=== PATIENT | male | born 1950 | race Caucasian/White ===

== ENCOUNTER 2023-08-09 14:44 | Inpatient (IN) | payer MEDICARE, SELFPAY ==
[2023-08-09] VITALS (15 sets, daily range): BP systolic 86–133; BP diastolic 65–96; BMI 27.6; BMI 26.3
--- NOTE | 2023-08-09 11:02 | ED.GENMED ---
History of Present Illness
General
Chief Complaint: Cardiac Symptoms
Source: patient
Exam Limitations: none
Time Seen by Provider: 08/09/23 10:39
Nursing documentation reviewed up to this point in time: agreed with
Travel History
Have you had any contact with someone who has COVID-19?: No
Do you have any symptoms of coronavirus? Fever > 100 degrees, chills, cough, shortness of breath, sore throat, loss of taste or smell, muscle aches, or headache?: No
History of Present Illness
History of Present Illness:
The patient is a 73-year-old male with past ministry of seizures paroxysmal A-fib currently on Eliquis and metoprolol, hyperlipidemia, known significant coronary artery disease presenting to the emergency department today with concerns of worsening
shortness of breath has been having this worsen over the past few months but specifically worsening over the past few days. Recently had a cardiac catheterization 1 week ago that showed at least 90% blockage of at least 3 coronary arteries. They
were recommending for surgery for this was getting assessed by the CT surgeon today to send him to the emergency department for further assessment due to significant ongoing symptoms. Here he claims of shortness of breath denies ongoing chest pain
no nausea vomiting fevers
Review of Systems
Review of Systems
Allergies reviewed?: Yes
All Other Systems: ROS reviewed and negative except as documented in HPI and ROS
Phy Exam
Physical Exam
Physical Exam:
GENERAL: Alert , in no apparent distress
EYE: pupils equal and reactive
NECK: Supple, no significant adenopathy.
ENT: o/p clr, mmm.
CARDIAC: Regular rate and rhythm .
LUNGS: Clear breath sounds bilaterally, no acute respiratory distress, no wheezes/rales/rhonchi
ABDOMEN: Soft, without focal tenderness, no r/g, no cvat
NEUROLOGICAL: Alert and oriented, no focal neuro deficits
SKIN: Warm and dry, skin intact.
MUSCULOSKELETAL: No edema, well perfused.
PSYCH: Normal and appropriate interaction.
Course
Orders/Labs/Results
Orders:
Orders
08/09/23 10:39
Electrocardiogram (*1) Routine
Reason for Study: Chest Pain
08/09/23 10:52
Complete Blood Count/With Diff Urgent
Comprehensive Metabolic Panel Urgent
NT-proBNP Urgent
Troponin I Urgent
08/09/23 10:55
Chest [CR Chest - 2 Views ] Urgent
Comment:
Reason For Exam: sob
08/09/23 11:27
Echo 2D MMode Color/Doppler Urgent
Reason for Study: hf, baum
Abnormal Lab Results
08/09/23
10:52
RBC 4.55 L 10^6/uL
(4.70-6.10)
MCH 34.1 H pg
(27.0-31.0)
Absolute Monos (auto) 0.8 H 10^3/uL
(0.1-0.6)
Monocytes % 10.5 H %
(1.7-9.3)
Sodium 132 L mmol/L
(135-145)
Carbon Dioxide 31 H mmol/L
(22-30)
BUN 21 H mg/dl
(9-20)
08/09/23 10:52
08/09/23 10:52
Vital Signs
Initial and Last Documented VS:
Initial Vital Signs
Temp Pulse Resp BP Pulse Ox
97.6 F 74 18 126/84 98
08/09/23 10:31 08/09/23 10:31 08/09/23 10:31 08/09/23 10:08/09/23 10:31
Last Documented Vital Signs
Temp Pulse Resp BP Pulse Ox
97.6 F 74 18 126/84 98
08/09/23 10:31 08/09/23 10:31 08/09/23 10:31 08/09/23 10:31 08/09/23 10:31
MDM/Problems Addressed
MDM/Problems Addressed:
73-year-old male presenting to the emergency department today with concerns of worsening shortness of breath over the past few months. Has known severe coronary artery disease with over 90% stenosis of 3 different vessels this was performed at
[facility]. He was seen by Dr. Brown of CT surgery they recommended coming to the emergency department for stat echo and admission for further assessment. Initial evaluation here with EKG with no ischemic changes. Labs unremarkable
troponin negative. Plan to admit for echo and further assessment.
*Critical Care Note
Total Time (30-74mins, 75-104mins- exclusive of procedures): Not Applicable
ED Attending Note
-
Portions of this chart may have been created with voice recognition software.� Occasional wrong word or��sound alike� substitutions may have occurred due to the inherent limitations of voice recognition software.
Discharge Plan
Departure
Patient Disposition: Admit
Date of Disposition: 08/09/23
Time of Disposition: 12:47
Admit to: Telemetry
Admit to doctor: Doroteo
Presentation/result/management discussed w/ accepting MD/DO: Hospitalist
Patient with high blood pressure during this ER visit?: No
Condition: Good
Covid-19: Not Applicable
Discharge Problem:
BAUM (dyspnea on exertion), Shortness of breath
Prescriptions:
No Action
metoprolol succinate [Toprol XL] 50 MG tablet extended release 24 hr
100 mg PO DAILY
phenytoin sodium extended 100 MG capsule
200 mg PO BID
Eliquis 5 MG tablet
5 mg PO BID
metoprolol succinate 50 mg Tablet Extended Release 24 Hr
75 mg PO QPM
tamsulosin 0.4 mg Capsule
0.4 mg PO NOON
diazepam 5 mg Tablet
5 mg PO HS PRN (Reason: muscle spasms/sleep)
Patient Comments:
08/09/2023, pt. filled this med. on 07/14/2023 for 90 tablets according to PDMP.
rosuvastatin 20 mg Tablet
20 mg PO DAILY
metoprolol tartrate 25 mg Tablet
25 mg PO DAILY PRN (Reason: rapid heart rates)
Calm Supplement
1 dose PO DAILY
Patient Comments:
08/09/2023, powder.
Trace Minerals Supplement
1 cap PO NOON
Referrals:
Josefa Stewart DO [Family Provider] -
[2023-08-09 11:05] LABS: % Basophils 0.8 % (0-2); % Immature Granulocytes 0.1 % (0-0.5); % Lymphocytes 26.4 % (20.5-51.1); % Monocytes 10.5 % (1.7-9.3); % Neutrophils 58.2 % (42.2-75.2); Absolute Basophils 0.1 10^3/uL (0-0.2); Absolute Eosinophils 0.3 10^3/uL (0-0.7); Absolute Monocytes 0.8 10^3/uL (0.1-0.6); Absolute Neutrophils 4.5 10^3/uL (1.4-6.5); Hematocrit 42.2 % (39.0-52.0); Hemoglobin 15.5 g/dL (13.0-18.0); Mean Corp Hgb Conc. 36.7 g/dL (33.0-37.0); Mean Corpuscular Hgb 34.1 pg (27.0-31.0); Mean Corpuscular Volume 92.7 fL (80.0-94.0); Mean Platelet Volume 8.6 fL (7.4-10.4); Nucleated Red Blood Cells % 0 % (-); Platelet Count 211 10^3/uL (130-400); Red Blood Cell Count 4.55 10^6/uL (4.70-6.10); Red Cell Dist. Width 11.9 % (11.5-14.5); White Blood Cell Count 7.7 10^3/uL (4.8-10.8)
[2023-08-09 11:17] LABS: ALT (SGPT) 23 U/L (0-50); AST (SGOT) 27 U/L (17-59); Albumin 4.4 g/dl (3.5-5.0); Alkaline Phosphatase 104 U/L (38-126); Blood Urea Nitrogen 21 mg/dl (9-20); Calcium 9.5 mg/dl (8.4-10.2); Carbon Dioxide 31 mmol/L (22-30); Chloride 99 mmol/L (98-107); Estimated Creatinine Clearance 64 ml/min; Glucose 78 mg/dl (70-99); Potassium 4.8 mmol/L (3.5-5.1); Sodium 132 mmol/L (135-145); Total Bilirubin 0.7 mg/dl (0.2-1.3); Total Protein 7.6 g/dl (6.3-8.2); eGFR > 60.00
[2023-08-09 11:29] LABS: NT-proBNP 224 pg/ml; Troponin I < 0.012 ng/ml
--- NOTE | 2023-08-09 14:18 | HPS.HSE ---
Family Physician
-
Family Physician: Josefa Stewart
Chief Complaint
-
dyspnea
History of Present Illness
73 M presents with dyspnea ongoing over the past approx 2 months. Underwent [facility] 08/03 that showed severe CAD. Pt was seen in Dr. Brown office and referred here as he appeared acutely dyspneic. Since then he does better. Pt has no chest pain. No
fever. No sick contacts. no dysuria. No neurological complaints. No other complaints.
Medical History
Past Medical History
Past Medical History: Reports Other (afib, seizure disorder)
Past Surgical History: Reports Other (r hip replacement )
Social History
Tobacco: Former Smoker
Alcohol: None
Drug: None
Family History
Family History: CAD (mother)
Allergies / Home Medications
Allergies reflects when Allergies were last updated in [facility].
Home Medications with original date entered in [facility]
Allergy/Medication List:
eliquis 5 mg PO BID
metoprolol 100 mg PO daily, 75 mg PO q PM
phenytoin 200 mg PO BID
rosuvastatin 20 mg PO daily
flomax 0.4 mg PO noon
Review of Systems
-
History Source: Patient
A 12 point ROS was completed and negative except as noted: Yes
Cardiac: Reports See HPI
Physical Exam
Vital Signs
Vital Signs
Temp Pulse Resp BP Pulse Ox
97.6 F 74 18 126/84 98
08/09/23 10:31 08/09/23 10:31 08/09/23 10:31 08/09/23 10:31 08/09/23 10:31
Physical Exam
General: Well Developed, Well Nourished and No Apparent Distress
HEENT: NormoCephalic, Moist mucous membranes and Atraumatic
Respiratory: Clear
Cardiac: S1/S2 and Regular Rhythm; No Murmur or Rub
GI: Soft, Non Tender, Non Distended and Normal Bowel Sounds; No Organomegaly
Rectal: Deferred by Provider
Musculoskeletal: No Clubbing, No Cyanosis and No Edema
Skin: No Rash
Neuro: Nonfocal/grossly intact
Laboratory Results
-
08/09/23 10:52
08/09/23 10:52
Laboratory Results
Total Bilirubin 0.7 mg/dl (0.2-1.3) 08/09/23 10:52
AST 27 U/L (17-59) 08/09/23 10:52
ALT 23 U/L (0-50) 08/09/23 10:52
Alkaline Phosphatase 104 U/L (38-126) 08/09/23 10:52
Troponin I < 0.012 ng/ml 08/09/23 10:52
Data Reviewed
-
Diagnostic Radiology: Report Reviewed by me
Impression/Plan
-
IMPRESSION:
Dyspnea related to severe CAD
paroxysmal atrial fibrillation
mild hyponatremia
Seizure disorder
Hx of R hip replacement
PLAN:
Admit to IVU
consult CT surgery and cardiology
Heart rates controlled
Pt currently in Afib in the ER
cont eliquis
Pt tells me he is being considered for MAZE procedure
Cont home phenytoin
Monitor sodium serially
DVT PPX - doac
d.w bedside
--- NOTE | 2023-08-09 14:23 | CON.CAR ---
Addendum entered and electronically signed by Gabino Lopez DO 08/09/23 16:53:
I saw and examined the patient.
The Medical Staff Coordinator's note was reviewed and I agree with the note.
Comment:
Plan:
HPI: Patient is a 73-year-old male with past medical history significant for seizures, paroxysmal atrial fibrillation with previous PVI ablation x 3 on chronic anticoagulation with Eliquis, hypertension, hyperlipidemia and recently diagnosed
multivessel coronary artery disease on cardiac cath at [facility] 08/03/2023.� Patient was referred to CT surgery and was found to have acute shortness of breath and chest discomfort on presentation to their office today.� He was sent to the emergency room
for evaluation.� In the emergency department chest x-ray demonstrates no acute cardiopulmonary disease.� EKG demonstrates normal sinus rhythm with incomplete right bundle branch block.� Troponin undetectable.� proBNP 224.� Hemoglobin stable 15.5.�
While sitting in emergency department patient reports he went into atrial fibrillation and he remains in atrial fibrillation.� Currently he is chest pain-free at rest but feels palpitations and intermittent shortness of breath.� He reports his
dyspnea and chest pain are generally more symptomatic when he is in atrial fibrillation.�
Patient is followed by Dr. Coombs for his usual cardiology care.� He most recently had PVI ablation with Dr. Mijares at [facility] in April 2023.
Plan:
Await further input from CT surgery regarding timing of CABG
IV heparin with Eliquis wash out
Consider Amiodarone for maintainance of sinus rhythm. Currently in sinus.
Echo with preserved EF.
pBNP is 224, appears euvolemic.
Trend trop
Cont Toprol and statin.
Original Note:
Consultation
Consultation Request
Date/Time Consultation Requested: 08/09/2023
Date/Time Consultation Performed: 08/09/2023
Requesting Provider: Dr. Page
Performing Provider: Manasa Ortiz PA-C for Dr. Gabino Lopez
Reason for Consultation: Shortness of breath, coronary artery disease
Medical History
-
History of Present Illness:
Patient is a 73-year-old male with past medical history significant for seizures, paroxysmal atrial fibrillation with previous PVI ablation x 3 on chronic anticoagulation with Eliquis, hypertension, hyperlipidemia and recently diagnosed multivessel
coronary artery disease on cardiac cath at [facility] 08/03/2023. Patient was referred to CT surgery and was found to have acute shortness of breath and chest discomfort on presentation to their office today. He was sent to the emergency room for
evaluation. In the emergency department chest x-ray demonstrates no acute cardiopulmonary disease. EKG demonstrates normal sinus rhythm with incomplete right bundle branch block. Troponin undetectable. proBNP 224. Hemoglobin stable 15.5. While
sitting in emergency department patient reports he went into atrial fibrillation and he remains in atrial fibrillation. Currently he is chest pain-free at rest but feels palpitations and intermittent shortness of breath. He reports his dyspnea and
chest pain are generally more symptomatic when he is in atrial fibrillation.
Patient is followed by Dr. Coombs for his usual cardiology care. He most recently had PVI ablation with Dr. Mijares at [facility] in April 2023.
PMH:
Multivessel coronary artery disease on cardiac catheterization August 03 2023
Paroxysmal atrial fibrillation/atrial tachycardia
Previously treated with propafenone
Status post PVI ablation 04/22/2021
Status post repeat PVI 12/10/2021
Cardioversion 03/2023
s/p repeat Ablation at [facility] w/ Dr. Mijares 05/01/2023
Implantable long-term awake overnight monitor performed at [facility]
Chronic anticoagulation with Eliquis
Hypertension
Hyperlipidemia
BPH
Past Medical History
Past Medical History: Other (See HPI)
Past Surgical History: Appendectomy, Cardiac (PVI ablation 2020 at , repeat ablation at 2021 , ablation at [facility] 04/2023), Orthopedic (Right hip replacement) and Other (LASIK surgery to both eyes)
Social History
Tobacco: Non-Smoker
Alcohol: None
Drug: None
Personal:
Living: With Family
Allergies / Home Medications
Allergy/AdvReac Type Severity Reaction Status Date / Time
No Known Allergies Allergy Verified 12/10/21 09:01
Medication Instructions Recorded Confirmed Type
apixaban 5 mg tablet (Eliquis) 5 mg PO BID 04/03/21 08/09/23 History
metoprolol succinate 50 mg 100 mg PO DAILY 04/03/21 08/09/23 History
tablet,extended release 24 hr
(Toprol XL)
phenytoin sodium extended 100 mg 200 mg PO BID 04/03/21 08/09/23 History
capsule
Calm Supplement 1 dose PO DAILY 08/09/23 08/09/23 History
Trace Minerals Supplement 1 cap PO NOON 08/09/23 08/09/23 History
diazepam 5 mg tablet 5 mg PO HS PRN muscle spasms/sleep 08/09/23 08/09/23 History
metoprolol succinate 50 mg 75 mg PO QPM 08/09/23 08/09/23 History
tablet,extended release 24 hr
metoprolol tartrate 25 mg tablet 25 mg PO DAILY PRN rapid heart 08/09/23 08/09/23 History
rates
rosuvastatin 20 mg tablet 20 mg PO DAILY 08/09/23 08/09/23 History
tamsulosin 0.4 mg capsule 0.4 mg PO NOON 08/09/23 08/09/23 History
Review of Systems
-
History Source: Patient
All other systems: Negative unless noted
Physical Exam
Vital Signs
Temp Pulse Resp BP Pulse Ox
97.6 F 74 18 126/84 98
08/09/23 10:31 08/09/23 10:31 08/09/23 10:31 08/09/23 10:31 08/09/23 10:31
GEN: No distress, awake, Ox3
HEENT: supple, anicteric, mmm
LUNGS: CTA, no wheezes/rales
CV: Irreh irreg, S1/S2, no murmur, rub or gallop
ABD: soft, BS+, NT/ND
EXT: No edema, clubbing or cyanosis
NEURO: Gross non-focal
SKIN: No rash, warm, dry, pink
Lab Results
08/09/23 10:52
08/09/23 10:52
Troponin I < 0.012 ng/ml 08/09/23 10:52
Phz-W-Kpcgdpnjfra Pept 224 pg/ml 08/09/23 10:52
Impression / Plan
-
Family Physician:� Josefa Stewart
Museum Service Scheduler: Dr. Coombs
Impression:
Presents 08/09/2023 with chest pain and dyspnea with minimal exertion
Multivessel coronary artery disease on cardiac catheterization August 03 2023
Paroxysmal atrial fibrillation/atrial tachycardia
Previously treated with propafenone
Status post PVI ablation 04/22/2021
Status post repeat PVI 12/10/2021
Cardioversion 03/2023
s/p repeat Ablation at [facility] w/ Dr. Mijares 05/01/2023
Implantable long-term awake overnight monitor performed at [facility]
Chronic anticoagulation with Eliquis
Hypertension
Hyperlipidemia
BPH
Left heart cath 08/03/2023 ([facility]): LM: LI. LAD: 99% ostial. D1 99% mid. LCX: Moderately calcified. 50% OM1. RCA 90% mid
Echocardiogram 08/09/2023: EF 55 to 60%. Mild concentric LVH. Mild MR, mild TR with PAP 30 to 35 mmHg
Plan:
Patient is a 73-year-old male with past medical history significant for seizures, paroxysmal atrial fibrillation with previous PVI ablation x 3 on chronic anticoagulation with Eliquis, hypertension, hyperlipidemia and recently diagnosed multivessel
coronary artery disease on cardiac cath at [facility] 08/03/2023. Patient was referred to CT surgery and was found to have acute shortness of breath and chest discomfort on presentation to their office today. He was sent to the emergency room for
evaluation. In the emergency department chest x-ray demonstrates no acute cardiopulmonary disease. EKG demonstrates normal sinus rhythm with incomplete right bundle branch block. Troponin undetectable. proBNP 224. Hemoglobin stable 15.5. While
sitting in emergency department patient reports he went into atrial fibrillation and he remains in atrial fibrillation. Currently he is chest pain-free at rest but feels palpitations and intermittent shortness of breath. He reports his dyspnea and
chest pain are generally more symptomatic when he is in atrial fibrillation.
Patient is followed by Dr. Coombs for his usual cardiology care. He most recently had PVI ablation with Dr. Mijares at [facility] in April 2023.
-Presents 08/09/2023 with intermittent chest pain and shortness of breath both at rest and with activity.
-Multivessel coronary artery disease including 99% ostial left main, 99% mid diagonal, 50% OM1 and 90% mid RCA stenosis found on cardiac catheterization 08/03/2023 at [facility]. Patient having escalating anginal symptoms.
-Troponin <0.012.
-proBNP 224. Patient does not have evidence of acute volume overload on examination. Chest x-ray unremarkable.
-Workup ongoing for CT surgery. Would recommend admission with plan for Eliquis washout and eventual CABG, RANDA clipping and MAZE after pre-surgery eval/work-up by CT surgery.
-Would start IV heparin drip while off Eliquis given paroxysmal atrial fibrillation.
-Initially EKG was in sinus rhythm however patient is now in atrial fibrillation with controlled ventricular response. Patient has history of PVI x 3. And admits to frequent episodes of paroxysmal atrial fibrillation on a daily basis.
-Continue Toprol 100 mg daily in a.m. and 75 mg in p.m. for rate control. Would consider addition of amiodarone.
-Echo as noted above with preserved ejection fraction and very mild mitral and tricuspid regurgitation.
-Continue rosuvastatin. Goal LDL less than 70
-History of seizure disorder continue phenytoin
Data Reviewed
-
EKG: Report Reviewed by me, Discussed with Physician, Discussed with Patient and Discussed with Family
Radiology: Report Reviewed by me, Discussed with Physician, Discussed with Patient and Discussed with Family
Medical Tests (Nuc Med, Echo etc): Report Reviewed by me, Discussed with Physician, Discussed with Patient and Discussed with Family
Labs: Labs Reviewed by me, Discussed with Physician, Discussed with Patient and Discussed with Family
Old Records: Reviewed
--- NOTE | 2023-08-09 16:42 | CONSULT.CT ---
Consultation
-
Date/Time Consultation Requested: 08/09
Date/Time Consultation Performed: 08/09 @ 1623
Performing Provider: Bia MARTINEZ for Dr. Omega Brown
Reason for Consultation: CABG evaluation
Patient History
Physicians
Family Physician: Dr. Josefa Stewart
Outpatient Scenery Builder: Dr. Coombs
History of Present Illness
73 year old male acutely dyspneic on arrival to CT office for CABG evaluation and referred to the ER. Patient has PMH significant for PAF x 4 years with associated shortness of breath and chest tightness. Patient on Eliquis x 1 year. Patient
underwent 3 cardioversions, 2 ablations and recent antiarrhythmic trials (Propafenone, Amiodarone, Tikosyn) without success. Recent cardiac cath at [facility] identified triple vessel coronary disease. Echo reported no significant valvular dysfunction and
normal EF. CXR normal and troponin negative. BNP 224. Currently symptom free in controlled atrial fibrillation (HR 90-100). Awaiting bed availability for admission.
TTE 08/09/23:
�EF 55-60%.� Mild concentric LVH. Normal right ventricle.Mild mitral regurgitation. Trace aortic insufficiency. Mild tricuspid regurgitation
Cardiac Cath 08/03/23 ([facility]):
Left Main: Calcified left main. Mild luminal regularities.���������
Left Anterior Descending: There is an almost dual LAD system with a large diagonal vessel. The true LAD reaches the apex. There is a 99% ostial LAD stenosis. The first diagonal is a very large�vessel, almost reaching the apex of the 99% mild
stenosis.���������
Circumflex: Left circumflex artery is a large sized vessel. Moderately calcified. 50% OM1 lesion.
Right Coronary: 90% mid
Past Medical History
Past Medical History: Other
PAF w/hx 3 cardioversions (last 03/30/23), 2 ablations, antiarrhythmic trials
Hypertension
Hyperlipidemia
Benign prostatic hypertrophy
Cervical stenosis
remote seizure disorder
Past Surgical History
Past Surgical History: Other (Right retinal surgery)
Right total hip arthroplasty 2015
right retinal shaving
neck discectomy and fusion surgery 09/2022�����
Appendectomy�����
loop recorderFletcher 04/21/2023
Family History
Mother: at Age (59-CAD)
Father: at Age
Social History
Alcohol: None
Drug: None
Tobacco: Former Smoker (cigarettes from age [age])
Personal:
Living: With Spouse
Employment: Retired (retired [employer])
Allergies
Allergy/AdvReac Type Severity Reaction Status Date / Time
No Known Allergies Allergy Verified 12/10/21 09:01
Home Medications
Medication Instructions Recorded Confirmed Type
apixaban 5 mg tablet (Eliquis) 5 mg PO BID 04/03/21 08/09/23 History
metoprolol succinate 50 mg 100 mg PO DAILY 04/03/21 08/09/23 History
tablet,extended release 24 hr
(Toprol XL)
phenytoin sodium extended 100 mg 200 mg PO BID 04/03/21 08/09/23 History
capsule
Calm Supplement 1 dose PO DAILY 08/09/23 08/09/23 History
Trace Minerals Supplement 1 cap PO NOON 08/09/23 08/09/23 History
diazepam 5 mg tablet 5 mg PO HS PRN muscle spasms/sleep 08/09/23 08/09/23 History
metoprolol succinate 50 mg 75 mg PO QPM 08/09/23 08/09/23 History
tablet,extended release 24 hr
metoprolol tartrate 25 mg tablet 25 mg PO DAILY PRN rapid heart 08/09/23 08/09/23 History
rates
rosuvastatin 20 mg tablet 20 mg PO DAILY 08/09/23 08/09/23 History
tamsulosin 0.4 mg capsule 0.4 mg PO NOON 08/09/23 08/09/23 History
Review of Systems
-
History Source: Patient
General: Reports No Symptoms
HEENT: Reports No Symptoms
Respiratory: Reports No Symptoms
Cardiac: Reports No Symptoms
Abdomen/GI: Reports No Symptoms
: Reports No Symptoms
Musculoskeletal: Reports No Symptoms
Skin: Reports No Symptoms
Neurological: Reports No Symptoms
Vascular: Reports No Symptoms
Physical Exam
Vital Signs
Temp 97.6 F 08/09/23 10:31
Temp route: Oral 08/09/23 10:31
Pulse 86 08/09/23 15:00
Resp Rate 26 08/09/23 15:00
Blood pressure 124/83 08/09/23 15:00
Blood pressure extremity used: Right upper arm 08/09/23 10:31
Position: Sitting 08/09/23 10:31
MAP (cuff-Matilda Monitor) 97 08/09/23 15:00
SaO2 94 08/09/23 15:00
Oxygen Mode of Delivery Room air 08/09/23 11:30
Acceptable pain level during hospitalization? 0 08/09/23 10:31
Actual Weight 77.6 kg 08/09/23 10:25
Body Mass Index (BMI) 27.6 08/09/23 10:25
Labs
08/09/23 10:52
08/09/23 10:52
Troponin I < 0.012 ng/ml 08/09/23 10:52
Kjc-C-Nohqgfkxpqi Pept 224 pg/ml 08/09/23 10:52
Exam
General: Well Developed, Well Nourished, No Apparent Distress and Comfortable
HEENT: Normocephalic, Anicteric, Moist Mucous Membranes and PERRLA
Respiratory: Clear and Other
Cardiac: S1/S2 and Irregular Rhythm
GI: Soft, Non Tender, Non Distended and Normal Bowel Sounds
Rectal: Deferred by Provider
Skin: Warm and Dry
Neuro: AO x 3 and Nonfocal/Grossly Intact
Extremities: Pulses (+2/4 DP pulses B/L)
Lymph: No Lymphadenopathy
Psych: Calm
Assessment / Plan
-
73 year old male with known triple vessel CAD with preserved EF and paroxysmal atrial fibrillation (on Eliquis) admitted for evaluation of chest tightness and shortness of breath.
- plan Eliquis wash out in preparation of CABG, MAZE, and left atrial appendage clip with Dr Brown next week
- check carotid US, T&S
- stop Eliquis and utilize�IV heparin drip while off Eliquis given paroxysmal atrial fibrillation
- phenytoin for history of seizure disorder
Data Reviewed
-
EKG: Report Reviewed by me and Discussed with Physician
Probation And Patrol Agent: Report Reviewed by me and Discussed with Physician
Echo: Report Reviewed by me and Discussed with Physician
Radiology: Report Reviewed by me and Discussed with Physician
Labs: Discussed with Physician and Discussed with Nurse
[2023-08-09] MEDS: TOPROL XL 75 MG PO (19:29)
[2023-08-09] MEDS: DILANTIN 200 MG PO (19:29)
[2023-08-09 20:42] LABS: Hematocrit 41.9 % (39.0-52.0); Hemoglobin 15.6 g/dL (13.0-18.0); Mean Corp Hgb Conc. 37.2 g/dL (33.0-37.0); Mean Corpuscular Hgb 34.4 pg (27.0-31.0); Mean Corpuscular Volume 92.5 fL (80.0-94.0); Mean Platelet Volume 8.6 fL (7.4-10.4); Platelet Count 224 10^3/uL (130-400); Red Blood Cell Count 4.53 10^6/uL (4.70-6.10); Red Cell Dist. Width 11.9 % (11.5-14.5)
[2023-08-09 20:55] LABS: APTT 32.2 Sec (23.4-35.0)
[2023-08-09] MEDS: HEPARIN 25000 UNITS/250 ML IV (21:05)
[2023-08-10] VITALS (11 sets, daily range): BP systolic 72–132; BP diastolic 44–87; BMI 26.3
[2023-08-10] MEDS: VALIUM 5 MG PO ×2 (00:46→23:00)
--- NOTE | 2023-08-10 01:28 | PTCARENOTE ---
Received patient from the ED via stretcher at approximately 0030. He ambulated into the room independently with a steady gait and no lightheadedness or dizziness. AAOx3. VSS. He is NSR on the monitor. HR in the 70s. INTx2 patent. Heparin drip
running at 9.5mL/hr. He denies chest pain or discomfort. Plan of care discussed. He is receptive to teaching and motivated. We discussed his medications and the plan to have tests done in anticipation of surgery. He had a few questions. These were
answered at this time. He understands to use his call dominique as needed and this is within reach. He denies pain and appears comfortable in bed at this time. Will continue to monitor.
[2023-08-10 03:59] LABS: % Basophils 0.6 % (0-2); % Eosinophils 4.3 % (0-6); % Immature Granulocytes 0.2 % (0-0.5); % Lymphocytes 28.4 % (20.5-51.1); % Monocytes 9.1 % (1.7-9.3); % Neutrophils 57.4 % (42.2-75.2); Absolute Basophils 0.1 10^3/uL (0-0.2); Absolute Eosinophils 0.4 10^3/uL (0-0.7); Absolute Lymphocytes 2.5 10^3/uL (1.2-3.4); Absolute Monocytes 0.8 10^3/uL (0.1-0.6); Absolute Neutrophils 5.1 10^3/uL (1.4-6.5); Hematocrit 41.6 % (39.0-52.0); Hemoglobin 15.2 g/dL (13.0-18.0); Mean Corp Hgb Conc. 36.5 g/dL (33.0-37.0); Mean Corpuscular Hgb 34.3 pg (27.0-31.0); Mean Corpuscular Volume 93.9 fL (80.0-94.0); Mean Platelet Volume 8.9 fL (7.4-10.4); Nucleated Red Blood Cells % 0 % (-); Platelet Count 204 10^3/uL (130-400); Red Blood Cell Count 4.43 10^6/uL (4.70-6.10); Red Cell Dist. Width 11.9 % (11.5-14.5); White Blood Cell Count 8.9 10^3/uL (4.8-10.8)
[2023-08-10] MEDS: CRESTOR 20 MG PO (08:54)
[2023-08-10] MEDS: TOPROL XL 100 MG PO (08:58)
[2023-08-10] MEDS: DILANTIN 200 MG PO ×2 (09:24→20:35)
[2023-08-10 09:42] LABS: Glycohemoglobin (HgbA1c) 5.6 % (4.0-5.6)
--- NOTE | 2023-08-10 09:54 | CM ---
Reviewed chart. Met with Mr. Stewart to review discharge plans. He states prior to admission he resides with his spouse in a two story home without any steps to enter. He states he has a first floor master suite and stays on the first floor. He
states prior to admission he was independent with ambulation and adls. He states he has a walker at home and no other DME in the home. He currently is not using the walker. He states he has a prescription plan and uses [facility]. He states his
spouse will be home to assist in his care if needed when he goes home. She is a retired RN. Awaiting the timing of surgery to be determined by the surgeon. Medical work-up in progress. The discharge plan is to return home with his spouse and and
home visit by the Cardiothoracic Transitional Care Nurse when medically stable.
--- NOTE | 2023-08-10 10:36 | W.PN.CARDCBS ---
Today's Communication / Plan
-
Continue IV Heparin for both USA and for hx PAfib with washout of Eliquis.
Chest pain AM 08/10/23, start NTP 1/2 in Q8 and titrate for pain control.
Trop negative and EF preserved by echo.
Consider Amiodarone for recurrent PAFib. will hold off for now with EKG with sinus with 2:[address] surgery work up in progress for eventual CABG and likely MAZE
Echo reviewed with pt with preserved EF and mild MR/TR
He appears euvolemic. pBNP is 224.
Cont Lipitor LDL goal is <70.
Impression / Plan
-
.
Family Physician:� Josefa Stewart
Solidworks Mechanical Designer: Dr. Coombs
Impression:
Presents 08/09/2023 with chest pain and dyspnea with minimal exertion
Unstable angina
Multivessel coronary artery disease on cardiac catheterization August 03 2023
EKG with sinus with 2:1 AVB
Paroxysmal atrial fibrillation/atrial tachycardia
Previously treated with propafenone
Status post PVI ablation 04/22/2021
Status post repeat PVI 12/10/2021
Cardioversion 03/2023
s/p repeat Ablation at [place] w/ Dr. Mijares 05/01/2023
Implantable long-term gambling monitor performed at [facility]
Chronic anticoagulation with Eliquis
Hypertension
Hyperlipidemia
BPH
Left heart cath 08/03/2023 ([facility]): LM: LI. LAD: 99% ostial. D1 99% mid. LCX: Moderately calcified. 50% OM1. RCA 90% mid
Echocardiogram 08/09/2023: EF 55 to 60%. Mild concentric LVH. Mild MR, mild TR with PAP 30 to 35 mmHg
Plan:
Continue IV Heparin for both USA and for hx PAfib with washout of Eliquis.
Chest pain AM 08/10/23, start NTP 1/2 in Q8 and titrate for pain control.
Trop negative and EF preserved by echo.
Consider Amiodarone for recurrent PAFib. will hold off for now with EKG with sinus with 2:[address] surgery work up in progress for eventual CABG and likely MAZE
Echo reviewed with pt with preserved EF and mild MR/TR
He appears euvolemic. pBNP is 224.
Cont Lipitor LDL goal is <70.
Cont Toprol.
Pt takes Dilantin for seizure disorder.
Discussed with primary service and with nursing.
Discussed with CT surgery
HPI: Patient is a 73-year-old male with past medical history significant for seizures, paroxysmal atrial fibrillation with previous PVI ablation x 3 on chronic anticoagulation with Eliquis, hypertension, hyperlipidemia and recently diagnosed
multivessel coronary artery disease on cardiac cath at [facility] 08/03/2023. Patient was referred to CT surgery and was found to have acute shortness of breath and chest discomfort on presentation to their office today. He was sent to the emergency room
for evaluation. In the emergency department chest x-ray demonstrates no acute cardiopulmonary disease. EKG demonstrates normal sinus rhythm with incomplete right bundle branch block. Troponin undetectable. proBNP 224. Hemoglobin stable 15.5.
While sitting in emergency department patient reports he went into atrial fibrillation and he remains in atrial fibrillation. Currently he is chest pain-free at rest but feels palpitations and intermittent shortness of breath. He reports his
dyspnea and chest pain are generally more symptomatic when he is in atrial fibrillation.
Patient is followed by Dr. Coombs for his usual cardiology care. He most recently had PVI ablation with Dr. Mijares at [facility] in April 2023.
Progress Note - Solidworks Mechanical Designer
Subjective
Date of Service: August 10, 2023
Pt seen and examined. Some chest tightness this AM
Objective
Labs:
08/10/23 03:30
08/09/23 10:52
Labs
Hgb 15.2 g/dL (13.0-18.0) 08/10/23 03:30
Hct 41.6 % (39.0-52.0) 08/10/23 03:30
Plt Count 204 10^3/uL (130-400) 08/10/23 03:30
APTT 53.0 Sec (23.4-35.0) H 08/10/23 03:30
Sodium 132 mmol/L (135-145) L 08/09/23 10:52
Potassium 4.8 mmol/L (3.5-5.1) 08/09/23 10:52
BUN 21 mg/dl (9-20) H 08/09/23 10:52
Creatinine 0.9 mg/dL (0.7-1.3) 08/09/23 10:52
Glucose 78 mg/dl (70-99) 08/09/23 10:52
Troponins
08/09/23
10:52
Troponin I < 0.012
Vital Signs and I&O:
Vital Signs
Temp Pulse Resp BP Pulse Ox
98.2 F 86 20 132/87 96
08/10/23 07:11 08/10/23 08:45 08/10/23 07:11 08/10/23 07:13 08/10/23 09:00
Vital Signs
Temp Pulse Resp BP Pulse Ox
98.2 F 86 20 132/87 96
08/10/23 07:11 08/10/23 08:45 08/10/23 07:11 08/10/23 07:13 08/10/23 09:00
Intake & Output
08/08/23 08/09/23 08/10/23 08/11/23
06:59 06:59 06:59 06:59
Intake Total 480 / 480
Balance 480 / 480
Physical Exam
Physical Exam
General: No acute distress, AAOX3
Neck: Negative JVD
Heart: Regular, Negative S3 positive S1/S2, Negative S4, No murmur
Lungs: CTA b/l, negative wheezes/rales/rhonchi
Abd: Positive BS, NT/ND, neg rebound/rigidity/guarding
Ext: Negative cyanosis/clubbing/edema
Neuro: nonfocal
[2023-08-10] MEDS: NITRO-BID 0.5 INCH TOPICAL ×3 (11:13→23:00)
--- NOTE | 2023-08-10 11:33 | W.PN.UPDATE ---
Update Note
Progress Note Update
Pt seen this am. Ongoing eliquis washout. Plan for Cabg next week.
Preop testing ordered.
[2023-08-10 11:53] LABS: APTT 73.4 Sec (23.4-35.0)
[2023-08-10] MEDS: FLOMAX 0.400000000000000022 MG PO (12:20)
--- NOTE | 2023-08-10 13:49 | W.PN.HOSP.TC ---
Today's Communication/Plan
-
Monitor vitals
See plan
Unstable angina, start nitro
Continue with IV heparin
CABG eval ongoing
Assessment / Plan
Assessment / Plan
General: Well Developed, Well Nourished and No Apparent Distress
HEENT: NormoCephalic, Moist mucous membranes and Atraumatic
Respiratory: Clear
Cardiac: S1/S2 and Regular Rhythm; No Murmur or Rub
GI: Soft, Non Tender, Non Distended and Normal Bowel Sounds; No Organomegaly
Rectal: Deferred by Provider
Musculoskeletal: No Clubbing, No Cyanosis and No Edema
Skin: No Rash
Neuro: Nonfocal/grossly intact
Dyspnea related to severe CAD and unstable angina
paroxysmal atrial fibrillation
mild hyponatremia
Seizure disorder
Hx of R hip replacement
PLAN:
Admit to IVU
CT surgery and cardiology following. Plan for CABG next week
Started on IV heparin. Continue with nitro
Heart rates controlled; currently on metoprolol. Cardiology will be considering amiodarone due to recurrent A-fib.
Echo with preserved EF, mild TR/MR
Pt currently in Afib in the ER
Holding Eliquis for CABG
Cont home phenytoin
Monitor sodium serially
DVT PPX - heparin
Anticipated Discharge: > 48 hours
Subjective/Interval History
-
Date of Service: August 10, 2023
Has some chest discomfort
Objective Data
-
Labs:
Laboratory Results
08/10/23 08/10/23 08/10/23
03:30 11:27 18:00
WBC 8.9
Hgb 15.2
Hct 41.6
Plt Count 204
APTT 53.0 H 73.4 H Pending
Vital Signs:
Vital Signs
Temp Pulse Resp BP Pulse Ox
97.9 F 82 18 107/72 96
08/10/23 11:22 08/10/23 11:45 08/10/23 11:22 08/10/23 11:13 08/10/23 09:00
I&O
08/09/23 08/10/23 08/11/23
06:59 06:59 06:59
Intake Total 480 / 480
Balance 480 / 480
--- NOTE | 2023-08-10 15:24 | W.PN.UPDATE ---
Update Note
Progress Note Update
CARDIAC SURGERY ATTENDING:
I had a long conversation w/ Mr. Stewart and his this morning. We reviewed his pathology, the proposed operative interventions, the associated operative risks (including, but not limited to, , stroke, NJ, arrythmia, PPM requirement, PNA,
GIULIA/F, infection, and bleeding), the expected in-hospital postoperative course, and the expected outpatient recovery. All questions were answered to the best of my abilities. The patient is agreeable to proceed.
- CABG 3-4, [facility] on 08/15/2023
- T&C for 2U PRBC
CATH:99% ostial LAD, 99% mid D1, 50% OM1, 90% mid-RCA
ECHO: LVEF 55-60% w/ mild LVH, mild MR, trace AI, mild TR (PASP 30-35)
EKG: NSR @ 69, NC 158, QRS 98, QTc 432
CAROTIDS: < 50% B/L w/ antegrade vert flow B/L
CXR: No active disease. Minor arch Ca, no sig ascending Ca
LABS: 7.7>13.7 (37.6)<183; 18/0.9, BS 106
STS: Mort: 1.46, Morb/Mort: 6.03
--- NOTE | 2023-08-10 15:26 | W.PN.UPDATE ---
Update Note
Progress Note Update
STS RISK SCORE
Procedure Type:�Isolated CABG
Perioperative Outcome Estimate %
Operative Mortality 1.46%
Morbidity & Mortality 6.03%
Stroke 0.8%
Renal Failure 0.8%
Reoperation 2.22%
Prolonged Ventilation 3.13%
Deep Sternal Wound Infection 0.106%
Long Hospital Stay (>14 days) 3.98%
Short Hospital Stay (<6 days)* 43%
Clinical Summary
Planned Surgery: Isolated CABG, Urgent, First cardiovascular surgery
Demographics: 73 year old, White, male, 73.8kg, 168cm, BMI: 26.2 kg/m�
Lab Values: Creatinine: 0.9 mg/dL, Hematocrit: 41.6%, WBC Count: 8.9 10�/�L, Platelet Count: 372470 cells/�L
Substance Abuse: Former smoker
Risk Factors / Comorbidities: Hypertension
Cardiac Status: NYHA Class II, Ejection Fraction = 57%
Coronary Artery Disease: 3 vessels diseased, Unstable Angina
Valve Disease: Trivial/Trace AR, Mild MR, Mild TR
Arrhythmia: Recent A-fib, Paroxysmal
[2023-08-10] MEDS: HEPARIN 25000 UNITS/250 ML IV (17:12)
[2023-08-10] MEDS: TOPROL XL 75 MG PO (17:16)
[2023-08-10 18:21] LABS: APTT 63.1 Sec (23.4-35.0)
--- NOTE | 2023-08-10 19:32 | PTCARENOTE ---
Pt c/o 08/27 chest tightness which he states he usually treats at home with chamomile tea or valium. notified, discomfort was relieved with nitropaste. Telemetry shows sinus rhythm with paroxysmal atrial fib. Heart rate up 150 briefly with
activity, (pt very aware of his racing heart) , resting rate is 70's.
[2023-08-11] VITALS (8 sets, daily range): BP systolic 90–124; BP diastolic 63–84
[2023-08-11 00:59] LABS: APTT 144.9 Sec (23.4-35.0)
--- NOTE | 2023-08-11 06:46 | W.PN.UPDATE ---
Update Note
Progress Note Update
-pt is sleeping, comfortable
-discussed with nurse- no CP overnight
-pt had CP 08/10 and was started on Nitro paste
-iv Heparin renewed
-low BP 90s- monitor on Toprol 100 am and 75 pm, in nsr
-plans for CABG next week, tentatively Wed 08/17
[2023-08-11] MEDS: NITRO-BID 0.5 INCH TOPICAL ×2 (08:43→16:48)
[2023-08-11] MEDS: DILANTIN 200 MG PO ×2 (08:43→20:14)
[2023-08-11] MEDS: CRESTOR 20 MG PO (08:43)
[2023-08-11] MEDS: TOPROL XL 100 MG PO (08:44)
[2023-08-11 09:17] LABS: % Basophils 0.6 % (0-2); % Immature Granulocytes 0.2 % (0-0.5); % Lymphocytes 21.5 % (20.5-51.1); % Monocytes 8.6 % (1.7-9.3); % Neutrophils 65.1 % (42.2-75.2); Absolute Basophils 0.1 10^3/uL (0-0.2); Absolute Eosinophils 0.3 10^3/uL (0-0.7); Absolute Lymphocytes 1.8 10^3/uL (1.2-3.4); Absolute Monocytes 0.7 10^3/uL (0.1-0.6); Absolute Neutrophils 5.5 10^3/uL (1.4-6.5); Hemoglobin 14.8 g/dL (13.0-18.0); Mean Corp Hgb Conc. 36.1 g/dL (33.0-37.0); Mean Corpuscular Hgb 34.3 pg (27.0-31.0); Mean Corpuscular Volume 94.9 fL (80.0-94.0); Mean Platelet Volume 8.7 fL (7.4-10.4); Nucleated Red Blood Cells % 0 % (-); Platelet Count 194 10^3/uL (130-400); Red Blood Cell Count 4.32 10^6/uL (4.70-6.10); Red Cell Dist. Width 11.9 % (11.5-14.5); White Blood Cell Count 8.5 10^3/uL (4.8-10.8)
--- NOTE | 2023-08-11 09:58 | W.PN.CARDCBS ---
Today's Communication / Plan
-
Continue IV heparin.
Start amiodarone 200 mg p.o. twice daily.
Continue metoprolol and Crestor.
Still having bursts of atrial arrhythmias.
Will discuss with CT surgery timing of CABG/maze
Impression / Plan
-
.
Family Physician:� Josefa Stewart
Director Of Hotel: Dr. Coombs
Impression:
Presents 08/09/2023 with chest pain and dyspnea with minimal exertion
Unstable angina
Multivessel coronary artery disease on cardiac catheterization August 03 2023
EKG with sinus with 2:1 AVB
Paroxysmal atrial fibrillation/atrial tachycardia
Previously treated with propafenone
Status post PVI ablation 04/22/2021
Status post repeat PVI 12/10/2021
Cardioversion 03/2023
s/p repeat Ablation at [place] w/ Dr. Mijares 05/01/2023
Implantable long-term awake overnight monitor performed at [place]
Chronic anticoagulation with Eliquis
Hypertension
Hyperlipidemia
BPH
Left heart cath 08/03/2023 ([facility]): LM: LI. LAD: 99% ostial. D1 99% mid. LCX: Moderately calcified. 50% OM1. RCA 90% mid
Echocardiogram 08/09/2023: EF 55 to 60%. Mild concentric LVH. Mild MR, mild TR with PAP 30 to 35 mmHg
Plan:
Continue IV Heparin for both USA and for hx PAfib with washout of Eliquis.
No further chest pains. Continue IV heparin.
Trop negative and EF preserved by echo.
He is having paroxysms of atrial fibrillation and atrial tachycardia with occasional 2-1 block. Will start amiodarone 200 mg p.o. twice daily continue telemetry.
CT surgery work up in progress for eventual CABG and likely MAZE. Likely next week.
Echo reviewed with pt with preserved EF and mild MR/TR
He appears euvolemic. pBNP is 224.
Cont Lipitor LDL goal is <70.
Cont Toprol.
Pt takes Dilantin for seizure disorder.
Discussed with primary service and with nursing.
Discussed with CT surgery
HPI: Patient is a 73-year-old male with past medical history significant for seizures, paroxysmal atrial fibrillation with previous PVI ablation x 3 on chronic anticoagulation with Eliquis, hypertension, hyperlipidemia and recently diagnosed
multivessel coronary artery disease on cardiac cath at [facility] 08/03/2023. Patient was referred to CT surgery and was found to have acute shortness of breath and chest discomfort on presentation to their office today. He was sent to the emergency room
for evaluation. In the emergency department chest x-ray demonstrates no acute cardiopulmonary disease. EKG demonstrates normal sinus rhythm with incomplete right bundle branch block. Troponin undetectable. proBNP 224. Hemoglobin stable 15.5.
While sitting in emergency department patient reports he went into atrial fibrillation and he remains in atrial fibrillation. Currently he is chest pain-free at rest but feels palpitations and intermittent shortness of breath. He reports his
dyspnea and chest pain are generally more symptomatic when he is in atrial fibrillation.
Patient is followed by Dr. Coombs for his usual cardiology care. He most recently had PVI ablation with Dr. Mijares at [facility] in April 2023.
Progress Note - Director Of Hotel
Subjective
Date of Service: August 11, 2023
He is having intermittent palpitations. Denies any chest pains.
Objective
Labs:
08/11/23 09:04
Labs
Hgb 14.8 g/dL (13.0-18.0) 08/11/23 09:04
Hct 41.0 % (39.0-52.0) 08/11/23 09:04
Plt Count 194 10^3/uL (130-400) 08/11/23 09:04
APTT 125.0 Sec (23.4-35.0) H 08/11/23 09:04
Sodium 132 mmol/L (135-145) L 08/09/23 10:52
Potassium 4.8 mmol/L (3.5-5.1) 08/09/23 10:52
BUN 21 mg/dl (9-20) H 08/09/23 10:52
Creatinine 0.9 mg/dL (0.7-1.3) 08/09/23 10:52
Glucose 78 mg/dl (70-99) 08/09/23 10:52
Troponins
08/09/23
10:52
Troponin I < 0.012
Vital Signs and I&O:
Vital Signs
Temp Pulse Resp BP Pulse Ox
98.4 F 106 20 124/73 93
08/11/23 07:28 08/11/23 08:30 08/11/23 07:28 08/11/23 07:30 08/11/23 08:36
Vital Signs
Temp Pulse Resp BP Pulse Ox
98.4 F 106 20 124/73 93
08/11/23 07:28 08/11/23 08:30 08/11/23 07:28 08/11/23 07:30 08/11/23 08:36
Intake & Output
08/09/23 08/10/23 08/11/23 08/12/23
06:59 06:59 06:59 06:59
Intake Total 480 / 480 138 / 138
Output Total 240 / 240
Balance 480 / 480 -102 / -102
Physical Exam
Physical Exam
GEN: No distress, awake, Ox3
HEENT: supple, anicteric, mmm
LUNGS: CTA, no wheezes/rales
CV: Reg, S1/S2, 1/6 syst LSB, no gallop
ABD: soft, BS+, NT/ND
EXT: No edema
NEURO: Gross non-focal
SKIN: No rash
[2023-08-11 10:24] LABS: Blood Urea Nitrogen 19 mg/dl (9-20); Calcium 9.4 mg/dl (8.4-10.2); Carbon Dioxide 30 mmol/L (22-30); Chloride 102 mmol/L (98-107); Estimated Creatinine Clearance 64 ml/min; Glucose 103 mg/dl (70-99); Potassium 4.8 mmol/L (3.5-5.1); Sodium 135 mmol/L (135-145); eGFR > 60.00
[2023-08-11] MEDS: PACERONE 200 MG PO (10:56)
[2023-08-11] MEDS: FLOMAX 0.400000000000000022 MG PO (12:13)
[2023-08-11] MEDS: LOW STRENGTH ASPIRIN 81 MG PO (13:40)
[2023-08-11] MEDS: HEPARIN 25000 UNITS/250 ML IV (16:23)
[2023-08-11 16:58] LABS: APTT 87.2 Sec (23.4-35.0)
[2023-08-11] MEDS: TOPROL XL 75 MG PO (18:21)
--- NOTE | 2023-08-11 19:24 | PTCARENOTE ---
Pt denied any chest discomfort today but stated his frustrations with the long wait for his surgery. Pt given amiodarone today, telemetry showed sinus rhythm with frequent pac's at times and rare PVC's.
--- NOTE | 2023-08-11 20:00 | PTCARENOTE ---
Patient in chair. Heparin infusing per MAR. Denies chest pain. SR, frequent PAC's. Call dominique in reach
[2023-08-12] MEDS: NITRO-BID 0.5 INCH TOPICAL ×3 (00:18→15:56)
[2023-08-12] MEDS: VALIUM 5 MG PO (00:19)
[2023-08-12 01:35] LABS: APTT 94.2 Sec (23.4-35.0)
[2023-08-12 04:37] VITALS: BP 124/84
[2023-08-12 05:10] LABS: % Basophils 0.5 % (0-2); % Eosinophils 5.5 % (0-6); % Immature Granulocytes 0.4 % (0-0.5); % Lymphocytes 31.4 % (20.5-51.1); % Monocytes 10.7 % (1.7-9.3); % Neutrophils 51.5 % (42.2-75.2); Absolute Eosinophils 0.4 10^3/uL (0-0.7); Absolute Lymphocytes 2.5 10^3/uL (1.2-3.4); Absolute Monocytes 0.8 10^3/uL (0.1-0.6); Absolute Neutrophils 4.1 10^3/uL (1.4-6.5); Hematocrit 39.3 % (39.0-52.0); Hemoglobin 13.8 g/dL (13.0-18.0); Mean Corp Hgb Conc. 35.1 g/dL (33.0-37.0); Mean Corpuscular Hgb 34.3 pg (27.0-31.0); Mean Corpuscular Volume 97.8 fL (80.0-94.0); Mean Platelet Volume 9.1 fL (7.4-10.4); Nucleated Red Blood Cells % 0 % (-); Platelet Count 188 10^3/uL (130-400); Red Blood Cell Count 4.02 10^6/uL (4.70-6.10); Red Cell Dist. Width 11.9 % (11.5-14.5); White Blood Cell Count 7.9 10^3/uL (4.8-10.8)
[2023-08-12 05:31] LABS: Dilantin 17.5 ug/ml (10-20)
[2023-08-12 05:47] LABS: Blood Urea Nitrogen 18 mg/dl (9-20); Calcium 9.4 mg/dl (8.4-10.2); Carbon Dioxide 23 mmol/L (22-30); Chloride 103 mmol/L (98-107); Estimated Creatinine Clearance 64 ml/min; Glucose 106 mg/dl (70-99); Potassium 4.9 mmol/L (3.5-5.1); Sodium 137 mmol/L (135-145); eGFR > 60.00
[2023-08-12 08:08] VITALS: BP 128/81
[2023-08-12] MEDS: DILANTIN 200 MG PO ×2 (08:53→19:48)
[2023-08-12] MEDS: CRESTOR 20 MG PO (08:54)
[2023-08-12] MEDS: TOPROL XL 100 MG PO (08:54)
[2023-08-12] MEDS: PACERONE 200 MG PO (08:54)
[2023-08-12] MEDS: LOW STRENGTH ASPIRIN 81 MG PO (08:54)
--- NOTE | 2023-08-12 09:27 | PTCARENOTE ---
on walking rounds this am, when entering room patient is visibly upset, patient would like to see a surgeon today, went to [facility] and expressed this to [employer], PA's, they said they will relay message to surgeon. informed patient and he is looking forward
to talking with surgeon and getting a game plan.
--- NOTE | 2023-08-12 11:05 | PTCARENOTE ---
U/A obtained and sent to lab as ordered.
[2023-08-12 11:10] VITALS: BP 109/75
[2023-08-12 11:28] LABS: Urine Albumin Negative (Neg - Trace); Urine Bilirubin Negative (Negative); Urine Character Clear (Clear); Urine Color Yellow; Urine Glucose Negative (Negative); Urine Ketone Negative (Negative); Urine Leukocyte Negative (Negative); Urine Nitrite Negative (Negative); Urine Occult Blood Negative (Negative); Urine Specific Gravity 1.015 (<1.030); Urine Urobilinogen Negative (Neg - 1+)
[2023-08-12] MEDS: FLOMAX 0.400000000000000022 MG PO (12:05)
--- NOTE | 2023-08-12 12:13 | PTCARENOTE ---
Addendum entered by Ariela Delgado RN 08/12/23 13:20:
Dr. To saw patient, will hold amiodarone as ordered.
Original Note:
patient sitting up in chair saying 'I feel like I took 3 Valium's' patient is 'winded' and just doesn't feel good after taking Amiodarone. Maria C ADDICTION SOCIAL WORKER aware. monitor remains SA, BP 109/75, o2 sat 97% on RA.
--- NOTE | 2023-08-12 13:08 | W.PN.CARDCBS ---
Today's Communication / Plan
-
DC amiodarone as appears to have difficulty tolerating this med
For CABG and maze 06/15/24
Continue IV heparin
Discussed with at bedside
Impression / Plan
-
.
Family Physician:� Josefa Stewart
Fur Finisher: Dr. Coombs
Impression:
Presents 08/09/2023 with chest pain and dyspnea with minimal exertion
Unstable angina
Multivessel coronary artery disease on cardiac catheterization August 03 2023
EKG with sinus with 2:1 AVB
Paroxysmal atrial fibrillation/atrial tachycardia
Previously treated with propafenone
Status post PVI ablation 04/22/2021
Status post repeat PVI 12/10/2021
Cardioversion 03/2023
s/p repeat Ablation at [place] w/ Dr. Mijares 05/01/2023
Implantable long-term monitor tech performed at [place]
Chronic anticoagulation with Eliquis
Hypertension
Hyperlipidemia
BPH
Left heart cath 08/03/2023 ([facility]): LM: LI. LAD: 99% ostial. D1 99% mid. LCX: Moderately calcified. 50% OM1. RCA 90% mid
Echocardiogram 08/09/2023: EF 55 to 60%. Mild concentric LVH. Mild MR, mild TR with PAP 30 to 35 mmHg
Plan:
Continue IV Heparin for both USA and for hx PAfib with washout of Eliquis.
Plan is for CABG tentatively on 08/15/2023
Was having episodes of PAT and atrial fibrillation but seems to be having difficulty tolerating amiodarone
Will hold amiodarone for now
For likely MAZE at time of CABG
Discussed with at bedside
HPI: Patient is a 73-year-old male with past medical history significant for seizures, paroxysmal atrial fibrillation with previous PVI ablation x 3 on chronic anticoagulation with Eliquis, hypertension, hyperlipidemia and recently diagnosed
multivessel coronary artery disease on cardiac cath at [facility] 08/03/2023. Patient was referred to CT surgery and was found to have acute shortness of breath and chest discomfort on presentation to their office today. He was sent to the emergency room
for evaluation. In the emergency department chest x-ray demonstrates no acute cardiopulmonary disease. EKG demonstrates normal sinus rhythm with incomplete right bundle branch block. Troponin undetectable. proBNP 224. Hemoglobin stable 15.5.
While sitting in emergency department patient reports he went into atrial fibrillation and he remains in atrial fibrillation. Currently he is chest pain-free at rest but feels palpitations and intermittent shortness of breath. He reports his
dyspnea and chest pain are generally more symptomatic when he is in atrial fibrillation.
Patient is followed by Dr. Coombs for his usual cardiology care. He most recently had PVI ablation with Dr. Mijares at [facility] in April 2023.
Progress Note - Fur Finisher
Subjective
Date of Service: August 12, 2023
He feels terrible after taking amiodarone. No chest pain.
Objective
Labs:
08/12/23 04:44
08/12/23 04:44
Labs
Hgb 13.8 g/dL (13.0-18.0) 08/12/23 04:44
Hct 39.3 % (39.0-52.0) 08/12/23 04:44
Plt Count 188 10^3/uL (130-400) 08/12/23 04:44
APTT 94.2 Sec (23.4-35.0) H 08/12/23 00:18
Sodium 137 mmol/L (135-145) 08/12/23 04:44
Potassium 4.9 mmol/L (3.5-5.1) 08/12/23 04:44
BUN 18 mg/dl (9-20) 08/12/23 04:44
Creatinine 0.9 mg/dL (0.7-1.3) 08/12/23 04:44
Glucose 106 mg/dl (70-99) H 08/12/23 04:44
Vital Signs and I&O:
Vital Signs
Temp Pulse Resp BP Pulse Ox
97.3 F 68 16 128/81 96
08/12/23 11:38 08/12/23 11:38 08/12/23 11:38 08/12/23 08:54 08/12/23 09:30
Vital Signs
Temp Pulse Resp BP Pulse Ox
97.3 F 68 16 128/81 96
08/12/23 11:38 08/12/23 11:38 08/12/23 11:38 08/12/23 08:54 08/12/23 09:30
Intake & Output
08/10/23 08/11/23 08/12/23 08/13/23
06:59 06:59 06:59 06:59
Intake Total 480 / 480 138 / 138 110 / 110
Output Total 240 / 240
Balance 480 / 480 -102 / -102 110 / 110
Physical Exam
Physical Exam
General: Well developed, well nourished in NAD.
Neck: Supple, no JVD, HJR, carotids +2 B/L, no bruits bilaterally.
Heart: Non displaced PMI, RRR, no murmurs, No S3, S4, no rubs.
Lungs: Clear to auscultation bilaterally, no wheeze, rhonchi, rubs bilaterally,
normal expiratory phase.
Extremities: No clubbing, cyanosis or edema bilaterally.
Neuro: Grossly nonfocal, awake, alert and oriented x3.
[2023-08-12 13:35] VITALS: BP 137/72
--- NOTE | 2023-08-12 13:43 | PTCARENOTE ---
patient c/o chest pressure and feeling SOB, Dr. Brown aware, troponin and EKG obtained as ordered. o2 2LNC, put on for comfort, o2 sat 98%.
[2023-08-12] MEDS: HEPARIN 25000 UNITS/250 ML IV (14:09)
[2023-08-12 14:32] LABS: Troponin I < 0.012 ng/ml
--- NOTE | 2023-08-12 15:02 | CM ---
Addendum entered by Jayleen Fry 08/12/23 15:10:
He has the Cardiothoracic Surgery Educational Booklet.
Original Note:
Reviewed chart. Met with Mr. Stewart to review discharge plans. Prior to admission he resides with his spouse in a two story home without any steps to enter. He has his main suite on the first floor. He stays on the first floor. Prior to admission
he was independent with ambulation and adls. He has a walker at home and not other DME. He currently is not using the walker. He has a prescription plan and uses [facility]. His spouse will be home to assist in his care if needed when he goes
home. His spouse is a retired RN. Medical work-up in progress. The discharge plan is to return home with his spouse and a home visit by the Cardiothoracic Transitional Care Nurse when medically stable.
We reviewed pre-op and post-op routines. We briefly reviewed the shower instructions. We also reviewed restrictions including sternal precautions and driving restrictions. We discussed a home visit by the Cardiothoracic Transitional Care Nurse.
He is agreeable to a home visit. The plan is for a CABG on 08/15/23.
[2023-08-12 15:51] VITALS: BP 113/71
[2023-08-12] MEDS: TOPROL XL 75 MG PO (18:02)
[2023-08-12 19:46] VITALS: BP 107/64
--- NOTE | 2023-08-12 19:55 | W.PN.HOSP.TC ---
Today's Communication/Plan
-
planned CABG on Tuesday
continue IV Heparin
Assessment / Plan
Assessment / Plan
Dyspnea related to severe CAD and unstable angina
paroxysmal atrial fibrillation
mild hyponatremia
Seizure disorder
Hx of R hip replacement
PLAN:
continue in IVU
CT surgery and cardiology following. Plan for CABG on 08/15
Started on IV heparin. Continue with nitro
Heart rates controlled; currently on metoprolol. Cardiology will be holding amiodarone due apparent intolerance.
Echo with preserved EF, mild TR/MR
Pt on my review of tele monitor appears to be in primary A.Fib with freq sinus beats
Holding Eliquis for CABG on Heparin
Cont home phenytoin
Monitor sodium serially
DVT PPX - heparin
Anticipated Discharge: > 48 hours
Subjective/Interval History
-
Date of Service: August 12, 2023
Awake, alert, no chest pain currently, though still feels lousy as he relates to Amiodarone
Objective Data
-
Vital Signs:
Vital Signs
Temp Pulse Resp BP Pulse Ox
97.5 F 79 14 113/71 95
08/12/23 15:50 08/12/23 18:15 08/12/23 15:50 08/12/23 18:02 08/12/23 15:50
I&O
08/11/23 08/12/23 08/13/23
06:59 06:59 06:59
Intake Total 138 / 138 110 / 110
Output Total 240 / 240
Balance -102 / -102 110 / 110
Review of Systems
-
History Source: Patient
Constitutional: Denies Fever
EENT: Reports No Symptoms Reported
Respiratory: Denies Trouble Breathing
Cardiac: Denies Chest Pain
Abdomen/GI: Reports No Symptoms
Genitourinary: Reports No Symptoms
Physical Exam
-
General: Well Developed, Well Nourished and No Apparent Distress
HEENT: Normocephalic, Atraumatic and Moist Mucous Membranes
Respiratory: Clear to Auscultation; Negative Wheezes, Rales or Rhonchi
Cardiac: Regular Rhythm and S1/S2
GI: Soft, Nontender and Nondistended
--- NOTE | 2023-08-12 22:35 | PTCARENOTE ---
Pt without complaints so far this shift- Heparin gtt running as documented.- plan of care for the evening discussed. Using is IS up to 3000. SA w/ PACs on the monitor. HR in the 60s. Pt states he feels much better this evening compared to this
morning after the amio.
[2023-08-13] VITALS (9 sets, daily range): BP systolic 103–123; BP diastolic 70–91
[2023-08-13] MEDS: NITRO-BID 0.5 INCH TOPICAL ×3 (00:10→23:33)
[2023-08-13] MEDS: VALIUM 5 MG PO ×2 (00:12→22:37)
[2023-08-13 05:10] LABS: Hematocrit 37.6 % (39.0-52.0); Hemoglobin 13.7 g/dL (13.0-18.0); Mean Corp Hgb Conc. 36.4 g/dL (33.0-37.0); Mean Corpuscular Hgb 34.7 pg (27.0-31.0); Mean Corpuscular Volume 95.2 fL (80.0-94.0); Platelet Count 183 10^3/uL (130-400); Red Blood Cell Count 3.95 10^6/uL (4.70-6.10); Red Cell Dist. Width 11.9 % (11.5-14.5); White Blood Cell Count 7.7 10^3/uL (4.8-10.8)
[2023-08-13 05:22] LABS: APTT 87.8 Sec (23.4-35.0)
--- NOTE | 2023-08-13 08:01 | W.PN.UPDATE ---
Update Note
Progress Note Update
Patient seen and examined this AM. He reports feeling less CP after discontinuation of amiodarone. He continues on a heparin gtt. Preoperative testing almost complete. Type and screen ordered for the AM. Anesthesia consulted placed. Patient is
tentatively schedule for CABG with Dr. Brown on Tuesday 08/15.
--- NOTE | 2023-08-13 09:13 | W.PN.CARDCBS ---
Today's Communication / Plan
-
Continue IV heparin
CABG and maze on 08/15/2023
Impression / Plan
-
Family Physician:� Josefa Setwart
Substation Inspector: Dr. Coombs
Impression:
Presents 08/09/2023 with chest pain and dyspnea with minimal exertion
Unstable angina
Multivessel coronary artery disease on cardiac catheterization August 03 2023
EKG with sinus with 2:1 AVB
Paroxysmal atrial fibrillation/atrial tachycardia
Previously treated with propafenone
Status post PVI ablation 04/22/2021
Status post repeat PVI 12/10/2021
Cardioversion 03/2023
s/p repeat Ablation at [place] w/ Dr. Mijares 05/01/2023Implantable long-term playground monitor performed at [place]
Chronic anticoagulation with Eliquis
Hypertension
Hyperlipidemia
BPH
Left heart cath 08/03/2023 ([facility]):�LM: LI.� LAD: 99% ostial.� D1 99% mid. LCX: Moderately calcified.� 50% OM1.� RCA 90% mid
Echocardiogram 08/09/2023:�EF 55 to 60%.� Mild concentric LVH.� Mild MR, mild TR with PAP 30 to 35 mmHg
Plan:
Continue IV Heparin for both USA and for hx PAfib with washout of Eliquis.
For CABG on 08/15/2023
Was having episodes of PAT and atrial fibrillation but felt poorly on amiodarone which was discontinued
For likely MAZE at time of CABG
Discussed with CT surgery PA
Progress Note - Substation Inspector
Subjective
Date of Service: August 13, 2023
No chest pain or shortness of breath
Objective
Labs:
08/13/23 04:56
08/12/23 04:44
Labs
Hgb 13.7 g/dL (13.0-18.0) 08/13/23 04:56
Hct 37.6 % (39.0-52.0) L 08/13/23 04:56
Plt Count 183 10^3/uL (130-400) 08/13/23 04:56
APTT 87.8 Sec (23.4-35.0) H 08/13/23 04:56
Sodium 137 mmol/L (135-145) 08/12/23 04:44
Potassium 4.9 mmol/L (3.5-5.1) 08/12/23 04:44
BUN 18 mg/dl (9-20) 08/12/23 04:44
Creatinine 0.9 mg/dL (0.7-1.3) 08/12/23 04:44
Glucose 106 mg/dl (70-99) H 08/12/23 04:44
Troponins
08/12/23
13:43
Troponin I < 0.012
Vital Signs and I&O:
Vital Signs
Temp Pulse Resp BP Pulse Ox
98.2 F 69 16 121/91 96
08/13/23 07:16 08/13/23 04:50 08/13/23 07:16 08/13/23 04:50 08/13/23 07:16
Vital Signs
Temp Pulse Resp BP Pulse Ox
98.2 F 69 16 121/91 96
08/13/23 07:16 08/13/23 04:50 08/13/23 07:16 08/13/23 04:50 08/13/23 07:16
Intake & Output
08/11/23 08/12/23 08/13/23 08/14/23
06:59 06:59 06:59 06:59
Intake Total 138 / 138 110 / 110
Output Total 240 / 240
Balance -102 / -102 110 / 110
Physical Exam
Physical Exam
General: Well developed, well nourished in NAD.
Neck: Supple, no JVD, HJR, carotids +2 B/L, no bruits bilaterally.
Heart: Non displaced PMI, RRR, no murmurs, No S3, S4, no rubs.
Lungs: Clear to auscultation bilaterally, no wheeze, rhonchi, rubs bilaterally,
normal expiratory phase.
Extremities: No clubbing, cyanosis or edema bilaterally.
Neuro: Grossly nonfocal, awake, alert and oriented x3.
[2023-08-13] MEDS: DILANTIN 200 MG PO ×2 (09:31→20:16)
[2023-08-13] MEDS: LOW STRENGTH ASPIRIN 81 MG PO (09:32)
[2023-08-13] MEDS: TOPROL XL 100 MG PO (09:32)
[2023-08-13] MEDS: CRESTOR 20 MG PO (09:32)
[2023-08-13] MEDS: FLOMAX 0.400000000000000022 MG PO (11:54)
[2023-08-13] MEDS: HEPARIN 25000 UNITS/250 ML IV (11:54)
[2023-08-13] MEDS: NITRO-BID TOPICAL (17:00)
--- NOTE | 2023-08-13 17:02 | W.PN.HOSP.TC ---
Today's Communication/Plan
-
continue current Rx
await decision on Amiodarone, pt very hesitant
BMP, Mag in AM
Assessment / Plan
Assessment / Plan
Dyspnea related to severe CAD and unstable angina
paroxysmal atrial fibrillation
mild hyponatremia
Seizure disorder
Hx of R hip replacement
PLAN:
continue in IVU
CT surgery and cardiology following. Plan for CABG on Tuesday, 08/15
Started on IV heparin. Continue with nitro
Heart rates controlled; currently on metoprolol. Cardiology will be holding amiodarone due apparent intolerance.
Echo with preserved EF, mild TR/MR
Pt on my review of tele monitor appears to have increased percentage of sinus beats, but still with common fib beats
Holding Eliquis for CABG on Heparin
Cont home phenytoin
on 08/12 level was 17.5
Monitor sodium serially 137
DVT PPX - heparin
Anticipated Discharge: > 48 hours
Subjective/Interval History
-
Date of Service: August 13, 2023
Currently no chest pain
Objective Data
-
Labs:
Laboratory Results
08/13/23
04:56
WBC 7.7
Hgb 13.7
Hct 37.6 L
Plt Count 183
APTT 87.8 H
Vital Signs:
Vital Signs
Temp Pulse Resp BP Pulse Ox
97.7 F 70 18 103/70 97
08/13/23 15:41 08/13/23 16:49 08/13/23 15:41 08/13/23 17:00 08/13/23 16:59
I&O
08/12/23 08/13/23 08/14/23
06:59 06:59 06:59
Intake Total 110 / 110 320 / 320
Balance 110 / 110 320 / 320
Review of Systems
-
History Source: Patient
Constitutional: Denies Fever
EENT: Reports No Symptoms Reported
Respiratory: Denies Trouble Breathing
Cardiac: Denies Chest Pain
Abdomen/GI: Reports No Symptoms
Genitourinary: Reports No Symptoms
Physical Exam
-
General: Well Developed, Well Nourished and No Apparent Distress
HEENT: Normocephalic, Atraumatic and Moist Mucous Membranes
Respiratory: Clear to Auscultation; Negative Wheezes, Rales or Rhonchi
Cardiac: Regular Rhythm and S1/S2
GI: Soft, Nontender and Nondistended
Neuro: Awake, Alert and Oriented
[2023-08-13] MEDS: TOPROL XL 75 MG PO (18:07)
--- NOTE | 2023-08-13 18:34 | PTCARENOTE ---
At 17:00 pt reported feeling lightheaded with shallow breathing. He denied any chest discomfort. Pt had been using his IS but not aggressively. BP 103/79, resps 22 with room air pulse ox of 97%. Pt denied anxiety. He states 'this has been his
problem for some time and no one has figured it out'. Telemetry today has shown sinus rhythm with occasional PVC's, no runs of atrial fib although pt states he has 'seen them on his watch'. Nitropaste wiped off for now. Pt sipping on cherelle grey and
talking with his family, will monitor.
[2023-08-14] VITALS (8 sets, daily range): BP systolic 103–132; BP diastolic 69–91
[2023-08-14 05:57] LABS: APTT 74.9 Sec (23.4-35.0)
[2023-08-14 06:05] LABS: Blood Urea Nitrogen 12 mg/dl (9-20); Calcium 9.5 mg/dl (8.4-10.2); Carbon Dioxide 27 mmol/L (22-30); Chloride 102 mmol/L (98-107); Estimated Creatinine Clearance 72 ml/min; Glucose 98 mg/dl (70-99); Sodium 137 mmol/L (135-145); eGFR > 60.00
[2023-08-14] MEDS: CRESTOR 20 MG PO (08:08)
[2023-08-14] MEDS: NITRO-BID 0.5 INCH TOPICAL ×3 (08:08→22:30)
[2023-08-14] MEDS: TOPROL XL 100 MG PO (08:08)
[2023-08-14] MEDS: LOW STRENGTH ASPIRIN 81 MG PO (08:08)
[2023-08-14] MEDS: DILANTIN 200 MG PO ×2 (08:08→19:35)
--- NOTE | 2023-08-14 08:32 | W.PN.HOSP.TC ---
Addendum entered and electronically signed by Jos Rhoades MD 08/14/23 11:42:
call from nurse, pt feels that he needs an extra Valium now and is requesting. Order placed
Original Note:
Today's Communication/Plan
-
CABG tomorrow
Assessment / Plan
Assessment / Plan
Dyspnea related to severe CAD and unstable angina
paroxysmal atrial fibrillation
on tele monitor pt with normal sinus beats alternating with nonsinus supraventricular. Defer to cardio arrhythmia management
mild hyponatremia
resolved Na 137
Seizure disorder
had Sz in 20's, started on Dilantin and has not had any further episodes since, as long as he remains on Dilantin. Has not seen neurologist in 40 years
Dilantin 200 mg bid with level 17.5. Have recommended pt set up routine appt with neurology with hx of Sz on chronic AED
post op CABG recommend continued medication (IV or po) as last time he stopped taking, he did have a seizure
Hx of R hip replacement
Hyperlipidemia
was on Crestor 10 mg, recently increased to 20 mg
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
PLAN:
continue in IVU
CT surgery and cardiology following. Plan for CABG on Tuesday, 08/15
Started on IV heparin. Continue with nitro
Heart rates controlled; currently on metoprolol. Cardiology will be holding amiodarone due apparent intolerance.
Echo with preserved EF, mild TR/MR
Holding Eliquis for CABG on Heparin
Monitor sodium serially: Na 137 08/14
DVT PPX - heparin
Anticipated Discharge: > 48 hours
Subjective/Interval History
-
Date of Service: August 14, 2023
Awaiting planned CABG. Pt very concerned about possibly needing to go back on Amiodarone
Objective Data
-
Labs:
Laboratory Results
08/14/23
05:25
APTT 74.9 H
Sodium 137
Potassium 5.0
Chloride 102
Carbon Dioxide 27
BUN 12
Creatinine 0.8
Glucose 98
Calcium 9.5
Vital Signs:
Vital Signs
Temp Pulse Resp BP Pulse Ox
98.1 F 91 18 132/91 96
08/14/23 07:39 08/14/23 07:39 08/14/23 07:39 08/14/23 07:39 08/14/23 08:13
I&O
08/13/23 08/14/23 08/15/23
06:59 06:59 06:59
Intake Total 320 / 320
Balance 320 / 320
Review of Systems
-
History Source: Patient
Constitutional: Denies Fever
EENT: Reports No Symptoms Reported
Respiratory: Denies Trouble Breathing
Cardiac: Denies Chest Pain
Abdomen/GI: Reports No Symptoms
Genitourinary: Reports No Symptoms
Physical Exam
-
General: Well Developed, Well Nourished and No Apparent Distress
HEENT: Normocephalic, Atraumatic and Moist Mucous Membranes
Respiratory: Clear to Auscultation; Negative Wheezes, Rales or Rhonchi
Cardiac: S1/S2 and Irregular Rhythm
GI: Soft, Nontender and Nondistended
Musculoskeletal: No Clubbing, No Cyanosis and No Edema
Neuro: Awake, Alert and Oriented
Psych: Calm and Intact Judgement/Insight
[2023-08-14] MEDS: HEPARIN 25000 UNITS/250 ML IV (10:17)
--- NOTE | 2023-08-14 10:17 | W.PN.CARDCBS ---
Today's Communication / Plan
-
For CABG? Maze on 08/15
Continue IV heparin
Impression / Plan
-
Family Physician:� Josefa Stewart
Champagne Maker: Dr. Coombs
Impression:
Presents 08/09/2023 with chest pain and dyspnea with minimal exertion
Unstable angina
Multivessel coronary artery disease on cardiac catheterization August 03 2023
EKG with sinus with 2:1 AVB
Paroxysmal atrial fibrillation/atrial tachycardia
Previously treated with propafenone
Status post PVI ablation 04/22/2021
Status post repeat PVI 12/10/2021
Cardioversion 03/2023
s/p repeat Ablation at [place] w/ Dr. Mijares 05/01/2023Implantable long-term superintendent automotive performed at [place]
Chronic anticoagulation with Eliquis
Hypertension
Hyperlipidemia
BPH
Left heart cath 08/03/2023 ([facility]):�LM: LI.� LAD: 99% ostial.� D1 99% mid. LCX: Moderately calcified.� 50% OM1.� RCA 90% mid
Echocardiogram 08/09/2023:�EF 55 to 60%.� Mild concentric LVH.� Mild MR, mild TR with PAP 30 to 35 mmHg
Plan:
He is for CABG on 08/15/2019
Continue IV heparin for unstable angina and also he is off of Eliquis
No further episodes of PAT despite stopping amiodarone which he felt he poorly tolerated but unclear if he was intolerant of medication
For likely MAZE at time of CABG
Progress Note - Champagne Maker
Subjective
Date of Service: August 14, 2023
No complaints
Objective
Labs:
08/13/23 04:56
08/14/23 05:25
Labs
Hgb 13.7 g/dL (13.0-18.0) 08/13/23 04:56
Hct 37.6 % (39.0-52.0) L 08/13/23 04:56
Plt Count 183 10^3/uL (130-400) 08/13/23 04:56
APTT 74.9 Sec (23.4-35.0) H 08/14/23 05:25
Sodium 137 mmol/L (135-145) 08/14/23 05:25
Potassium 5.0 mmol/L (3.5-5.1) 08/14/23 05:25
BUN 12 mg/dl (9-20) 08/14/23 05:25
Creatinine 0.8 mg/dL (0.7-1.3) 08/14/23 05:25
Glucose 98 mg/dl (70-99) 08/14/23 05:25
Troponins
08/12/23
13:43
Troponin I < 0.012
Vital Signs and I&O:
Vital Signs
Temp Pulse Resp BP Pulse Ox
98.1 F 91 18 132/91 96
08/14/23 07:39 08/14/23 07:39 08/14/23 07:39 08/14/23 07:39 08/14/23 08:13
Vital Signs
Temp Pulse Resp BP Pulse Ox
98.1 F 91 18 132/91 96
08/14/23 07:39 08/14/23 07:39 08/14/23 07:39 08/14/23 07:39 08/14/23 08:13
Intake & Output
08/12/23 08/13/23 08/14/23 08/15/23
06:59 06:59 06:59 06:59
Intake Total 110 / 110 320 / 320
Balance 110 / 110 320 / 320
Physical Exam
Physical Exam
General: Well developed, well nourished in NAD.
Neck: Supple, no JVD, HJR, carotids +2 B/L, no bruits bilaterally.
Heart: Non displaced PMI, RRR, no murmurs, No S3, S4, no rubs.
Lungs: Clear to auscultation bilaterally, no wheeze, rhonchi, rubs bilaterally,
normal expiratory phase.
Extremities: No clubbing, cyanosis or edema bilaterally.
Neuro: Grossly nonfocal, awake, alert and oriented x3.
[2023-08-14] MEDS: TYLENOL 650 MG PO (11:16)
[2023-08-14] MEDS: FLOMAX 0.400000000000000022 MG PO (11:16)
[2023-08-14] MEDS: VALIUM 5 MG PO ×2 (11:46→22:31)
[2023-08-14] MEDS: TOPROL XL 75 MG PO (17:21)
--- NOTE | 2023-08-14 17:28 | PTCARENOTE ---
Pt had one his 'episodes' at 11:15 with dizziness and shallow breathing and also complained of tension in his neck and head. aware, valium and tylenol given to pt who slept and woke up feeling well. Telemetry shows sinus rhythm with
frequent PAC's and rare short episode of atrial fib at a rate of 140 when he was up in the bathroom. Plan for CVOR prep tonight, NPO after midnight.
[2023-08-15] VITALS (19 sets, daily range): BP systolic 82–144; BP diastolic 28–93; BMI 26.4
[2023-08-15 05:12] LABS: Hematocrit 40.2 % (39.0-52.0); Hemoglobin 14.1 g/dL (13.0-18.0); Mean Corp Hgb Conc. 35.1 g/dL (33.0-37.0); Mean Corpuscular Hgb 33.1 pg (27.0-31.0); Mean Corpuscular Volume 94.4 fL (80.0-94.0); Platelet Count 182 10^3/uL (130-400); Red Blood Cell Count 4.26 10^6/uL (4.70-6.10); White Blood Cell Count 7.3 10^3/uL (4.8-10.8)
[2023-08-15 05:28] LABS: APTT 79.2 Sec (23.4-35.0)
[2023-08-15 05:44] LABS: Blood Urea Nitrogen 13 mg/dl (9-20); Calcium 9.7 mg/dl (8.4-10.2); Carbon Dioxide 30 mmol/L (22-30); Chloride 100 mmol/L (98-107); Estimated Creatinine Clearance 72 ml/min; Glucose 105 mg/dl (70-99); Potassium 4.7 mmol/L (3.5-5.1); Sodium 137 mmol/L (135-145); eGFR > 60.00
[2023-08-15] MEDS: LOPRESSOR 25 MG PO (05:58)
[2023-08-15] MEDS: BACTROBAN 2% OINTMENT 1 APPLIC NASAL ×2 (05:58→20:31)
[2023-08-15] MEDS: PROTONIX 40 MG PO (05:59)
[2023-08-15] MEDS: MAGNESIUM OXIDE 500 MG PO (05:59)
--- NOTE | 2023-08-15 06:05 | PTCARENOTE ---
No complaints of CP/dizziness or SOB this shift. NSR-ST with PAC's on the monitor; pt. slept well. Pt. clipped and showered x 2 with chlorhexidine soap both last night and this morning; beds changed out and belongings moved to room 2263, pre-op
medications given. Awaiting CVOR.
--- NOTE | 2023-08-15 06:43 | PTCARENOTE ---
Heparin stopped; pt. taken to CVOR at 0635.
[2023-08-15 07:05] LABS: ACT+ - POC 90 Seconds (82-134)
[2023-08-15 07:11] LABS: B.E. - POC -0.2 mmol/L; Glucose - POC 97 mg/dl (65-99); HCO3 - POC 24 mmol/L (21-29); Hematocrit - POC 40 % PCV (42-52); Hemodilution- POC Yes; Hemoglobin Calculated - POC 13.6; Ionized Calcium - POC 1.23 mmol/L (1.12-1.27); PCO2 - POC 39 mmHg (35-45); PO2 - POC 497 mmHg (80-100); Potassium - POC 3.8 mmol/L (3.6-5.0); Sodium - POC 140 mmol/L (135-145); pH - POC 7.41 (7.35-7.45)
[2023-08-15 07:25] LABS: Urine Albumin Negative (Neg - Trace); Urine Bilirubin Negative (Negative); Urine Character Clear (Clear); Urine Color Yellow; Urine Glucose Negative (Negative); Urine Ketone Negative (Negative); Urine Leukocyte Negative (Negative); Urine Nitrite Negative (Negative); Urine Occult Blood Negative (Negative); Urine Specific Gravity 1.015 (<1.030); Urine Urobilinogen Negative (Neg - 1+); Urine pH 6.5 (5.0-9.0)
[2023-08-15 09:26] LABS: ACT+ - POC 557 Seconds (82-134)
[2023-08-15 10:05] LABS: ACT+ - POC 528 Seconds (82-134)
[2023-08-15 10:34] LABS: B.E. - POC 1.7 mmol/L; Glucose - POC 169 mg/dl (65-99); HCO3 - POC 26 mmol/L (21-29); Hematocrit - POC 28 % PCV (42-52); Hemodilution- POC Yes; Hemoglobin Calculated - POC 9.5; Ionized Calcium - POC 1.03 mmol/L (1.12-1.27); O2 Saturation %Calculated-POC 99.9 5 (92-96); PCO2 - POC 40 mmHg (35-45); PO2 - POC 299 mmHg (80-100); Potassium - POC 5.7 mmol/L (3.6-5.0); Sodium - POC 136 mmol/L (135-145); pH - POC 7.43 (7.35-7.45)
[2023-08-15 10:38] LABS: ACT+ - POC 570 Seconds (82-134)
[2023-08-15 11:05] LABS: B.E. - POC 0.6 mmol/L; Glucose - POC 168 mg/dl (65-99); HCO3 - POC 25 mmol/L (21-29); Hematocrit - POC 30 % PCV (42-52); Hemodilution- POC Yes; Hemoglobin Calculated - POC 10.1; Ionized Calcium - POC 1.11 mmol/L (1.12-1.27); O2 Saturation %Calculated-POC 99.6 5 (92-96); PCO2 - POC 40 mmHg (35-45); PO2 - POC 178 mmHg (80-100); Potassium - POC 4.9 mmol/L (3.6-5.0); Sodium - POC 138 mmol/L (135-145); pH - POC 7.41 (7.35-7.45)
[2023-08-15 11:10] LABS: ACT+ - POC 529 Seconds (82-134)
[2023-08-15 11:37] LABS: B.E. - POC -0.9 mmol/L; Glucose - POC 137 mg/dl (65-99); HCO3 - POC 24 mmol/L (21-29); Hematocrit - POC 30 % PCV (42-52); Hemodilution- POC Yes; Hemoglobin Calculated - POC 10.3; Ionized Calcium - POC 1.16 mmol/L (1.12-1.27); O2 Saturation %Calculated-POC 99.9 5 (92-96); PCO2 - POC 42 mmHg (35-45); PO2 - POC 300 mmHg (80-100); Potassium - POC 4.7 mmol/L (3.6-5.0); Sodium - POC 140 mmol/L (135-145); pH - POC 7.37 (7.35-7.45)
[2023-08-15 11:39] LABS: ACT+ - POC 511 Seconds (82-134)
[2023-08-15 12:07] LABS: B.E. - POC -0.2 mmol/L; Glucose - POC 116 mg/dl (65-99); HCO3 - POC 24 mmol/L (21-29); Hematocrit - POC 30 % PCV (42-52); Hemodilution- POC Yes; Hemoglobin Calculated - POC 10.1; Ionized Calcium - POC 1.14 mmol/L (1.12-1.27); PCO2 - POC 38 mmHg (35-45); PO2 - POC 429 mmHg (80-100); Potassium - POC 4.4 mmol/L (3.6-5.0); Sodium - POC 140 mmol/L (135-145); pH - POC 7.41 (7.35-7.45)
[2023-08-15 12:09] LABS: ACT+ - POC 442 Seconds (82-134)
[2023-08-15 12:42] LABS: ACT+ - POC 101 Seconds (82-134)
[2023-08-15 12:44] LABS: B.E. - POC -1.2 mmol/L; Glucose - POC 115 mg/dl (65-99); HCO3 - POC 23 mmol/L (21-29); Hematocrit - POC 28 % PCV (42-52); Hemodilution- POC Yes; Hemoglobin Calculated - POC 9.7; Ionized Calcium - POC 1.67 mmol/L (1.12-1.27); PCO2 - POC 36 mmHg (35-45); PO2 - POC 129 mmHg (80-100); Potassium - POC 3.6 mmol/L (3.6-5.0); Sodium - POC 141 mmol/L (135-145); pH - POC 7.41 (7.35-7.45)
[2023-08-15 12:58] LABS: ACT+ - POC 153 Seconds (82-134)
[2023-08-15 13:05] LABS: ACT+ - POC 222 Seconds (82-134)
[2023-08-15 13:12] LABS: ACT+ - POC 162 Seconds (82-134)
[2023-08-15 13:15] LABS: ACT+ - POC 131 Seconds (82-134)
[2023-08-15 13:25] LABS: ACT+ - POC 479 Seconds (82-134); ACT+ - POC 502 Seconds (82-134)
--- NOTE | 2023-08-15 13:41 | W.PN.UPDATE ---
Update Note
Progress Note Update
Patient for CABG and maze today. Patient will be under CT surgery service. Medicine will sign off. Please call us with any questions
[2023-08-15 13:51] LABS: ACT+ - POC 96 Seconds (82-134)
[2023-08-15 13:53] LABS: B.E. - POC -3.3 mmol/L; Glucose - POC 148 mg/dl (65-99); HCO3 - POC 21 mmol/L (21-29); Hematocrit - POC 27 % PCV (42-52); Hemodilution- POC Yes; Hemoglobin Calculated - POC 9.1; Ionized Calcium - POC 1.29 mmol/L (1.12-1.27); O2 Saturation %Calculated-POC 99.6 5 (92-96); PCO2 - POC 36 mmHg (35-45); PO2 - POC 180 mmHg (80-100); Potassium - POC 3.7 mmol/L (3.6-5.0); Sodium - POC 141 mmol/L (135-145); pH - POC 7.38 (7.35-7.45)
--- NOTE | 2023-08-15 14:08 | W.CVOR.SURPR ---
CVOR Surgeon Immed Pre Op
-
I have examined this patient prior to performance of the scheduled procedure.
The patient's condition is unchanged from the time of the dictated/written History and
Physical and the patient is able to undergo the scheduled procedure.
--- NOTE | 2023-08-15 14:08 | W.IMMPOSTOP ---
Addendum entered and electronically signed by Omega Brown MD 08/15/23 15:28:
Dictated: [id number]
Original Note:
Surgical Immed Post Op Note
-
CARDIAC SURGERY OPERATIVE NOTE:
Preoperative Dx:
MVCAD w/ unstable angina
PAF
Postoperative Dx:
Same
Procedures:
1) Median sternotomy
2) Takedown of ANTONY
3) Endoscopic evaluation of RLE GSV (abandoned secondary to poor quality)
4) Endoscopic harvest/prep of RLE GSV
5) Encompass MAZE procedure
6) ELAA
7) CABG x 4 (ANTONY to LAD, GSV to D1, GSV to OM2, GSV to PDA)
8) Takedown of proximal to OM2 w/ frrn-xq-[id number] off GSV to D1
Surgeon:
Omega Brown M.D.
Assistants:
Yuliya Lofton P.A.-C.; first aid trainer throughout, endoscopic GSV harvest/prep
Janette Washington.-CShivani; closure of B/L LE GSV incisions, closure of sternotomy ([id number])
Anesthesia:
Denia Peña C.R.N.A. and Alex Gaviria M.D.
Perfusion:
Annelise MarcCShivaniPShivani; XC: 69min, CPB: 134min
Findings:
ANTONY was healthy appearing conduit w/ slightly small ELD of 2.0mm, brisk flow
LLE GSV was healthy appearing conduit w/ ELD ranging from 2.5-3.5mm
LAD was visible on epicardial surface, scattered calcifications, ELD 2.5mm
D1 was visible on epicardial surface, scattered calcifications, ELD 2.25mm
OM2 was visible on epicardial surface, scattered calcifications, ELD 1.65mm (anastomosis performed over 1.00mm shunt)
PDA was visible on epicardial surface, scattered calcifications, ELD 1.50mm (anastomosis performed over 1.00mm shunt)
Upon release of pericardial cradle, the ascending aorta displaced to the right, which placed a some tension on graft to OM2 w/ flattening of proximal anastomosis. I was clearly not satisfied with this change, re-administered heparin, took down
proximal anastomosis, and performed a ilmb-gy-tkls anastomosis off the graft to D1.
There was excellent flow in all grafts on intraoperative U/S assessment
Post AGUSTIN: Normal LV function at 55-60%, Normal RV function, mild TR, dsnjbeb-hn-polb MR, rxsswmf-ft-ifsd AI - unchanged from preop
Implants:
CT x 4 (B/L pleural, inferior mediastinal, superior mediastinal)
Epicardial V-wires x 2
AtriClip 45mm LOT [id number]
Sternal wires x 10
Complications:
No significant
Transfusions:
None
Condition:
80 V-paced (junctional in 40s under), 99/63. 34/23. CVP 19. 99%
GTTS: levophed 8, precedex 0.5, insulin 0.5
--- NOTE | 2023-08-15 14:14 | CON.INTV ---
Consultation
Consultation Request
Date/Time Consultation Requested: 08-15-23
Date/Time Consultation Performed: 08-15-23
Requesting Provider: Dr Brown
Performing Provider: Dr Melchor
Reason for Consultation: s/p CABG MV
Medical History
-
Chief Complaint: MV post CABG
History of Present Illness:
Mr Reyes Stewart is a 73/M adm 08-09 for worsening dyspnea on CTSx outpatient visit where he was referred for evaluation for CABG (C at [facility] 08-03 with severe CAD).
At ER developed recurrent AFib. Seen by Cards and CTSx, needed to start IV heparin for USA and PAFib (was on apixaban as outpatient).
Stabilized for surgery, scheduled for CABG and MAZE procedure
Seen at CVICU post surgery, sedated, on SIMV, in no distress
Reportedly no h/o smoking, not on BDs
Past Medical History
Past Medical History: Other (see A&P for PMH/PSH)
Social History
Tobacco: Non-smoker
Alcohol: None
Drug: None
Personal:
Living: With Family
Allergies / Home Medications
Allergies
Allergy/AdvReac Type Severity Reaction Status Date / Time
No Known Allergies Allergy Verified 12/10/21 09:01
Home Medications
Medication Instructions Recorded Confirmed Last Taken Type
apixaban 5 mg tablet (Eliquis) 5 mg PO BID Blood Clot 04/03/21 08/09/23 08/09/23 History
Prevention/Tx
metoprolol succinate 50 mg 100 mg PO DAILY Heart Disease/AFib 04/03/21 08/09/23 08/09/23 History
tablet,extended release 24 hr
(Toprol XL)
phenytoin sodium extended 100 mg 200 mg PO BID Seizures 04/03/21 08/09/23 08/09/23 History
capsule
Calm Supplement 1 dose PO DAILY Supplement 08/09/23 08/09/23 08/09/23 History
Trace Minerals Supplement 1 cap PO NOON Supplement 08/09/23 08/09/23 08/08/23 History
diazepam 5 mg tablet 5 mg PO HS PRN muscle spasms/sleep 08/09/23 08/09/23 08/08/23 History
metoprolol succinate 50 mg 75 mg PO QPM Heart Disease/AFib 08/09/23 08/09/23 08/08/23 History
tablet,extended release 24 hr
metoprolol tartrate 25 mg tablet 25 mg PO DAILY PRN rapid heart 08/09/23 08/09/23 Unknown History
rates
rosuvastatin 20 mg tablet 20 mg PO DAILY High Cholesterol 08/09/23 08/09/23 08/09/23 History
tamsulosin 0.4 mg capsule 0.4 mg PO NOON Urinary Issue 08/09/23 08/09/23 08/08/23 History
Review of Systems
-
Unable to Obtain full review of systems at this time due to: Patient Intubation
Vitals / Labs / Diagnostic Testing
Vital Signs
Temp Pulse Resp BP Pulse Ox
97.8 F 93 16 144/90 97
08/15/23 04:50 08/15/23 05:58 08/15/23 04:50 08/15/23 05:58 08/15/23 04:50
Laboratory Results
08/15/23
04:58
APTT 79.2 H
Diagnostic Testing:
Physical Exam
-
HEENT: Normocephalic and Moist Mucous Membranes
Cardiovascular: Regular Rhythm and Peripheral Edema (n)
Respiratory: Clear and Accessory Resp Muscle Use
GI: Soft and Non Distended
Neurology: Other (sedated)
Skin: Dry
General: Respiratory Distress (n)
Assessment
-
Assessment:
Mr Reyes Stewart is a 73/M adm 08-09 for worsening dyspnea on CTSx outpatient visit where he was referred for evaluation for CABG ([facility] at [facility] 08-03 with severe CAD). At ER developed recurrent AFib. Seen by Cards and CTSx, needed to start IV heparin
for USA and PAFib (was on apixaban as outpatient). Stabilized for surgery, scheduled for CABG and MAZE procedure
Impression:
USA, multivessel CAD
S/p CABGx4, MAZE procedure 08-15-23
Conditions BUSINESS CONTROLLER:
Multivessel CAD
PAFib/AT
Implantable long-term golf course laborer
HTN
HLD
BPH
Sz disorder, on phenytoin
Nonsmoker
Plan:
Ventilator settings reviewed
SIMV: [id number]
FiO2 will be weaned
Minute ventilation will be adjusted
Arterial blood gases will be monitored
Spontaneous breathing trial will be attempted with hopeful extubation after anesthesia/sedation wear off
Pulmonary artery catheter parameters will be followed
Pressors/antihypertensive/inotropes/diuretics will be provided as needed
Monitor chest tube output
Monitor hemoglobin
Monitor platelet count and coags
Transfuse blood product if needed
CT surgery following chest tubes
Monitor blood sugar
Insulin drip per protocol
Aspiration precautions
VAP prevention protocol
DVT prophylaxis
Early nutrition
Early mobilization
Critical care time: 35 min
Diagnostic tests:
CXR 08-15-22: postop film, ETT, RIJ SGC, bilateral chest tubes, small R PF
CXR 08-09-23: no previous films for comparison. No infiltrates. Implanted golf course laborer overlying the cardiac silhouette
TTE 08-09-23: LVEF 55-605, mild LVH, mild MR. Normal RV
--- NOTE | 2023-08-15 14:41 | W.PN.UPDATE ---
Update Note
Progress Note Update
Crystalloid:� 1300
U.O.:� 750
UF:� 1000
Blood:� No blood
Wires:� V wires
Inotropes:� None
Pressors:� Levophed
Sedatives:� Precedex
�
NEURO: sedated on Precedex, pupils +2mm B/L
RESP: #8OT @24cm>14/500/100/5 Lungs clear B/L. 2 mediastinal (20cc on arrival) and R/L pleural (10cc on arrival) chest tubes to -20cm suction. Sanguineous drainage
CV: RRR +S1, S2, no S3, no�rub, no murmur. Dermabond to median sternotomy. RIJ w/[place] locked @ 44cm. PA 35/17; CVP 9;
ABD: round, soft, no BS
EXT: no edema, +2/4 DP pulses B/L, no femoral bruit, XXLE JAMES wrap intact; XX radial A-line intact
: Keller with clear yellow urine
�
A/P: POD #0 s/p CABG x4 López-LAD, SVG to D1 Y graft to OM2, SVG-PDA, MAZEm and RANDA clip
AGUSTIN: EF�55-60%
- Wean levophed with goal MAPs >65
- trend CVP with goal CVP 8-10; will give albumin as needed
- Obtain post-op EKG
- Intra-op CI was 1.4; will obtain MVO2 and trend as needed
>>monitor UOP
- Will start ASA 6hrs post procedure if no bleeding
- Will start plavix on POD#1 if no bleeding
- Cardiology consulted
�
# acute surgical blood loss anemia-expected
- trend CBC
�
#paroxysmal atrial fibrillation
-hx of amio intolerance cause GI upset previously
- will be on prophylatic dosing post-op
- will continue to monitor for symptoms
#Ventilator dependent respiratory failure- Expected
- wean vent support and sedation with goal to extubate
- goal O2 sats >90%
-Manual Control Auger Press Operator consulted
# Hyperglycemia (expected)
- insulin infusion x 24h
�
# Hyperlipidemia
- resume�crestor
[2023-08-15] MEDS: VERSED 0.5 MG IV ×2 (14:48→15:24)
[2023-08-15 14:50] LABS: Glucose - Point of Care 143 mg/dl (70-99)
[2023-08-15 14:57] LABS: B.E. -4.4 mmol/L; HCO3 22.1 mmol/L (21-28); Ionized Calcium 1.31 mMOL/L (1.15-1.33); O2 Saturation % 99.3 % (94-98); PCO2 46 mmHg (35-48); PO2 219 mmHg (83-108); Potassium 4.2 mMOL/L (3.5-5.1); Sodium 138 mMOL/L (136-145); pH 7.29 (7.35-7.45)
[2023-08-15 14:59] LABS: Mixed Venous O2 Saturation 52.8 %
[2023-08-15 15:00] LABS: Hematocrit 25.7 % (39.0-52.0); Hemoglobin 9.4 g/dL (13.0-18.0); Platelet Count 130 10^3/uL (130-400)
[2023-08-15] MEDS: ALBUMIN 5% 250 IV (15:00)
[2023-08-15 15:07] LABS: APTT 37.3 Sec (23.4-35.0); PT 21.2 Sec (11.4-14.6)
[2023-08-15 15:17] LABS: Blood Urea Nitrogen 13 mg/dl (9-20); Estimated Creatinine Clearance 58 ml/min; Glucose 132 mg/dl (70-99); Magnesium 2.6 mg/dl (1.6-2.3)
[2023-08-15] MEDS: PEPCID IV (15:25)
[2023-08-15] MEDS: NSS 500 IV (15:25)
[2023-08-15] MEDS: TYLENOL PO ×2 (15:25→17:05)
[2023-08-15] MEDS: CRESTOR PO (15:26)
[2023-08-15] MEDS: NSS (PRESERVATIVE FREE) IV (15:26)
[2023-08-15] MEDS: STERILE WATER FOR INJECTION 16 ML IV ×2 (15:26→15:27)
[2023-08-15] MEDS: ZINACEF 1500 MG IV ×2 (15:26)
[2023-08-15] MEDS: DILANTIN PO (15:26)
[2023-08-15] MEDS: PACERONE PO ×2 (15:27→23:05)
[2023-08-15] MEDS: NITRO-BID TOPICAL (15:28)
[2023-08-15] MEDS: LOW STRENGTH ASPIRIN PO (15:28)
[2023-08-15] MEDS: FLOMAX PO (15:30)
[2023-08-15] MEDS: TOPROL XL PO (15:30)
--- NOTE | 2023-08-15 15:42 | PTCARENOTE ---
Received pt from OR into 2262, originally V paced with epicardial pacing wire- upon arrival to ICU pacer settings decreased- patient w sinus rhythm HR 80's, left radial shivani leveled and zeroed- BP originally fluctuating from SBP 60-80,
Kevin at bedside- total 500ml albumin administered, 500mg Calcium and epi infusion initiated as instructed. Levophed titrated to support SBP above 90. Right IJ cordis w swan floated to 43. CVP 11, PAP 33/18, CO 5.43 CI 2.96. #8 ETT/ 24cm at the
right lip. CT x4 w red drainage, wells catheter draining yellow. Patient does wake spontaneously, follows simple commands and GALE, right pupil regularity irregular, left pupil +2 equally reactive to light.
DRIPS: Epinephrine 2mcg/min
Levophed 6mcg/min
Insulin titrated per glycemic protocol
--- NOTE | 2023-08-15 15:44 | W.PN.CARDCBS ---
Addendum entered and electronically signed by Gabino Lopez DO 08/15/23 17:02:
I saw and examined the patient.
The Slurry Tank Tender's note was reviewed and I agree with the note.
Comment:
Plan:
Cont post op care
Wean vent as able
Wean pressors as bp will allow
EKG without acute changes.
Remains in sinus
Compensated cv status.
Reviewed with nursing
Original Note:
Today's Communication / Plan
-
Continue post op care
Follow hemoglobin
Impression / Plan
-
Family Physician:� Josefa Stewart
Developmental Services Worker: Dr. Coombs
Impression:
Presented w/ chest pain and dyspnea with minimal exertion
Unstable angina
Multivessel coronary artery disease on cardiac catheterization 08/03/2023
EKG with sinus with 2:1 AVB
Paroxysmal atrial fibrillation/atrial tachycardia
Previously treated with propafenone
Status post PVI ablation 04/22/2021
Status post repeat PVI 12/10/2021
Cardioversion 03/2023
s/p repeat Ablation at [place] w/ Dr. Mijares 05/01/2023
Implantable long-term earth burner performed at [place]
Chronic anticoagulation with Eliquis
Hypertension
Hyperlipidemia
BPH
Left heart cath 08/03/2023 ([facility]):�LM: LI.� LAD: 99% ostial.� D1 99% mid. LCX: Moderately calcified.� 50% OM1.� RCA 90% mid
Echocardiogram 08/09/2023:�EF 55 to 60%.� Mild concentric LVH.� Mild MR, mild TR with PAP 30 to 35 mmHg
Plan:
-Presented with chest pain 08/09/2023. He had MV CAD by cath at [facility] 08/03/2023.
-Now he is s/p CABG x 4 (MACDONALD-LAD, SVG-D1 Y graft to OM2, SVG-PDA) MAZE, and RANDA clip 08/15/2023.
-Seen post op. Remains intubated and sedated, although is waking up and following commands per RN.
-On levo @6, epi @ 2.
-Post OP EKG stable. In SR with 1st degree AV block.
-Hgb 9.4, continue to follow closely. No blood products given intra-op.
-Continue post op care
Progress Note - Developmental Services Worker
Subjective
Date of Service: August 15, 2023
Intubated, sedated.
Objective
Labs:
08/15/23 14:45
Labs
Hgb 9.4 g/dL (13.0-18.0) L D 08/15/23 14:45
Hct 25.7 % (39.0-52.0) L 08/15/23 14:45
Plt Count 130 10^3/uL (130-400) D 08/15/23 14:45
PT 21.2 Sec (11.4-14.6) H 08/15/23 14:45
INR 1.80 08/15/23 14:45
APTT 37.3 Sec (23.4-35.0) H 08/15/23 14:45
Sodium 137 mmol/L (135-145) 08/15/23 04:58
Potassium 4.7 mmol/L (3.5-5.1) 08/15/23 04:58
BUN 13 mg/dl (9-20) 08/15/23 14:45
Creatinine 1.0 mg/dL (0.7-1.3) 08/15/23 14:45
Glucose 132 mg/dl (70-99) H 08/15/23 14:45
Vital Signs and I&O:
Vital Signs
Temp Pulse Resp BP Pulse Ox
98.4 F 82 21 144/90 100
08/15/23 15:00 08/15/23 15:30 08/15/23 15:30 08/15/23 05:58 08/15/23 15:37
Vital Signs
Temp Pulse Resp BP Pulse Ox
98.4 F 82 21 144/90 100
08/15/23 15:00 08/15/23 15:30 08/15/23 15:30 08/15/23 05:58 08/15/23 15:37
Intake & Output
08/13/23 08/14/23 08/15/23 08/16/23
06:59 06:59 06:59 06:59
Intake Total 320 / 320 400 / 400 63.5 / 63.5
Output Total 220 / 220
Balance 320 / 320 400 / 400 -156.5 / -156.5
Physical Exam
Physical Exam
GEN: Intubated and sedated
HEENT: supple, anicteric, mmm
LUNGS: CTA b/l, no wheezes/rales
CV: Reg, S1/S2, no murmur
ABD: soft, BS+, NT/ND
EXT: No clubbing, cyanosis, or edema
NEURO: Gross non-focal
SKIN: Warm, dry, no rash
--- NOTE | 2023-08-15 16:00 | PTCARENOTE ---
pt awake and following commands appropriately. Placed on CPAP wean by RT.
[2023-08-15 16:02] LABS: Glucose - Point of Care 124 mg/dl (70-99)
[2023-08-15] MEDS: SODIUM BICARBONATE 100 MEQ IV (16:15)
[2023-08-15 16:50] LABS: B.E. 0.1 mmol/L; HCO3 24.7 mmol/L (21-28); Ionized Calcium 1.27 mMOL/L (1.15-1.33); O2 Saturation % 99.4 % (94-98); PCO2 39 mmHg (35-48); PO2 123 mmHg (83-108); Potassium 4.1 mMOL/L (3.5-5.1); Sodium 140 mMOL/L (136-145); pH 7.41 (7.35-7.45)
--- NOTE | 2023-08-15 16:50 | PTCARENOTE ---
Epi decreased to 1mcg per Dr. Brown.
--- NOTE | 2023-08-15 17:05 | PTCARENOTE ---
pt extubated to 6L NC. Pox 97-99%.
[2023-08-15 17:11] LABS: Glucose - Point of Care 115 mg/dl (70-99)
[2023-08-15] MEDS: OFIRMEV 100 IV (17:20)
--- NOTE | 2023-08-15 17:27 | PTCARENOTE ---
Core temp 101.3. CVNP made aware. Ofirmev administered as ordered.
[2023-08-15] MEDS: LEVOPHED 250 IV (18:26)
[2023-08-15 18:31] LABS: Glucose - Point of Care 100 mg/dl (70-99)
[2023-08-15] MEDS: LOW STRENGTH ASPIRIN 81 MG PO (18:36)
[2023-08-15 18:42] LABS: Hematocrit 22.3 % (39.0-52.0); Hemoglobin 8.1 g/dL (13.0-18.0); Platelet Count 109 10^3/uL (130-400)
--- NOTE | 2023-08-15 19:30 | PTCARENOTE ---
Received pt from RN. Pt easily arousable, extubated on 4L NC. VSS on levophed and epi gtt (refer to med titration worklist). Pt on insulin gtt per glycemic protocol. Lung sounds are diminished. Heart sounds are regular with a rub. NSR. Temporary
pacer box in place with rate set to 40BPM. CTs x4 with red drainage. RIJ cordis intact. Ball[place] locked @ 43cm. Hemodynamics stable (refer to vital signs work list.) Bowel sound hypoactive, patient tolerating ice chips. Keller intact with clear yellow
urine. Aquacel dressing c/d/i to sternum. BLE bhavna wraps c/d/i.
[2023-08-15 20:04] LABS: Glucose - Point of Care 79 mg/dl (70-99)
[2023-08-15] MEDS: SENOKOT-S 1 TABLET PO (20:31)
[2023-08-15] MEDS: DILANTIN 200 MG PO (20:31)
[2023-08-15] MEDS: PEPCID 20 MG IV (20:32)
[2023-08-15] MEDS: TYLENOL 650 MG PO (20:32)
[2023-08-15] MEDS: ZINACEF 750 MG IV (20:32)
[2023-08-15] MEDS: STERILE WATER FOR INJECTION 8.30000000000000071 ML IV (20:33)
[2023-08-15] MEDS: NSS (PRESERVATIVE FREE) 8 ML IV (20:33)
[2023-08-15 21:03] LABS: Glucose - Point of Care 102 mg/dl (70-99)
[2023-08-15 22:02] LABS: Glucose - Point of Care 178 mg/dl (70-99)
[2023-08-15] MEDS: CALCIUM CHLORIDE 10% SYRINGE 60 MG IV (22:34)
[2023-08-15 23:09] LABS: Glucose - Point of Care 206 mg/dl (70-99)
[2023-08-16] VITALS (84 sets, daily range): BP systolic 56–142; BP diastolic 28–95; PULSE 83; O2SAT 94–97; BMI 28.1
--- NOTE | 2023-08-16 | PTCARENOTE ---
NSR. VSS/Hemodynamics stable on 2L NC. 1 unit PRBCs given. CaCl administered. Levo gtt weaned per order, epi gtt unchanged. Insulin gtt per glycemic protocol. Assessment unchanged. CHG bath. Turned and repositioned. CTs output stable.
[2023-08-16 00:15] LABS: Glucose - Point of Care 172 mg/dl (70-99)
[2023-08-16] MEDS: TYLENOL PO ×3 (00:36→17:07)
[2023-08-16] MEDS: OFIRMEV 100 IV (00:36)
[2023-08-16] MEDS: ROXICODONE 5 MG PO ×2 (01:51→08:09)
[2023-08-16] MEDS: SKELAXIN 800 MG PO ×2 (01:52→10:10)
[2023-08-16 02:01] LABS: Glucose - Point of Care 142 mg/dl (70-99)
--- NOTE | 2023-08-16 03:00 | PTCARENOTE ---
NSR. Epi gtt titrated off. Pt still on levo gtt and insulin gtt per glycemic protocol. Pt with c/o of pain - oxycodone and skelaxin administered. Pt now resting. Assessment unchanged. CTs with minimal output. Keller adequate output - clear yellow.
--- NOTE | 2023-08-16 03:40 | W.PN.CT ---
Addendum entered and electronically signed by Omega Brown MD 08/16/23 07:37:
I saw and examined the patient.
The PA's note was reviewed and I agree with the note.
Comment:
POD#1 s/p [facility] MAZE, ELAA, CABG x 4
No major overnight events. Transfused 1U PRBC overnight. Tm 101.7. 71 sinus. 105/58. 99% 2L. GTTS: weaned OFF levophed and epi overnight, only remains on insulin. CT: 2M: 120/280, 2P: 220/500. UO: 515/760. Tolerating PO. Neuro: intact.
17.3>8.1<101; 19/1.1. CXR: clear
- D/C A-line
- D/C SGC
- D/C wells
- Transfuse 1 additional U PRBC (done)
- Maintain CTs to pleuravac today
- ASA/plavix (will transition back to ASA/Eliquis on D/C), hold BB today, amio, statin
- Diuresis
- OOB/IS
Original Note:
Today's Communication / Plan
-
Plan:
-No major issues overnight. Hemodynamically and neurologically intact
-Successfully extubated last night 08/15/23 @ 1700
-Weaned off Epinephrine overnight, remains on Levophed @ 2. On insulin gtt per protocol
-Last CI 2.46, U/O since OR 760
-EKG this AM c/w acute pericarditis, patient not complaining of excruciating chest pain
-Monitor chest tube output: 2meds 120/200, R/L pleurals 215/540
-CXR this AM looks good with mild bibasilar atelectasis/pleural effusion on my review, f/u official report
-Cont. current meds (ASA, Crestor, Flomax; held Amiodarone and Lopressor last night while on Epi and Levo. Will add Plavix and likely d/c once back on Eliquis)
-Hold Lasix/BB this AM d/t low BP overnight
-D/C swan and a-line once off pressor
-Transfer to tele phase today once off insulin gtt
-D/C wells later today given BPH hx on Flomax @ home
-Maintain cordis
-Maintain temporary pacer wires (will cut before d/c home)
-Encourage use of IS
-Wean off of O2 as tolerated
Assessment / Plan
-
Assessment:
-S/P CABG x 4 (ANTONY to LAD, GSV to D1, GSV to OM2, GSV to PDA)/ Endoscopic harvest/prep of RLE GSV/Endoscopic evaluation of RLE GSV (abandoned secondary to poor
quality)/[facility] MAZE procedure/ ELAA, by Dr. Brown, 08/15/23, pod#1
-Severe Multivessel CAD
-USA
-LVEF 55-60% per intraop AGUSTIN
-PAF/Atrial tachycardia (on Eliquis @ home)
-HTN
-HLD
-Hx Seizure disorder (on phenytoin)
-Former tobacco use
-BPH (on Flomax)
-Cervical spine stenosis S/P discectomy
-S/P PVI x 3 (05/01/23 @ [facility], 12/10/21, 04/22/21)
-S/P DCCV 11/2022
-Acute postop blood loss/Anemia (transfused 1u PRBC)
-Acute postop thrombocytopenia (stable without active bleed)
-Acute postop atelectasis/pleural effusion
-Acute postop EKG changes c/w acute pericarditis (+rub)
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
Discussed patient care with: Cardiology, Nursing, Respiratory Therapy, Pharmacy and Care Team
Subjective
Procedure
S/P CABG x 4 (ANTONY to LAD, GSV to D1, GSV to OM2, GSV to PDA)/ Endoscopic harvest/prep of RLE GSV/Endoscopic evaluation of RLE GSV (abandoned secondary to poor
quality)/[facility] MAZE procedure/ ELAA, by Dr. Brown, 08/15/23
-
Date of Service: August 16, 2023
Pt c/o incisional pain, otherwise feels well
Objective Data
-
PT 21.2 Sec (11.4-14.6) H 08/15/23 14:45
INR 1.80 08/15/23 14:45
APTT 37.3 Sec (23.4-35.0) H 08/15/23 14:45
Vital Signs
Vital Signs
Temp Pulse Resp BP Pulse Ox
100.2 F 71 23 92/60 99
08/16/23 03:00 08/16/23 03:00 08/16/23 03:00 08/16/23 03:00 08/16/23 03:00
CT Intake/Output/Weight
08/15/23 08/15/23 08/16/23
06:59 18:59 06:59
Intake Total 798.6 / 1571.1 772.5 / 1571.1
Output Total 685 / 1345 660 / 1345
Balance 113.6 / 226.1 112.5 / 226.1
SaO2: 99 (2L)
Physical Exam
-
General: Awake, Oriented and AOx3
Cardiovascular: Regular rate & rhythm, No Murmurs, No Rub and No Gallop
Respiratory: Decreased Breath Sounds (at bases, otherwise navya)
Sternum: Stable
Incision: Clean, Dry, Intact and Dressing Intact
Extremities: No Edema
Data Reviewed
-
Lab Results: Results Reviewed
Medications: Active Meds Reviewed
Chest X-Ray: Report Reviewed and Image Reviewed
ECG: Report Reviewed and Image Reviewed
[2023-08-16 03:51] LABS: Glucose - Point of Care 145 mg/dl (70-99)
[2023-08-16] MEDS: ZINACEF 750 MG IV ×2 (04:03→13:10)
[2023-08-16] MEDS: STERILE WATER FOR INJECTION 8.30000000000000071 ML IV ×2 (04:03→13:10)
[2023-08-16 04:13] LABS: Hematocrit 22.3 % (39.0-52.0); Hemoglobin 8.1 g/dL (13.0-18.0); Mean Corp Hgb Conc. 36.3 g/dL (33.0-37.0); Mean Corpuscular Hgb 34.2 pg (27.0-31.0); Mean Corpuscular Volume 94.1 fL (80.0-94.0); Mean Platelet Volume 9.8 fL (7.4-10.4); Platelet Count 101 10^3/uL (130-400); Red Blood Cell Count 2.37 10^6/uL (4.70-6.10); Red Cell Dist. Width 13.3 % (11.5-14.5); White Blood Cell Count 17.3 10^3/uL (4.8-10.8)
[2023-08-16 04:24] LABS: Ionized Calcium 1.27 mMOL/L (1.15-1.33)
[2023-08-16 04:31] LABS: INR 1.34; PT 16.8 Sec (11.4-14.6)
[2023-08-16 04:47] LABS: Blood Urea Nitrogen 19 mg/dl (9-20); Carbon Dioxide 24 mmol/L (22-30); Chloride 104 mmol/L (98-107); Estimated Creatinine Clearance 52 ml/min; Glucose 133 mg/dl (70-99); Magnesium 2.1 mg/dl (1.6-2.3); Potassium 4.2 mmol/L (3.5-5.1); Sodium 136 mmol/L (135-145); eGFR > 60.00
[2023-08-16] MEDS: DILAUDID 0.25 MG IV ×2 (04:55→20:52)
--- NOTE | 2023-08-16 05:19 | PTCARENOTE ---
Pt c/o of significant chronic neck pain, asking to get OOB. One time dose IVP dilaudid ordered and administered.
AM labs - hgb 8.1. Additional PRBCs x1 started. Steve/shivani to remain in place at this time.
[2023-08-16] MEDS: CALCIUM CHLORIDE 10% SYRINGE 60 MG IV (05:46)
[2023-08-16 06:00] LABS: Glucose - Point of Care 120 mg/dl (70-99)
--- NOTE | 2023-08-16 06:50 | PTCARENOTE ---
Levo gtt weaned off. Valeriano d/grace per order. Pt tolerated well. VSS. Remains on insulin gtt.
[2023-08-16 06:58] LABS: Glucose - Point of Care 107 mg/dl (70-99)
--- NOTE | 2023-08-16 07:17 | W.PN.INTV ---
Today's Communication / Plan
Recommendations
O2
IS
Asp precs
Assessment
-
Assessment:
Mr Reyes Stewart is a 73/M adm 08-09 for worsening dyspnea on CTSx outpatient visit where he was referred for evaluation for CABG ([facility] at [facility] 08-03 with severe CAD). At ER developed recurrent AFib. Seen by Cards and CTSx, needed to start IV heparin
for USA and PAFib (was on apixaban as outpatient). Stabilized for surgery, scheduled for CABG and MAZE procedure
Impression:
USA, multivessel CAD
S/p CABGx4, MAZE procedure 08-15-23
Conditions MANAGER RELOCATION:
Multivessel CAD
PAFib/AT
Implantable long-term redevelopment specialist
HTN
HLD
BPH
Sz disorder, on phenytoin
Nonsmoker
Plan:
Extubated post surgery
IS
Pulmonary artery catheter parameters will be followed
Pressors/antihypertensive/inotropes/diuretics will be provided as needed
Monitor chest tube output
Monitor hemoglobin
Monitor platelet count and coags
Transfuse blood product if needed
CT surgery following chest tubes
BUTTON INSPECTOR at bedside evaluating and treating interim hypotension
Monitor blood sugar
Insulin drip per protocol
Aspiration precautions
DVT prophylaxis
Early nutrition
Early mobilization
Reconsult prn
Diagnostic tests:
CXR 08-16-23: extubated. [facility] SGC, med/chest tubes. Cervical plate
CXR 08-15-22: postop film, ETT, [facility] SGC, bilateral chest tubes, small R PF
CXR 08-09-23: no previous films for comparison. No infiltrates. Implanted redevelopment specialist overlying the cardiac silhouette
TTE 08-09-23: LVEF 55-605, mild LVH, mild MR. Normal RV
Subjective Dataa
Subjective Data
Date of Service:
Date of Service: August 16, 2023
Chief Complaint: Plush Weaver Follow Up
Subjective:
Extubated yesterday with no issue, resp cade stable afterwards
This afternoon, interim hypotension but not in resp distress, returned to bed from chair
CTSx BUTTON INSPECTOR evaluating and treating hypotension
Review of Systems
General: Other (denies major complaints)
Objective Data
Data Reviewed
Vital Signs / I&O / Oxygen:
Vital Signs
Temp Pulse Resp BP Pulse Ox
97.9 F 74 18 99/60 96
08/16/23 07:14 08/16/23 07:00 08/16/23 07:00 08/16/23 07:00 08/16/23 07:00
Intake and Output
08/15/23 08/16/23 08/17/23
06:59 06:59 06:59
Intake Total 400 / 400 1670.7 / 1692.7
Output Total 1540 / 1585 100 / 100
Balance 400 / 400 130.7 / 107.7 -78 / -78
SaO2 [CPAP] 100
SaO2 [SIMV] 100
SaO2 96
Nasal Cannula flow liters per 2
minute
Physical Exam
General: Respiratory Distress
HEENT: Normocephalic and Moist Mucous Membranes
Cardiovascular: Regular Rhythm and Peripheral Edema
Respiratory: Clear and Chest Tube
GI: Soft, Non Distended and Non Tender
Neurology: Awake, Oriented and No Motor Deficits
Skin: Dry
Labs/Micro/Reports
Lab Data
08/16/23 03:48
08/16/23 03:48
Laboratory Results
08/15/23 08/15/23 08/16/23
14:45 16:44 03:48
PT 21.2 H 16.8 H
INR 1.80 1.34
APTT 37.3 H
pH 7.29 L 7.41
pCO2 46 39
pO2 219 H 123 H
HCO3 22.1 24.7
O2 Delivery Level
[2023-08-16] MEDS: LASIX PO (07:48)
--- NOTE | 2023-08-16 08:00 | PTCARENOTE ---
Received pt from nightshift RN; pt AAOx3 and resting comfortably in bed; NSR on monitor and VSS; + rub; RIJ Cordis KVO and PIV x1 all patent; Insulin infusing per Glycemic protocol see flow sheet for details; Lungs diminished throughout; IS to 1250;
CT x4 to -20 wall suction no air leak and no crepitus noted; hypoactive bowel sounds; Keller Catheter draining clear yellow urine; palpable pulses throughout; surgical dressing C/D/I; no edema noted; see nursing documentation for further details.
[2023-08-16 08:08] LABS: Glucose - Point of Care 104 mg/dl (70-99)
[2023-08-16] MEDS: SENOKOT-S 1 TABLET PO ×2 (08:09→20:07)
[2023-08-16] MEDS: DILANTIN 200 MG PO ×2 (08:09→20:07)
[2023-08-16] MEDS: TYLENOL 650 MG PO ×3 (08:09→20:07)
[2023-08-16] MEDS: MAGNESIUM OXIDE 500 MG PO ×2 (08:09→20:07)
[2023-08-16] MEDS: CRESTOR 20 MG PO (08:09)
[2023-08-16] MEDS: LOW STRENGTH ASPIRIN 81 MG PO (08:10)
[2023-08-16] MEDS: LASIX 40 MG IV (08:10)
[2023-08-16] MEDS: PEPCID 20 MG IV (08:10)
[2023-08-16] MEDS: PACERONE 200 MG PO (08:10)
[2023-08-16] MEDS: KCL 20 MEQ PO (08:10)
[2023-08-16] MEDS: NSS (PRESERVATIVE FREE) 8 ML IV (08:10)
--- NOTE | 2023-08-16 08:23 | PTCARENOTE ---
Keller Catheter removed per order; pt OOB to chair with assistance.
[2023-08-16 09:37] LABS: Glucose - Point of Care 148 mg/dl (70-99)
[2023-08-16] MEDS: FLOMAX 0.400000000000000022 MG PO (09:39)
[2023-08-16] MEDS: BACTROBAN 2% OINTMENT 1 APPLIC NASAL ×2 (10:10→20:07)
[2023-08-16 10:35] LABS: Glucose - Point of Care 137 mg/dl (70-99)
[2023-08-16 12:00] LABS: Glucose - Point of Care 111 mg/dl (70-99)
--- NOTE | 2023-08-16 12:51 | W.PN.CARDCBS ---
Addendum entered and electronically signed by Rodrigo Cervantes MD 08/16/23 19:18:
Patient with neck pain, earlier today had to go back on norepinephrine, currently at 3, in bed otherwise no complaints. Hemoglobin had dropped received 2 units of packed cells.
Metoprolol on hold. No second-degree AV block.
PMH/PSH/SH/FH: Reviewed
No allergies
Meds reviewed.
Review of systems negative except for postoperative discomfort
Current blood pressure 105/60, pulse around 100, respiratory 20
Head neck exam unremarkable,
Lungs relatively clear
Regular rate and rhythm
Incision intact
Abdomen benign
Extremities without edema
Hemoglobin 8.5, INR 1.34, BUN/creatinine 19 and 1.1,
Chest x-ray atrial clip in place, length, left effusion and atelectasis, mild vascular congestion
ECG probable pericarditis for scree block
Impression:
CABG 08/15/2023, MACDONALD-LAD, SVG-D1 with Y graft to OM 2, SVG to PDA
History of PAF and PVI at [place] in 04/2023
Hypertension
Hyperlipidemia
Plan
overall looks well postop day 1 despite anemia and relatively low blood pressure, no further heart block,
metoprolol on hold, Furosemide on hold, amiodarone on hold, tamsulosin on hold
Appreciate efforts of CT surgery
Continue supportive care
Original Note:
Today's Communication / Plan
-
Wean off oxygen as able
repeat Hgb after getting 2 units of pRBCs
Lopressor on hold, restart as BP tolerates
Continue usual post op care
Impression / Plan
-
Family Physician:� Josefa Stewart
Recreation Therapy Aides Teacher: Dr. Coombs
Impression:
Presented 08/09/2023 w/ chest pain and dyspnea with minimal exertion
Unstable angina
Multivessel coronary artery disease on cardiac catheterization 08/03/2023
/p CABG x 4 (MACDONALD-LAD, SVG-D1 Y graft to OM2, SVG-PDA) MAZE, and RANDA clip 08/15/2023.
EKG with sinus with 2:1 AVB
Paroxysmal atrial fibrillation/atrial tachycardia
Previously treated with propafenone
Status post PVI ablation 04/22/2021
Status post repeat PVI 12/10/2021
Cardioversion 03/2023
s/p repeat Ablation at [place] w/ Dr. Mijares 05/01/2023
Implantable long-term playground monitor performed at [place]
Chronic anticoagulation with Eliquis
Hypertension
Hyperlipidemia
BPH
Left heart cath 08/03/2023 ([facility]):�LM: LI.� LAD: 99% ostial.� D1 99% mid. LCX: Moderately calcified.� 50% OM1.� RCA 90% mid
Echocardiogram 08/09/2023:�EF 55 to 60%.� Mild concentric LVH.� Mild MR, mild TR with PAP 30 to 35 mmHg
Plan:
-Presented with chest pain 08/09/2023. He had MV CAD by cath at [facility] 08/03/2023.
-Now he is s/p CABG x 4 (MACDONALD-LAD, SVG-D1 Y graft to OM2, SVG-PDA) MAZE, and RANDA clip 08/15/2023.
-Weaned off Levo and Epi overnight. BP reasonably controlled. Resume Lopressor when BP allows
-Post OP EKG stable. In SR with 1st degree AV block with some mild ST elevation which could present early pericarditis. Continue to monitor
-Hgb 8.1, continue to follow closely. s/p 2 units pRBC post op; repeat Hgb pending
-Currently on ASA and Plavix. Will need to be transitioned back to ASA/Eliquis prior to D/c
-Wean oxygen as tolerated, currently on 2 LPM
-Weight up 10 lbs overnight. Agree with IV diuresis
-Continue post op care
Progress Note - Recreation Therapy Aides Teacher
Subjective
Date of Service: August 16, 2023
Patient seen and examined. Sitting up in chair. Notes some incisional sternotomy pain
Objective
Labs:
08/16/23 03:48
08/16/23 03:48
Labs
Hgb 8.1 g/dL (13.0-18.0) L 08/16/23 03:48
Hct 22.3 % (39.0-52.0) L 08/16/23 03:48
Plt Count 101 10^3/uL (130-400) L 08/16/23 03:48
PT 16.8 Sec (11.4-14.6) H 08/16/23 03:48
INR 1.34 08/16/23 03:48
APTT 37.3 Sec (23.4-35.0) H 08/15/23 14:45
Sodium 136 mmol/L (135-145) 08/16/23 03:48
Potassium 4.2 mmol/L (3.5-5.1) 08/16/23 03:48
BUN 19 mg/dl (9-20) 08/16/23 03:48
Creatinine 1.1 mg/dL (0.7-1.3) 08/16/23 03:48
Glucose 133 mg/dl (70-99) H 08/16/23 03:48
Vital Signs and I&O:
Vital Signs
Temp Pulse Resp BP Pulse Ox
98.1 F 76 18 105/59 96
08/16/23 11:01 08/16/23 11:45 08/16/23 11:01 08/16/23 11:30 08/16/23 11:01
Vital Signs
Temp Pulse Resp BP Pulse Ox
98.1 F 76 18 105/59 96
08/16/23 11:01 08/16/23 11:45 08/16/23 11:01 08/16/23 11:30 08/16/23 11:01
Intake & Output
01/28/08/15/23 08/16/23 08/17/23
06:59 06:59 06:59 06:59
Intake Total 320 / 320 400 / 400 1670.7 / 1692.7 84.8 / 84.8
Output Total 1540 / 1585 925 / 925
Balance 320 / 320 400 / 400 130.7 / 107.7 -840.2 / -840.2
Physical Exam
Physical Exam
GEN: awake, Ox3, sitting in chair
HEENT: supple, anicteric, mmm
LUNGS:mildly decreased at bases otherwise CTA, no wheezes/rales; wearing oxygen
CV: Reg, S1/S2, no murmur, rubs or gallops
Chest: sternotomy incision dressing C/D/I
ABD: soft, BS+, NT/ND
EXT: Legs wrapped with JAMES dressing, no edema
NEURO: Gross non-focal
SKIN: No rash, warm, dry
--- NOTE | 2023-08-16 13:06 | PTCARENOTE ---
Assessment unchanged; NSR on monitor and VSS; pt OOB to chair for lunch.
[2023-08-16] MEDS: NSS IV (13:46)
[2023-08-16 14:04] LABS: Hematocrit 23.5 % (39.0-52.0); Hemoglobin 8.5 g/dL (13.0-18.0); Mean Corp Hgb Conc. 36.2 g/dL (33.0-37.0); Mean Corpuscular Hgb 33.5 pg (27.0-31.0); Mean Corpuscular Volume 92.5 fL (80.0-94.0); Red Blood Cell Count 2.54 10^6/uL (4.70-6.10); Red Cell Dist. Width 14.7 % (11.5-14.5); White Blood Cell Count 12.9 10^3/uL (4.8-10.8)
[2023-08-16 14:08] LABS: Glucose - Point of Care 111 mg/dl (70-99)
--- NOTE | 2023-08-16 14:10 | PTCARENOTE ---
Patient sitting in chair, RN in with Pt; pt stated 'I feel lightheaded and dizzy'; SBPs 50-60s, pt symptomatic and HR in 80s; pt placed back in bed with assistance by 2 RNs and CVNP; repeat BP 74/35; CVNP ordering Albumin x1; repeat H&H 8.5/23.5; CV
LUMBER CHECKER placing new orders to restart Levo and to check a CRX.
[2023-08-16] MEDS: LEVOPHED 250 IV (14:30)
[2023-08-16] MEDS: ALBUMIN 5% 250 IV (14:30)
--- NOTE | 2023-08-16 14:32 | PTCARENOTE ---
Albumin given and Levo started per order; awaiting CRX.
[2023-08-16] MEDS: CALCIUM CHLORIDE 10% SYRINGE 500 MG IV (14:42)
[2023-08-16 14:49] LABS: Mean Platelet Volume 9.9 fL (7.4-10.4)
[2023-08-16 14:50] LABS: Platelet Count 86 10^3/uL (130-400)
[2023-08-16 15:07] LABS: Glucose - Point of Care 118 mg/dl (70-99)
[2023-08-16] MEDS: PLAVIX 75 MG PO (15:10)
[2023-08-16] MEDS: PROTONIX 40 MG PO (15:11)
[2023-08-16] MEDS: ULTRAM 50 MG PO ×2 (15:12→22:02)
[2023-08-16] MEDS: VALIUM 2 MG PO (16:14)
--- NOTE | 2023-08-16 16:22 | PTCARENOTE ---
NSR on monitor and VSS; Levo infusing see flow sheet for details; assessment unchanged.
--- NOTE | 2023-08-16 19:45 | PTCARENOTE ---
Assumed care of patient at 1900, patient AAO, resting in bed. Patient POD #1 s/p CVOR, sternal, right and left knee incisional sites WNL. Levo infusing as documented. SR on monitor, Epicardial V Wire to backup 40/10, VSS, lungs diminished, SPO2 97%
on 2L O2, CT x4 to -20 wall suction. Abd soft, non tender, voiding in urinal without issue. GALE equally, palpable distal pulses. Cordis and PIV assessed and maintained. Full assessment completed as documented, plan of care discussed with patient
verbalizing understanding.
--- NOTE | 2023-08-16 20:15 | PTCARENOTE ---
K-Pad applied for comfort.
--- NOTE | 2023-08-16 23:57 | PTCARENOTE ---
Patient currently resting comfortably, medication given for pain as documented in MAR, patient repositioned for comfort. Remains SR on monitor, VSS. No acute changes in assessment.
[2023-08-17] VITALS (40 sets, daily range): BP systolic 70–132; BP diastolic 51–108; BMI 27.4
[2023-08-17] MEDS: VALIUM 2 MG PO ×3 (00:34→22:02)
[2023-08-17] MEDS: TYLENOL 650 MG PO ×5 (00:34→19:02)
--- NOTE | 2023-08-17 01:15 | PTCARENOTE ---
Patient continues with severe pain issues. Patient repositioned and medication given as documented in MAR. CVPA aware.
[2023-08-17] MEDS: DILAUDID 0.25 MG IV (03:40)
[2023-08-17 04:10] LABS: Hemoglobin 7.5 g/dL (13.0-18.0); Mean Corp Hgb Conc. 36.2 g/dL (33.0-37.0); Mean Corpuscular Hgb 32.6 pg (27.0-31.0); Mean Platelet Volume 10.5 fL (7.4-10.4); Platelet Count 85 10^3/uL (130-400); Red Cell Dist. Width 14.3 % (11.5-14.5); White Blood Cell Count 13.7 10^3/uL (4.8-10.8)
[2023-08-17 04:14] LABS: Hematocrit 20.7 % (39.0-52.0)
--- NOTE | 2023-08-17 04:30 | PTCARENOTE ---
Patient remains SR on monitor, SBP in the 80's, levo infusing as documented.
[2023-08-17 04:42] LABS: Blood Urea Nitrogen 23 mg/dl (9-20); Calcium 8.6 mg/dl (8.4-10.2); Carbon Dioxide 30 mmol/L (22-30); Chloride 98 mmol/L (98-107); Estimated Creatinine Clearance 72 ml/min; Glucose 135 mg/dl (70-99); Potassium 4.1 mmol/L (3.5-5.1); Sodium 132 mmol/L (135-145); eGFR > 60.00
[2023-08-17] MEDS: TYLENOL PO (04:59)
--- NOTE | 2023-08-17 05:50 | W.PN.CT ---
Addendum entered and electronically signed by Omega Brown MD 08/17/23 08:04:
I saw and examined the patient.
The PA's note was reviewed and I agree with the note.
Comment:
POD#2 s/p CABG x 4
Vasoplegia yesterday when OOB required levophed to be restarted, weaned OFF overnight. OOB to chair this AM. Tm 101.1. 92 sinus. 108/62. 98% 2L. GTTS: levophed OFF since MN. CT: 2M: 60/200, 2P: 135/395. UO: 500/2105. Tolerating PO. Neuro:
intact. 13.7>7.5<85; 23/0.8. CXR: clear
- D/C CTs today
- Transfuse 1U PRBC
- ASA, hold plavix today given thrombocytopenia, hold BB today, hold flomax, crestor, stop amio
- Will plan to transition to ASA/Eliquis on D/C
- OOB/IS
Original Note:
Today's Communication / Plan
-
-pod #2
-episode of hypotension with sbp 60s on 08/16 - restarted on Levo . Drips: Levo @ 2 - currently off
-c/o constant upper back pain, likely d/t pleural CTs - on Tylenol/Angela/Ultram/Skelaxin, gave prn Dilaudid overnight
-CT output: 2 meds 60/200, 2 pleur 135/395 in 12/24 hrs
-diuresed with 40 iv Lasix 08/16 (UO 800/2100 in 12/24 hrs)
-follow platelets -85K today (86K on 08/16 and 182K preop). Currently, on ASA and Plavix
-follow h&h- 7.5/20.7 today (h/h 8.5/23.5 on 08/16 after getting 2 pRBCs)- ? diurese and re-check today
-current meds (ASA, Plavix, Crestor, Protonix, Feosol). Amio, BB, Flomax held for hypotension 08/16
-encourage IS, OOB
Assessment / Plan
-
Assessment:
-S/P CABG x 4 (ANTONY to LAD, GSV to D1, GSV to OM2, GSV to PDA)/ Endoscopic harvest/prep of RLE GSV/Endoscopic evaluation of RLE GSV (abandoned secondary to poor
quality)/[facility] MAZE procedure/ ELAA, by Dr. Brown, 08/15/23, pod#2
-Severe Multivessel CAD
-USA
-LVEF 55-60% per intraop AGUSTIN
-PAF/Atrial tachycardia (on Eliquis @ home)
-HTN
-HLD
-Hx Seizure disorder (on phenytoin)
-Former tobacco use
-BPH (on Flomax)
-Cervical spine stenosis S/P discectomy
-S/P PVI x 3 (05/01/23 @ [facility], 12/10/21, 04/22/21)
-S/P DCCV 11/2022
-Acute postop blood loss/Anemia (transfused 2u PRBC for Hg 8.1)
-Acute postop thrombocytopenia (stable without active bleed)
-Acute postop atelectasis/pleural effusion
-Acute postop EKG changes c/w acute pericarditis (+rub)
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
-Acute postop hypotension (60/43) on 08/16- got 1 albumin, Levo restarted. Amio/BB/Flomax held
-Acute postop hyponatremia
Discussed patient care with: Nursing and Care Team
Subjective
Procedure
S/P CABG x 4 (ANTONY to LAD, GSV to D1, GSV to OM2, GSV to PDA)/ Endoscopic harvest/prep of RLE GSV/Endoscopic evaluation of RLE GSV (abandoned secondary to poor
quality)/[facility] MAZE procedure/ ELAA, by Dr. Brown, 08/15/23
-
Date of Service: August 17, 2023
Objective Data
-
PT 16.8 Sec (11.4-14.6) H 08/16/23 03:48
INR 1.34 08/16/23 03:48
APTT 37.3 Sec (23.4-35.0) H 08/15/23 14:45
Vital Signs
Vital Signs
Temp Pulse Resp BP Pulse Ox
98.4 F 87 18 105/63 97
08/16/23 23:02 08/17/23 01:00 08/16/23 23:02 08/17/23 01:00 08/17/23 01:00
CT Intake/Output/Weight
08/16/23 08/16/23 08/17/23
06:59 18:59 06:59
Intake Total 872.1 / 1692.7 208.0 / 316.9 108.9 / 316.9
Output Total 855 / 1585 1705 / 2310 605 / 2310
Balance 17.1 / 107.7 -1497.0 / -1992.1 -496.1 / -1992.1
SaO2: 97
Physical Exam
-
General: Awake and AOx3
Cardiovascular: Regular rate & rhythm, No Murmurs and Rub
Respiratory: Decreased Breath Sounds
Sternum: Stable
Incision: Clean, Dry and Dressing Intact
Extremities: Other (trace hand edema b/l, no leg edema b/l, 2+ DP b/l)
Abdomen: soft, nontender, nondistended, + bowel sounds
Data Reviewed
-
Lab Results: Results Reviewed
Medications: Active Meds Reviewed
Chest X-Ray: Report Reviewed and Image Reviewed
ECG: Report Reviewed and Image Reviewed
[2023-08-17] MEDS: SKELAXIN 800 MG PO ×2 (05:53→15:09)
--- NOTE | 2023-08-17 07:33 | PTCARENOTE ---
Patient received from nightshift nurse. Patient is alert and oriented x4, flat. Denies pain/discomfort. NSR with ST elevation (has pericarditis post surgery, Dr. Brown aware). +rub. HR 80s-90s. Audible heart tones. V wire maintained to pacer box
with settings: VVI, HR 40, mA 10, sensitivity 2. BP 108/62. Palpable pulses. +1 LE edema. +1 hand edema. RIJ cordis maintained with KVO. PIV maintained. 2L NC maintained. Oxygen saturation 98%. Upon auscultation, lung sounds diminished throughout
with fine crackles at the bases. CTx4 maintained to -20cm wall suction. MS CTx2 have scant red drainage. Bilateral pleural CTs have small red drainage. Abdomen round. +BS. Per patient, not passing gas yet. Voids in urinal. Assist x2 (with CTs, pacer
box, etc) OOB into chair. Sternal aquacell is clean, dry, intact. R knee incision is approximated with surgical adhesive. L knee incision is approximated with surgical adhesive. Will continue to monitor.
[2023-08-17] MEDS: CRESTOR PO ×2 (07:57→08:14)
[2023-08-17] MEDS: LOW STRENGTH ASPIRIN 81 MG PO (07:57)
[2023-08-17] MEDS: SENOKOT-S 1 TABLET PO ×2 (07:57→19:02)
[2023-08-17] MEDS: MAGNESIUM OXIDE 500 MG PO ×2 (07:57→19:02)
[2023-08-17] MEDS: DILANTIN 200 MG PO ×2 (07:57→19:02)
[2023-08-17] MEDS: KCL 20 MEQ PO (07:57)
[2023-08-17] MEDS: FEOSOL 325 MG PO (07:57)
[2023-08-17] MEDS: BACTROBAN 2% OINTMENT 1 APPLIC NASAL ×2 (07:57→19:02)
[2023-08-17] MEDS: PROTONIX 40 MG PO (07:57)
[2023-08-17] MEDS: PLAVIX PO (08:10)
[2023-08-17] MEDS: LASIX PO (08:11)
--- NOTE | 2023-08-17 10:29 | PTCARENOTE ---
Patient received 1 unit of PRBCs. Patient tolerated. Will administer 20mg IV Lasix as ordered post blood transfusion. Will continue to monitor.
--- NOTE | 2023-08-17 11:01 | PTCARENOTE ---
CTx4 discontinued per order and per protocol with 2 RNs. Patient tolerated. V wires insulated per order and per protocol. New dressing applied. Xray called to obtain a portable CXR. Will continue to monitor.
--- NOTE | 2023-08-17 11:18 | PTCARENOTE ---
Vital signs stable. NSR. HR 80s. BP 112/61. 2L NC maintained. Oxygen saturation 93%. RIJ cordis maintained with KVO. Voiding in urinal. Patient laying in bed s/p CT removal. Will continue to monitor.
[2023-08-17] MEDS: LASIX 20 MG IV (11:41)
[2023-08-17] MEDS: LIDOCAINE 4% PATCH 1 PATCH TOPICAL (11:41)
--- NOTE | 2023-08-17 12:43 | CM ---
CM following for DC planning needs.
Met w/ patient at bedside. Spouse also present. Pt. is POD#2 from CABG. He reports that he is feeling okay.
Reviewed initial assessment. Pt. resides w/ spouse in a private, 2 story home. Functionally, patient is indep. at baseline w/ ADLs, mobility without the use of any assisted device.
Anticipated DC plan is for home w/ CT Transitional Care RN.
Will follow.
--- NOTE | 2023-08-17 13:50 | W.PN.CARDCBS ---
Addendum entered and electronically signed by Wilbert To MD 08/17/23 14:18:
I saw and examined the patient.
The Welding Supervisor's note was reviewed and I agree with the note.
Comment:
GEN: No distress, awake, Ox3
HEENT: supple, anicteric, mmm
LUNGS: CTA, no wheezes/rales
CV: Reg, S1/S2, no rub
ABD: soft, BS+, NT/ND
EXT: No edema
NEURO: Gross non-focal
SKIN: sternotomy
Plan:
Remains in sinus rhythm. Bradycardia is improving. Continue to hold amiodarone and metoprolol.
Wean pressors. Hemoglobin at 7.5. Continue to follow.
Continue aspirin. Will discuss with CT surgery when can restart Eliquis.
Original Note:
Today's Communication / Plan
-
Off Levo
Lopressor and Amiodarone remain on hold
Follow Hgb
Wean 02 as tolerated
PT/OT if able
Impression / Plan
-
Family Physician:� Josefa Stewart
Lacing Presser: Dr. Coombs
Impression:
Presented 08/09/2023 w/ chest pain and dyspnea with minimal exertion
Unstable angina
Multivessel coronary artery disease on cardiac catheterization 08/03/2023
/p CABG x 4 (MACDONALD-LAD, SVG-D1 Y graft to OM2, SVG-PDA) MAZE, and RANDA clip 08/15/2023.
EKG with sinus with 2:1 AVB
Paroxysmal atrial fibrillation/atrial tachycardia
Previously treated with propafenone
Status post PVI ablation 04/22/2021
Status post repeat PVI 12/10/2021
Cardioversion 03/2023
s/p repeat Ablation at [place] w/ Dr. Mijares 05/01/2023
Implantable long-term branch service specialist performed at [place]
Chronic anticoagulation with Eliquis
Hypertension
Hyperlipidemia
BPH
Left heart cath 08/03/2023 ([facility]):�LM: LI.� LAD: 99% ostial.� D1 99% mid. LCX: Moderately calcified.� 50% OM1.� RCA 90% mid
Echocardiogram 08/09/2023:�EF 55 to 60%.� Mild concentric LVH.� Mild MR, mild TR with PAP 30 to 35 mmHg
Plan:
-Presented with chest pain 08/09/2023. He had MV CAD by cath at [facility] 08/03/2023.
-Now he is s/p CABG x 4 (MACDONALD-LAD, SVG-D1 Y graft to OM2, SVG-PDA) MAZE, and RANDA clip 08/15/2023.
-Initially required Levo and Epi. which was weaned. Required restart of Levo POD#1 after he had hypotension. Got additional volume including 1 unit blood (08/16). Currently off Levophed and BP improved.
-Lopressor remains on hold, resume when BP allows
-Post OP EKG stable. In SR with 1st degree AV block with some mild ST elevation which could present early pericarditis. Continue to monitor
-Hgb 7.5, continue to follow closely. s/p 3 units pRBC post op
-Currently on ASA and Plavix. Will need to be transitioned back to ASA/Eliquis prior to D/c
-Wean oxygen as tolerated, currently on 2 LPM
-Weight down 4 lbs overnight after IV Lasix x 1. Continue gentle diuresis with oral Lasix
-Chest tubes removed 08/17/23
-Continue post op care
Progress Note - Lacing Presser
Subjective
Date of Service: August 17, 2023
Patient seen and examined. at bedside. Still feels very tired with some upper back and neck pain. Hurts to take deep breath but denies chest pain, dizziness, SOB at rest.
Objective
Labs:
08/17/23 03:49
08/17/23 03:49
Labs
Hgb 7.5 g/dL (13.0-18.0) L 08/17/23 03:49
Hct 20.7 % (39.0-52.0) L* 08/17/23 03:49
Plt Count 85 10^3/uL (130-400) L 08/17/23 03:49
PT 16.8 Sec (11.4-14.6) H 08/16/23 03:48
INR 1.34 08/16/23 03:48
APTT 37.3 Sec (23.4-35.0) H 08/15/23 14:45
Sodium 132 mmol/L (135-145) L 08/17/23 03:49
Potassium 4.1 mmol/L (3.5-5.1) 08/17/23 03:49
BUN 23 mg/dl (9-20) H 08/17/23 03:49
Creatinine 0.8 mg/dL (0.7-1.3) 08/17/23 03:49
Glucose 135 mg/dl (70-99) H 08/17/23 03:49
Vital Signs and I&O:
Vital Signs
Temp Pulse Resp BP Pulse Ox
98 F 87 17 112/61 93
08/17/23 11:00 08/17/23 13:00 08/17/23 11:00 08/17/23 11:00 08/17/23 11:00
Vital Signs
Temp Pulse Resp BP Pulse Ox
98 F 87 17 112/61 93
08/17/23 11:00 08/17/23 13:00 08/17/23 11:00 08/17/23 11:00 08/17/23 11:00
Intake & Output
08/15/23 08/16/23 08/17/23 08/18/23
06:59 06:59 06:59 06:59
Intake Total 400 / 400 1670.7 / 1692.7 384.4 / 394.4 1520 / 1520
Output Total 1540 / 1585 2715 / 2735 615 / 615
Balance 400 / 400 130.7 / 107.7 -2330.6 / -2340.6 905 / 905
Physical Exam
Physical Exam
GEN: awake, Ox3, lying in bed, appears tired
HEENT: supple, anicteric, mmm
LUNGS:mildly decreased at bases otherwise CTA, no wheezes/rales; wearing oxygen
CV: Reg, S1/S2, no murmur, rubs or gallops
Chest: sternotomy incision dressing C/D/I
ABD: soft, BS+, NT/ND
EXT: trace edema in upper and lower extremities, LLE>RLE
NEURO: Gross non-focal
SKIN: No rash, warm, dry
--- NOTE | 2023-08-17 15:20 | PTCARENOTE ---
Vital signs stable. NSR with ST elevation (Dr. Brown aware). HR 80s. BP 129/82. 2L NC maintained. Oxygen saturation 94%. Attempting to wean O2 requirement. Voids in urinal - good UOP. Ambulated in the villasenor x2. Afterwards, patient placed back into
bed for a nap. Patient c/o acute/chronic neck pain, despite lidocaine patch. Skelaxin administered along with scheduled Tylenol for pain management. Will continue to monitor.
[2023-08-17] MEDS: NSS 500 IV (18:37)
[2023-08-17] MEDS: ULTRAM 50 MG PO (19:01)
--- NOTE | 2023-08-17 19:45 | PTCARENOTE ---
Assumed care of patient at 1900, patient AAO, POD#2 s/p CABx4, surgical sites WNL. patient assisted from chair to bed. VSS, SR on monitor, Lungs diminished, BAUM SPO2 87-89% on RA, 92-94% on 2L O2. coughing/deep breathing/IS encouraged. Abd soft,
non tender, +BS, voiding in urinal without issue. GALE equally, palpable distal pulses. Full assessment completed as documented, plan of care discussed with patient verbalizing understanding.
--- NOTE | 2023-08-17 22:55 | PTCARENOTE ---
Patient resting in bed comfortably, VSS, remains SR on monitor. No acute changes in assessment.
--- NOTE | 2023-08-17 23:00 | PTCARENOTE ---
report received from previous RN, walking rounds done. pt in bed sleeping. VSS. NSR on monitor, HR 80's. pt on 2LNC. RIJ cordis intact w KVO infusing. all surgical sites stable. epicardial wires intact and insulated. see worklist for full
assessment, VS, and interventions.
[2023-08-18] VITALS (10 sets, daily range): BP systolic 103–136; BP diastolic 57–70; PULSE 95; O2SAT 94–96; BMI 27.2
[2023-08-18] MEDS: TYLENOL PO (02:15)
[2023-08-18] MEDS: ULTRAM 50 MG PO ×2 (03:42→21:44)
[2023-08-18] MEDS: TYLENOL 650 MG PO (03:43)
--- NOTE | 2023-08-18 03:45 | PTCARENOTE ---
pt VSS, no changes in assessment. pt AOOx4. tylenol and ultram given for pain. NSR 80's. POX 95% on 2LNC. IS encouraged. AM labs drawn and sent.
[2023-08-18 04:13] LABS: Hematocrit 23.2 % (39.0-52.0); Hemoglobin 8.5 g/dL (13.0-18.0); Mean Corp Hgb Conc. 36.6 g/dL (33.0-37.0); Mean Corpuscular Hgb 32.7 pg (27.0-31.0); Mean Corpuscular Volume 89.2 fL (80.0-94.0); Mean Platelet Volume 10.2 fL (7.4-10.4); Platelet Count 89 10^3/uL (130-400); Red Cell Dist. Width 15.5 % (11.5-14.5); White Blood Cell Count 13.7 10^3/uL (4.8-10.8)
[2023-08-18 04:25] LABS: Blood Urea Nitrogen 19 mg/dl (9-20); Calcium 8.3 mg/dl (8.4-10.2); Carbon Dioxide 29 mmol/L (22-30); Chloride 96 mmol/L (98-107); Estimated Creatinine Clearance 72 ml/min; Glucose 132 mg/dl (70-99); Sodium 130 mmol/L (135-145); eGFR > 60.00
--- NOTE | 2023-08-18 05:07 | W.PN.CT ---
Addendum entered and electronically signed by Omega Brown MD 08/18/23 07:33:
I saw and examined the patient.
The PA's note was reviewed and I agree with the note.
Comment:
POD#3 s/p CABG x 4
No major overnight events. Feels better. Tm 99.8. 84 sinus. 129/64. 92% 2L. No gtts. No drains. UO: spontaneous, adequate. Tolerating PO. Neuro: intact. 13.7>8.5<89; 19/0.8. CXR: pending.
- ASA/plavix, BB, hold amio, statin
- Will resume Eliquis D/C plavix on D/C
- OOB/IS/ambulate
- D/C cordis
- Wean to RA
- D/C planning for 1-2 days (ambulated 3 times in hallway yesterday)
Original Note:
Today's Communication / Plan
-
-pod #3
-no drips. No issues overnight. Fells better overall
-s/p 1 pRBC for Hg 7.5 on 08/17 - h/h today 8.5/23.2
-good response to 20 iv Lasix after transfusion (UO 1725 in 12 hrs)
-follow CXR
-all CTs dcd 08/17
-holding Plavix for low platelets- follow
-holding Amio, BB, Flomax for hypotension
-plan to transition to ASA/Eliquis on D/C
-current meds (ASA, Crestor, Protonix, Feosol)
-encourage IS, OOB
Assessment / Plan
-
Assessment:
-S/P CABG x 4 (ANTONY to LAD, GSV to D1, GSV to OM2, GSV to PDA)/ Endoscopic harvest/prep of RLE GSV/Endoscopic evaluation of RLE GSV (abandoned secondary to poor
quality)/[facility] MAZE procedure/ ELAA, by Dr. Brown, 08/15/23, pod#3
-Severe Multivessel CAD
-USA
-LVEF 55-60% per intraop AGUSTIN
-PAF/Atrial tachycardia (on Eliquis @ home)
-HTN
-HLD
-Hx Seizure disorder (on phenytoin)
-Former tobacco use
-BPH (on Flomax)
-Cervical spine stenosis S/P discectomy
-S/P PVI x 3 (05/01/23 @ [facility], 12/10/21, 04/22/21)
-S/P DCCV 11/2022
-Acute postop blood loss/Anemia (transfused 3u PRBC total)
-Acute postop thrombocytopenia (stable without active bleed)
-Acute postop atelectasis/pleural effusion
-Acute postop EKG changes c/w acute pericarditis (+rub)
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
-Acute postop hypotension (60/43) on 08/16- got 1 albumin, Levo restarted. Amio/BB/Flomax held
-Acute postop hyponatremia
Discussed patient care with: Nursing and Care Team
Subjective
Procedure
S/P CABG x 4 (ANTONY to LAD, GSV to D1, GSV to OM2, GSV to PDA)/ Endoscopic harvest/prep of RLE GSV/Endoscopic evaluation of RLE GSV (abandoned secondary to poor
quality)/[facility] MA[facility] procedure/ ELAA, by Dr. Brown, 08/15/23
-
Date of Service: August 18, 2023
Objective Data
-
PT 16.8 Sec (11.4-14.6) H 08/16/23 03:48
INR 1.34 08/16/23 03:48
APTT 37.3 Sec (23.4-35.0) H 08/15/23 14:45
Vital Signs
Vital Signs
Temp Pulse Resp BP Pulse Ox
98.3 F 79 18 94/59 92
08/17/23 22:55 08/17/23 23:00 08/17/23 22:55 08/17/23 22:40 08/17/23 23:00
CT Intake/Output/Weight
08/17/23 08/17/23 08/18/23
06:59 18:59 06:59
Intake Total 176.4 / 394.4 1560 / 1560
Output Total 1010 / 2735 1865 / 1865
Balance -833.6 / -2340.6 -305 / -305
SaO2: 92
Physical Exam
-
General: Awake and AOx3
Cardiovascular: Regular rate & rhythm, No Murmurs and Rub
Respiratory: Decreased Breath Sounds
Sternum: Stable
Incision: Clean, Dry and Dressing Intact
Abdomen: soft, nontender, nondistended, + bowel sounds
Extremities: Other (trace hand edema b/l, no leg edema b/l, 2+ DP b/l)
Data Reviewed
-
Lab Results: Results Reviewed
Medications: Active Meds Reviewed
Chest X-Ray: Report Reviewed and Image Reviewed
ECG: Report Reviewed and Image Reviewed
--- NOTE | 2023-08-18 07:56 | PTCARENOTE ---
Patient received from nightshift nurse. Patient is alert and oriented x4, flat. Denies pain/discomfort. NSR with ST elevation (has pericarditis post surgery, Dr. Brown aware). No rub auscultated. HR 80s-90s. Audible heart tones. V wires insulated.
BP 106/60. Palpable pulses. Trace LE edema. RIJ cordis maintained with KVO. PIV maintained. 1L NC maintained. Oxygen saturation 93%. IS 1000 - RN and Dr. Brown encouraged 10 times/hr for the IS. Upon auscultation, lung sounds diminished throughout.
Abdomen round. +BS. Passing gas, denies constipation, no BM. Voids in urinal. Assist x1 OOB into chair. RN educated patient on trying to be more independent and doing more for himself. Sternal aquacell is clean, dry, intact. R knee incision is
approximated with surgical adhesive. L knee incision is approximated with surgical adhesive. Will continue to monitor.
[2023-08-18] MEDS: FEOSOL 325 MG PO (08:46)
[2023-08-18] MEDS: KCL 20 MEQ PO (08:47)
[2023-08-18] MEDS: TOPROL XL 12.5 MG PO ×2 (08:47→11:58)
[2023-08-18] MEDS: CRESTOR 20 MG PO (08:47)
[2023-08-18] MEDS: LOW STRENGTH ASPIRIN 81 MG PO (08:47)
[2023-08-18] MEDS: PROTONIX 40 MG PO (08:47)
[2023-08-18] MEDS: BACTROBAN 2% OINTMENT 1 APPLIC NASAL ×2 (08:47→19:58)
[2023-08-18] MEDS: DILANTIN 200 MG PO ×2 (08:47→19:59)
[2023-08-18] MEDS: SENOKOT-S 1 TABLET PO ×2 (08:47→19:59)
[2023-08-18] MEDS: PLAVIX 75 MG PO (08:47)
[2023-08-18] MEDS: LASIX 40 MG PO (08:47)
[2023-08-18] MEDS: MAGNESIUM OXIDE 500 MG PO ×2 (08:47→19:59)
--- NOTE | 2023-08-18 11:41 | PTCARENOTE ---
Vital signs stable. NSR with ST elevation (Dr. Brown aware). HR 90s. Metoprolol dose increased. BP 119/63. 1L NC maintained. Oxygen saturation 93%. Attempting to wean O2 requirement. Voids in urinal. Had a BM. Ambulated in the villasenor w/ CR.
Afterwards, patient placed back into bed for a nap. Patient c/o acute/chronic neck pain. Skelaxin administered. Will continue to monitor.
[2023-08-18] MEDS: SKELAXIN 800 MG PO ×2 (11:58→19:59)
[2023-08-18] MEDS: NSS IV (12:39)
--- NOTE | 2023-08-18 13:37 | W.PN.CARDCBS ---
Addendum entered and electronically signed by Alberto Acuña MD 08/18/23 17:42:
I saw and examined the patient.
The Double Needle Operator's note was reviewed and I agree with the note.
Comment: Briefly, 73-year-old man past medical history of multivessel CAD and AFib s/p PVI initially presenting with chest discomfort diagnosed as unstable angina and he subsequently underwent CABG x 4
He appears stable from a cardiovascular perspective
Not requiring pressor or inotrope support
Maintaining sinus rhythm on tele
ECG with diffuse ST elevation which could be consistent with pericarditis; however, he is not reporting pleuritic type chest pain at this time
Agree with current cardiac meds. Eventual transition to Plavix/Eliquis when safe from a surgical standpoint given h/o AFib.
Volume status is reasonable, agree with gentle diuresis to keep I/O even
We will continue to follow
Original Note:
Today's Communication / Plan
-
Resume Toprol
Continue post op care
Impression / Plan
-
Family Physician:� Josefa Stewart
Valve Assembler: Dr. Coombs
Impression:
Presented 08/09/2023 w/ chest pain and dyspnea with minimal exertion
Unstable angina
Multivessel coronary artery disease on cardiac catheterization 08/03/2023
/p CABG x 4 (MACDONALD-LAD, SVG-D1 Y graft to OM2, SVG-PDA) MAZE, and RANDA clip 08/15/2023.
EKG with sinus with 2:1 AVB
Paroxysmal atrial fibrillation/atrial tachycardia
Previously treated with propafenone
Status post PVI ablation 04/22/2021
Status post repeat PVI 12/10/2021
Cardioversion 03/2023
s/p repeat Ablation at [place] w/ Dr. Mijares 05/01/2023
Implantable long-term bus monitor performed at [place]
Chronic anticoagulation with Eliquis
Hypertension
Hyperlipidemia
BPH
Left heart cath 08/03/2023 ([facility]):�LM: LI.� LAD: 99% ostial.� D1 99% mid. LCX: Moderately calcified.� 50% OM1.� RCA 90% mid
Echocardiogram 08/09/2023:�EF 55 to 60%.� Mild concentric LVH.� Mild MR, mild TR with PAP 30 to 35 mmHg
Plan:
-Presented with chest pain 08/09/2023. He had MV CAD by cath at [facility] 08/03/2023.
-Now he is s/p CABG x 4 (MACDONALD-LAD, SVG-D1 Y graft to OM2, SVG-PDA) MAZE, and RANDA clip 08/15/2023.
-BP stable off pressors. Toprol to restart tonight at lower dose 50mg BID.
-Hgb stable/improved at 8.5. s/p 3 units PRBCs post op (most recently 08/17).
-Post OP EKG stable in SR with 1st degree AV block with some mild ST elevation which could present early pericarditis. Continue to monitor, will recheck EKG in AM.
-Currently on ASA and Plavix. Will need to be transitioned back to ASA/Eliquis prior to D/c
-Weight trending downwards with diuresis.
-Chest tubes removed 08/17/23
-Continue post op care. Ambulation and IS encouraged.
Progress Note - Valve Assembler
Subjective
Date of Service: August 18, 2023
Tired. Denies any chest pain. Did have some SOB this morning, but this has improved.
Objective
Labs:
08/18/23 03:37
08/18/23 03:37
Labs
Hgb 8.5 g/dL (13.0-18.0) L 08/18/23 03:37
Hct 23.2 % (39.0-52.0) L 08/18/23 03:37
Plt Count 89 10^3/uL (130-400) L 08/18/23 03:37
PT 16.8 Sec (11.4-14.6) H 08/16/23 03:48
INR 1.34 08/16/23 03:48
APTT 37.3 Sec (23.4-35.0) H 08/15/23 14:45
Sodium 130 mmol/L (135-145) L 08/18/23 03:37
Potassium 4.0 mmol/L (3.5-5.1) 08/18/23 03:37
BUN 19 mg/dl (9-20) 08/18/23 03:37
Creatinine 0.8 mg/dL (0.7-1.3) 08/18/23 03:37
Glucose 132 mg/dl (70-99) H 08/18/23 03:37
Vital Signs and I&O:
Vital Signs
Temp Pulse Resp BP Pulse Ox
99.3 F 94 20 119/61 93
08/18/23 08:00 08/18/23 11:58 08/18/23 11:45 08/18/23 11:58 08/18/23 11:45
Vital Signs
Temp Pulse Resp BP Pulse Ox
99.3 F 94 20 119/61 93
08/18/23 08:00 08/18/23 11:58 08/18/23 11:45 08/18/23 11:58 08/18/23 11:45
Intake & Output
08/16/23 08/17/23 08/18/23 08/19/23
06:59 06:59 06:59 06:59
Intake Total 1670.7 / 1692.7 384.4 / 394.4 [id number] 540 / 540
Output Total 1540 / 1585 2715 / 2735 2165 / 2165 325 / 325
Balance 130.7 / 107.7 -2330.6 / -2340.6 -255 / -255 215 / 215
Physical Exam
Physical Exam
GEN: awake, alert, oriented x 3. Sitting up in chair.
HEENT: supple, anicteric, mmm
LUNGS: CTA, no wheezes/rales; wearing oxygen 2L NC
CV: Reg, S1/S2, no murmur, rubs or gallops
Chest: sternotomy incision dressing C/D/I
ABD: soft, BS+, NT/ND
EXT: trace edema LLE>RLE
NEURO: Gross non-focal
SKIN: No rash, warm, dry
[2023-08-18] MEDS: VALIUM 2 MG PO (14:30)
--- NOTE | 2023-08-18 14:31 | CM ---
CM following for DC planning needs.
Met w/ patient, spouse at bedside.
Pt. reports that he feels 'okay'.
DC plan reviewed and remains for home w/ CT Transitional Care RN.
CM to cont. to follow.
--- NOTE | 2023-08-18 15:56 | PTCARENOTE ---
Vital signs stable. NSR with ST elevation (Dr. Brown aware). HR 80s-90s. BP 113/61. 2L NC maintained. Oxygen saturation 97%. Attempted to wean O2 requirement. Voids in urinal. Jamila UOP. Patient admits he is depressed. He did not think that this
surgery would take so much out of him. He is anxious and seems to be overwhelmed. PRN Diazepam administered. Will continue to monitor.
[2023-08-18] MEDS: TOPROL XL 50 MG PO (19:58)
[2023-08-19] VITALS (11 sets, daily range): BP systolic 94–144; BP diastolic 53–70; PULSE 63; O2SAT 91–97; BMI 27.3
[2023-08-19] MEDS: VALIUM 2 MG PO ×2 (00:05→20:47)
[2023-08-19 04:54] LABS: Hematocrit 22.7 % (39.0-52.0); Hemoglobin 7.9 g/dL (13.0-18.0); Mean Corp Hgb Conc. 34.8 g/dL (33.0-37.0); Mean Corpuscular Hgb 31.6 pg (27.0-31.0); Mean Corpuscular Volume 90.8 fL (80.0-94.0); Mean Platelet Volume 9.9 fL (7.4-10.4); Platelet Count 108 10^3/uL (130-400); Red Cell Dist. Width 15.2 % (11.5-14.5); White Blood Cell Count 12.5 10^3/uL (4.8-10.8)
--- NOTE | 2023-08-19 05:44 | W.PN.CT ---
Addendum entered and electronically signed by Omega Brown MD 08/19/23 08:23:
I saw and examined the patient.
The PA's note was reviewed and I agree with the note.
Comment:
POD#4 s/p CABG x 4
No major overnight events. Tm 99.3. 81 sinus. 118/67. 95% 2L, 94% RA. No gtts. No drains. UO: spontaneous, adequate. Tolerating PO. Neuro: intact. 12.5>7.9<108; 17/0.7. Na 129. CXR: scant left basilar atelectasis/effusion.
- ASA/plavix, BB, no amio, statin
- Lasix today, free water restriction
- Wean O2 as tolerated
- OOB/IS/ambulate
- D/C for hopefully tomorrow
Original Note:
Today's Communication / Plan
-
-pod #4
-no issues overnight
-follow h/h and plat. On ASA and Plavix currently. Plans to transition to ASA/Eliquis on D/C
-h/h 7.9/22.7 today (8.5/23.2 on 08/18). Platelets improving - 108K today
-Toprol restarted and uptitrated to 50 bid - BP tolerating (at home on Toprol 100 am and 75 pm)
-diuresed with 40 po Lasix 08/18 (UO 475cc)
-follow daily CXR
-meds (ASA, Plavix, Toprol, Crestor, Protonix, Feosol)
-encourage IS, ambulate
-possible d/c soon
Assessment / Plan
-
Assessment:
-S/P CABG x 4 (ANTONY to LAD, GSV to D1, GSV to OM2, GSV to PDA)/ Endoscopic harvest/prep of RLE GSV/Endoscopic evaluation of RLE GSV (abandoned secondary to poor
quality)/[facility] MA[facility] procedure/ ELAA, by Dr. Brown, 08/15/23, pod#4
-Severe Multivessel CAD
-USA
-LVEF 55-60% per intraop AGUSTIN
-PAF/Atrial tachycardia (on Eliquis @ home)
-HTN
-HLD
-Hx Seizure disorder (on phenytoin)
-Former tobacco use
-BPH (on Flomax)
-Cervical spine stenosis S/P discectomy
-S/P PVI x 3 (05/01/23 @ [facility], 12/10/21, 04/22/21)
-S/P DCCV 11/2022
-Acute postop blood loss/Anemia (transfused 3u PRBC total)
-Acute postop thrombocytopenia (stable without active bleed)
-Acute postop atelectasis/pleural effusion
-Acute postop EKG changes c/w acute pericarditis (+rub)
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
-Acute postop hypotension (60/43) on 08/16- got 1 albumin, Levo restarted. Amio/BB/Flomax held
-Acute postop hyponatremia
Discussed patient care with: Nursing and Care Team
Subjective
Procedure
S/P CABG x 4 (ANTONY to LAD, GSV to D1, GSV to OM2, GSV to PDA)/ Endoscopic harvest/prep of RLE GSV/Endoscopic evaluation of RLE GSV (abandoned secondary to poor
quality)/[facility] MA[facility] procedure/ ELAA, by Dr. Brown, 08/15/23
-
Date of Service: August 18, 2023
Objective Data
-
Lab Results
08/18/23 03:37
08/18/23 03:37
PT 16.8 Sec (11.4-14.6) H 08/16/23 03:48
INR 1.34 08/16/23 03:48
APTT 37.3 Sec (23.4-35.0) H 08/15/23 14:45
Vital Signs
Vital Signs
Temp Pulse Resp BP Pulse Ox
98 F 91 20 132/57 96
08/18/23 21:04 08/18/23 21:00 08/18/23 15:52 08/18/23 20:10 08/18/23 20:10
CT Intake/Output/Weight
08/18/23 08/18/23 08/19/23
06:59 18:59 06:59
Intake Total 350 / 1910 1300 / 1300
Output Total 300 / 2165 475 / 775 300 / 775
Balance 50 / -255 825 / 525 -300 / 525
SaO2: 96
Physical Exam
-
General: Awake and AOx3
Cardiovascular: Regular rate & rhythm, No Murmurs and No Rub
Respiratory: Decreased Breath Sounds
Sternum: Stable
Incision: Clean, Dry and Dressing Intact
Extremities: Other (trace edema, 2+ DP b/l)
Data Reviewed
-
Lab Results: Results Reviewed
Medications: Active Meds Reviewed
Chest X-Ray: Report Reviewed and Image Reviewed
ECG: Report Reviewed and Image Reviewed
[2023-08-19 06:02] LABS: Blood Urea Nitrogen 17 mg/dl (9-20); Calcium 8.1 mg/dl (8.4-10.2); Carbon Dioxide 28 mmol/L (22-30); Chloride 96 mmol/L (98-107); Estimated Creatinine Clearance 82 ml/min; Glucose 118 mg/dl (70-99); Potassium 3.8 mmol/L (3.5-5.1); Sodium 129 mmol/L (135-145); eGFR > 60.00
[2023-08-19] MEDS: PLAVIX 75 MG PO (08:32)
[2023-08-19] MEDS: MAGNESIUM OXIDE 500 MG PO ×2 (08:32→20:47)
[2023-08-19] MEDS: TOPROL XL 50 MG PO ×2 (08:32→20:46)
[2023-08-19] MEDS: LOW STRENGTH ASPIRIN 81 MG PO (08:32)
[2023-08-19] MEDS: KCL 20 MEQ PO ×2 (08:32→20:47)
[2023-08-19] MEDS: BACTROBAN 2% OINTMENT 1 APPLIC NASAL (08:32)
[2023-08-19] MEDS: PROTONIX 40 MG PO (08:32)
[2023-08-19] MEDS: MUCINEX 600 MG PO ×2 (08:32→20:47)
[2023-08-19] MEDS: CRESTOR 20 MG PO (08:32)
[2023-08-19] MEDS: LASIX 40 MG IV (08:33)
[2023-08-19] MEDS: FEOSOL 325 MG PO (08:33)
[2023-08-19] MEDS: SENOKOT-S 1 TABLET PO ×2 (08:33→20:47)
[2023-08-19] MEDS: DILANTIN 200 MG PO ×2 (08:33→20:46)
--- NOTE | 2023-08-19 09:08 | PTCARENOTE ---
assumed care of pt from previous shift RN, sinus rhythm on tele, VSS. POX 97% on 2L NC, 92% on RA. + peripheral pulses, trace edema to lower extremities. Lungs diminished, dry cough noted, coughing and deep breathing encouraged. Epicardial pacing
wires insulated, post op dressings intact. Right IJ cordis maintained, PIV flushes easily. Assisted pt w ambulation in hallway, tolerated well. Plan of care reviewed w the pt and question encouraged.
--- NOTE | 2023-08-19 10:15 | PTCARENOTE ---
Routine EKG completed as ordered. Abnormal results reported to Ana Mckenzie and Dr. Augustin
--- NOTE | 2023-08-19 11:20 | ECGCV ---
<Pat Murt> notified of ECG critical value identified by electronic interpretation on ECG completed on <08/19/2023>, at <1005>.
--- NOTE | 2023-08-19 11:51 | PN.CDI ---
Addendum entered and electronically signed by Alcides Mckenzie PA-C 08/19/23 15:11:
postop hypovolemic shock
treated with IVF,prbcs and levophed gtt
Original Note:
CDI
- -
CDI:
Physician Documentation Request
Admit Date: 08/09/23 14:44
Dear Doctor Kevin,
Patient admitted with CAD s/p CABG x 4.
08/[address] note, ' GTTS: weaned OFF Levophed and epi overnight,
08/[address] note, 'episode of hypotension with sbp 60s on 08/16 - restarted on Levo . Drips: Levo @ 2 - currently off....Acute postop hypotension (60/43) on 08/16- got 1 albumin, Levo restarted. Amio/BB/Flomax held
Patient received 3U PRB's ( 08/15, 08/16 and 08/17)
See documented MAP's below:
Selected Entries
08/16/23
13:54 08/16/23
13:57 08/16/23
14:01
MAP (cuff-Matilda Monitor) 49 42 46
08/16/23
14:04 08/16/23
14:15 08/16/23
14:27
MAP (cuff-Matilda Monitor) 47 48 44
08/16/23
14:30 08/16/23
14:34 08/16/23
14:35
MAP (cuff-Matilda Monitor) 46 44 41
Please clarify which of the following is the most likely etiology of the above symptoms and treatment rendered:
Hypovolemic shock
Hemorrhagic shock
Other diagnosis
Use of terms such as suspected, likely, concern for, or probable (associated with a specific diagnosis that is being evaluated, monitored, or treated as if it exists) are acceptable and can be coded in the inpatient setting, when documented at the
time of discharge.
Thank you,
Brianna OLIVO,RN,CCDS
CDI Specialist
Available via [place] text
Please use your independent medical judgment in providing your response.
--- NOTE | 2023-08-19 12:12 | CM ---
CM following for DC planning needs.
Met with patient, spouse at bedside. Pt. sleeping soundly therefore spoke w/ spouse.
Reviewed DC plan for home w/ CT Transitional Care RN. Reviewed post op appointments, Cardiac Rehab.
Plan is for home w/ CT Transitional Care RN.
CM to remain avail.
--- NOTE | 2023-08-19 12:50 | PTCARENOTE ---
pt assisted to bed, SR maintained on tele, VSS. Reviewed plan with pt and questions encouraged.
--- NOTE | 2023-08-19 13:40 | PTCARENOTE ---
cordis removed without incident.
--- NOTE | 2023-08-19 16:08 | W.PN.CARDCBS ---
Today's Communication / Plan
-
Stable cardiology status
Consider change to oral Lasix with close follow-up with low sodium as an outpatient
Restart Eliquis and stop Plavix on discharge. Continue asa
Impression / Plan
-
Family Physician:� Josefa Stewart
Vamp Creaser: Dr. Coombs
Impression:
Presented 08/09/2023 w/ chest pain and dyspnea with minimal exertion
Unstable angina
Multivessel coronary artery disease on cardiac catheterization 08/03/2023
/p CABG x 4 (MACDONALD-LAD, SVG-D1 Y graft to OM2, SVG-PDA) MAZE, and RANDA clip 08/15/2023.
EKG with sinus with 2:1 AVB
Paroxysmal atrial fibrillation/atrial tachycardia
Previously treated with propafenone
Status post PVI ablation 04/22/2021
Status post repeat PVI 12/10/2021
Cardioversion 03/2023
s/p repeat Ablation at [facility] w/ Dr. Mijares 05/01/2023
Implantable long-term gambling monitor performed at [facility]
Chronic anticoagulation with Eliquis
Hypertension
Hyperlipidemia
BPH
Left heart cath 08/03/2023 ([facility]):�LM: LI.� LAD: 99% ostial.� D1 99% mid. LCX: Moderately calcified.� 50% OM1.� RCA 90% mid
Echocardiogram 08/09/2023:�EF 55 to 60%.� Mild concentric LVH.� Mild MR, mild TR with PAP 30 to 35 mmHg
Plan:
He continues to do very well.
ECG with minor lateral ST elevation which may be at mild area of focal pericarditis
Remains asymptomatic
Currently on ASA and Plavix. Will need to be transitioned back to ASA/Eliquis prior to D/c
Weight is relatively stable on IV Lasix. Sodium is low at 129. Consider change to oral Lasix
Stable cardiology status for discharge on 08/20 but will need to decide if Eliquis can be restarted
Discussed with CT surgery
Progress Note - Vamp Creaser
Subjective
Date of Service: August 19, 2023
No complaints.
Objective
Labs:
08/19/23 04:26
08/19/23 04:25
Labs
Hgb Cancelled 08/19/23 04:26
Hct Cancelled 08/19/23 04:26
Plt Count Cancelled 08/19/23 04:26
PT 16.8 Sec (11.4-14.6) H 08/16/23 03:48
INR 1.34 08/16/23 03:48
APTT 37.3 Sec (23.4-35.0) H 08/15/23 14:45
Sodium 129 mmol/L (135-145) L 08/19/23 04:25
Sodium Cancelled 08/19/23 04:25
Potassium 3.8 mmol/L (3.5-5.1) 08/19/23 04:25
Potassium Cancelled 08/19/23 04:25
BUN 17 mg/dl (9-20) 08/19/23 04:25
BUN Cancelled 08/19/23 04:25
Creatinine 0.7 mg/dL (0.7-1.3) 08/19/23 04:25
Creatinine Cancelled 08/19/23 04:25
Glucose 118 mg/dl (70-99) H 08/19/23 04:25
Glucose Cancelled 08/19/23 04:25
Vital Signs and I&O:
Vital Signs
Temp Pulse Resp BP Pulse Ox
99.9 F 81 18 108/59 92
08/19/23 15:28 08/19/23 15:28 08/19/23 15:28 08/19/23 15:28 08/19/23 15:28
Vital Signs
Temp Pulse Resp BP Pulse Ox
99.9 F 81 18 108/59 92
08/19/23 15:28 08/19/23 15:28 08/19/23 15:28 08/19/23 15:28 08/19/23 15:28
Intake & Output
08/17/23 08/18/23 08/19/23 08/20/23
06:59 06:59 06:59 06:59
Intake Total 384.4 / 394.4 1909 / 191 1300 / 1300 110 / 110
Output Total 2715 / 2735 2165 / 2165 1175 / 1175 475 / 475
Balance -2330.6 / -2340.6 -255 / -255 125 / 125 -365 / -365
Physical Exam
Physical Exam
General: Well developed, well nourished in NAD.
Neck: Supple, no JVD, HJR, carotids +2 B/L, no bruits bilaterally.
Heart: Non displaced PMI, RRR, no murmurs, No S3, S4, no rubs.
Lungs: Scattered rhonchi
Sternal dressings noted
Extremities: No clubbing, cyanosis or edema bilaterally.
Neuro: Grossly nonfocal, awake, alert and oriented x3.
--- NOTE | 2023-08-19 16:11 | PTCARENOTE ---
pt remains comfortable sitting in chair, VSS, ambulated with assistance in hallway, tolerated well.
--- NOTE | 2023-08-19 21:00 | PTCARENOTE ---
Received pt from justino RN. Pt sitting OOB in chair, AAOx3. NSR on monitor. +palpable pulses. Epicardial v-wires insulated. +1 pitting edema to left lower extremity, trace edema to right lower extremity. Pulse ox 92% on RA. Lung sounds diminished,
crackles to left base. +productive cough. IS and deep breathing encouraged. Abdomen soft/nontender. Voiding spontaneously. Sternal aquacell C/D/I, CT sutures SEVERO, right and left knee sites approximated and SEVERO. See work list for full assessment and
interventions.
[2023-08-19] MEDS: XOPENEX 1.25 MG INHALANT SOLUTION INH (21:13)
[2023-08-19] MEDS: XANAX 0.25 MG PO (22:29)
[2023-08-20] VITALS (26 sets, daily range): BP systolic 72–126; BP diastolic 39–75; PULSE 80–88; O2SAT 95–98; BMI 27.2
--- NOTE | 2023-08-20 00:45 | PTCARENOTE ---
Assessment unchanged from previous. SR with first degree HB on monitor. Pt sleeping at this time.
[2023-08-20 03:52] LABS: Hemoglobin 9.2 g/dL (13.0-18.0); Mean Corp Hgb Conc. 35.4 g/dL (33.0-37.0); Mean Corpuscular Hgb 32.1 pg (27.0-31.0); Mean Corpuscular Volume 90.6 fL (80.0-94.0); Mean Platelet Volume 9.5 fL (7.4-10.4); Platelet Count 168 10^3/uL (130-400); Red Blood Cell Count 2.87 10^6/uL (4.70-6.10); Red Cell Dist. Width 15.2 % (11.5-14.5)
[2023-08-20 04:18] LABS: Blood Urea Nitrogen 20 mg/dl (9-20); Calcium 8.7 mg/dl (8.4-10.2); Carbon Dioxide 28 mmol/L (22-30); Chloride 94 mmol/L (98-107); Estimated Creatinine Clearance 72 ml/min; Glucose 135 mg/dl (70-99); Potassium 4.5 mmol/L (3.5-5.1); Sodium 130 mmol/L (135-145); eGFR > 60.00
--- NOTE | 2023-08-20 04:51 | W.PN.CT ---
Today's Communication / Plan
-
Plan:
-No major issues overnight. Hemodynamically and neurologically intact
-Cont. current meds ((ASA, Plavix, Toprol XL , Lasix, Crestor, Protonix, Feosol; will d/c plavix and discharge home on ASA/Eliquis)
-Toprol XL resumed and uptitrated to 50 bid - BP tolerating (at home on Toprol 100 am and 75 pm)
-H/h stable @ 9.2/26 today, was h/h 7.9/22.7 yesterday
-Hyponatremia is improving with diuresis, 130 today, was 129 yesterday
-F/U 2-view cxr
-Encourage use of IS
-OOB into chair/Ambulate
-Will cut temporary v-wires before d/c home
-Likely D/C home today
Assessment / Plan
-
Assessment:
-S/P CABG x 4 (ANTONY to LAD, GSV to D1, GSV to OM2, GSV to PDA)/ Endoscopic harvest/prep of RLE GSV/Endoscopic evaluation of RLE GSV (abandoned secondary to poor
quality)/[facility] MAZE procedure/ ELAA, by Dr. Brown, 08/15/23, pod#5
-Severe Multivessel CAD
-USA
-LVEF 55-60% per intraop AGUSTIN
-PAF/Atrial tachycardia (on Eliquis @ home)
-HTN
-HLD
-Hx Seizure disorder (on phenytoin)
-Former tobacco use
-BPH (on Flomax)
-Cervical spine stenosis S/P discectomy
-S/P PVI x 3 (05/01/23 @ [facility], 12/10/21, 04/22/21)
-S/P DCCV 11/2022
-Acute postop blood loss/Anemia (transfused 3u PRBCs total)
-Acute postop thrombocytopenia (stable without active bleed)
-Acute postop atelectasis/pleural effusion
-Acute postop pulmonary insufficiency
-Acute postop EKG changes c/w acute pericarditis (+rub)
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
-Acute postop hypotension (60/43) on 08/16- got 1 albumin, Levo restarted. Amio/BB/Flomax held
-Acute postop hypovolemia with subsequent hypervolemia
-Acute postop hyponatremia
Discussed patient care with: Cardiology, Nursing, Respiratory Therapy, Pharmacy and Care Team
Subjective
Procedure
-S/P CABG x 4 (ANTONY to LAD, GSV to D1, GSV to OM2, GSV to PDA)/ Endoscopic harvest/prep of RLE GSV/Endoscopic evaluation of RLE GSV (abandoned secondary to poor
quality)/[facility] MAZE procedure/ ELAA, by Dr. Brown, 08/15/23
-
Date of Service: August 20, 2023
Pt c/o mild incisional pain, otherwise feels well
Objective Data
-
Lab Results
08/20/23 03:45
08/20/23 03:45
PT 16.8 Sec (11.4-14.6) H 08/16/23 03:48
INR 1.34 08/16/23 03:48
APTT 37.3 Sec (23.4-35.0) H 08/15/23 14:45
Vital Signs
Vital Signs
Temp Pulse Resp BP Pulse Ox
97.7 F 80 18 116/62 94
08/20/23 03:59 08/20/23 03:59 08/20/23 03:59 08/20/23 03:59 08/20/23 03:[address]
CT Intake/Output/Weight
08/19/23 08/19/23 08/20/23
06:59 18:59 06:59
Intake Total 110 / 110
Output Total 700 / 1175 475 / 475
Balance -700 / 125 -365 / -365
SaO2: 94 (RA)
Physical Exam
-
General: Awake, Oriented and AOx3
Cardiovascular: Regular rate & rhythm, No Murmurs, No Rub and No Gallop
Respiratory: Decreased Breath Sounds (at bases with left basilar crackles, otherwise clear)
Sternum: Stable
Incision: Clean, Dry, Intact and Dressing Intact
Extremities: No Edema
Data Reviewed
-
Lab Results: Results Reviewed
Medications: Active Meds Reviewed
Chest X-Ray: Report Reviewed and Image Reviewed
ECG: Report Reviewed and Image Reviewed
[2023-08-20] MEDS: CRESTOR 20 MG PO (07:51)
[2023-08-20] MEDS: PROTONIX 40 MG PO (07:51)
[2023-08-20] MEDS: MUCINEX 600 MG PO ×2 (07:51→20:32)
[2023-08-20] MEDS: DILANTIN 200 MG PO ×2 (07:51→20:27)
[2023-08-20] MEDS: PLAVIX 75 MG PO (07:51)
[2023-08-20] MEDS: LOW STRENGTH ASPIRIN 81 MG PO (07:51)
[2023-08-20] MEDS: TOPROL XL PO (07:51)
[2023-08-20] MEDS: FEOSOL 325 MG PO (07:51)
[2023-08-20] MEDS: LASIX IV (07:51)
[2023-08-20] MEDS: MAGNESIUM OXIDE 500 MG PO ×2 (07:51→20:29)
[2023-08-20] MEDS: KCL PO (07:51)
[2023-08-20] MEDS: SENOKOT-S 1 TABLET PO ×2 (07:51→20:31)
--- NOTE | 2023-08-20 08:00 | PTCARENOTE ---
Received pt from stiff leg derrick operator RN; pt AAOx3 and resting comfortably in chair; NSR on monitor, SBP 80-90s; CVPA at bedside and changing medication orders; Epicardial wires insulated; lungs diminished with fine crackles in right base; IS to 1500;
positive bowel sounds; pt voiding clear yellow urine; palpable pulses throughout; trace edema noted lower extremities; surgical dressing C/D/I; see nursing documentation for further details.
[2023-08-20] MEDS: TOPROL XL 25 MG PO (09:57)
[2023-08-20] MEDS: FLEXBUMIN 50 IV (11:39)
--- NOTE | 2023-08-20 11:45 | PTCARENOTE ---
BP 72/42 and HR 72; pt sitting in chair and symptomatic; CVPA updated; Albumin 25% ordered.
[2023-08-20] MEDS: FLEXBUMIN 100 IV (14:14)
[2023-08-20] MEDS: ULTRAM 50 MG PO (15:27)
[2023-08-20] MEDS: VALIUM 2 MG PO ×2 (16:56→21:06)
[2023-08-20] MEDS: TYLENOL 650 MG PO (20:30)
--- NOTE | 2023-08-20 20:30 | PTCARENOTE ---
Assumed care of patient at 1900. Patient found OOB in chair at time of assessment. Daughter and son in law at bedside. Patient is AOx4, follows commands appropriately, moves all extremities. Patient does report intermittent episodes of anxiety. Lung
sounds are diminished at the bases with some fine crackles noted in the R base. Patient's saO2 is 93% on RA. Heart sounds have a regular rate and rhythm, patient is SR with first deg AV block on the monitor, there is some trace BLE edema noted, but
patient has normal palpable radial and dorsalis pedis pulses. Patient has active BS throughout all four quadrants last BM reported today. Patient is voiding clear yellow urine in the bathroom. Patient has a sternal incision with aquacell dressing
that is CDI, CT wounds that are approx with sutures and SEVERO, a L groin puncture approx with surg adhesive SVEERO, a LLE incision approx with surg adhesive VETERINARY TECHNICIAN ASSISTANT, and a large brusie on the R inner thigh purple ecchymotic and SEVERO. Patient has R FA IV
available for intermittent infusion. VSS. Patient c/o neck pain tylenol administered and warm compress applied. Patient is stable at this time.
[2023-08-20] MEDS: CALCIUM GLUCONATE 130 MG IV (20:54)
[2023-08-21] VITALS (11 sets, daily range): BP systolic 103–137; BP diastolic 45–84; PULSE 95–103; BMI 27.7
--- NOTE | 2023-08-21 00:03 | PTCARENOTE ---
Patient reassessed. VSS. Assisted patient to bathroom. Patient received 1xcalcium gluconate. Valium administered for reported anxiety. No c/o pain at this time. Remains SR with first deg AV block on the monitor.
[2023-08-21] MEDS: ULTRAM 50 MG PO (00:39)
[2023-08-21] MEDS: TYLENOL 650 MG PO (02:50)
--- NOTE | 2023-08-21 04:11 | W.PN.CT ---
Today's Communication / Plan
-
Plan:
-No major issues overnight. Hemodynamically and neurologically intact
-Had an episode of hypotension yesterday after receiving BB and responded to fluid resuscitation, also repleted calcium last night. Toprol XL held overnight
-Cont. current meds ((ASA, Plavix, Toprol XL- currently on hold, Crestor, Protonix, Feosol; will d/c plavix and discharge home on ASA/Eliquis)
-Did not tolerate 25 mg Toprol XL yesterday, was on 100 mg in AM and 75 mg PM @ home)
-H/h stable @ 8.4/24.2 (likely hemodilutional), was 9.2/26 yesterday. No evidence of hematoma from incision sites
-Hyponatremia, 128 today, was 130 yesterday, likely decreased d/t volume received yesterday for hypotension, unfortunately BP likely will not tolerate diuresis today
-Encourage use of IS
-OOB into chair/Ambulate
-Will cut temporary v-wires before d/c home
-Home later today vs tomorrow
Assessment / Plan
-
Assessment:
-S/P CABG x 4 (ANTONY to LAD, GSV to D1, GSV to OM2, GSV to PDA)/ Endoscopic harvest/prep of RLE GSV/Endoscopic evaluation of RLE GSV (abandoned secondary to poor
quality)/[facility] MAZE procedure/ ELAA, by Dr. Brown, 08/15/23, pod#6
-Severe Multivessel CAD
-USA
-LVEF 55-60% per intraop AGUSTIN
-PAF/Atrial tachycardia (on Eliquis @ home)
-HTN
-HLD
-Hx Seizure disorder (on phenytoin)
-Former tobacco use
-BPH (on Flomax)
-Cervical spine stenosis S/P discectomy
-S/P PVI x 3 (05/01/23 @ [facility], 12/10/21, 04/22/21)
-S/P DCCV 11/2022
-Acute postop blood loss/Anemia (transfused 3u PRBCs total)
-Acute postop thrombocytopenia (stable without active bleed)
-Acute postop atelectasis/pleural effusion
-Acute postop pulmonary insufficiency
-Acute postop EKG changes c/w acute pericarditis (+rub)
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
-Acute postop hypotension (60/43) on 08/16- got 1 albumin, Levo restarted. Amio/BB/Flomax held
-Acute postop hypovolemia with subsequent hypervolemia
-Acute postop hyponatremia, 128
Discussed patient care with: Cardiology, Nursing, Respiratory Therapy, Pharmacy and Care Team
Subjective
Procedure
-S/P CABG x 4 (ANTONY to LAD, GSV to D1, GSV to OM2, GSV to PDA)/ Endoscopic harvest/prep of RLE GSV/Endoscopic evaluation of RLE GSV (abandoned secondary to poor
quality)/[facility] MAZE procedure/ ELAA, by Dr. Brown, 08/15/23
-
Date of Service: August 21, 2023
Pt c/o mild incisional pain, otherwise feels well
Objective Data
-
PT 16.8 Sec (11.4-14.6) H 08/16/23 03:48
INR 1.34 08/16/23 03:48
APTT 37.3 Sec (23.4-35.0) H 08/15/23 14:45
Vital Signs
Vital Signs
Temp Pulse Resp BP Pulse Ox
99.3 F 87 22 108/45 95
08/21/23 03:00 08/21/23 03:00 08/21/23 03:00 08/21/23 03:00 08/21/23 03:00
CT Intake/Output/Weight
02/10/0808/20/23 08/21/23
06:59 18:59 06:59
Intake Total 150 / 870 720 / 870
Balance 150 / 870 720 / 870
SaO2: 95 (RA)
Physical Exam
-
General: Awake, Oriented and AOx3
Cardiovascular: Regular rate & rhythm, No Murmurs, No Rub and No Gallop
Respiratory: Decreased Breath Sounds (at bases, with left basilar crackles)
Sternum: Stable
Incision: Clean, Dry, Intact and Dressing Intact
Extremities: No Edema
Data Reviewed
-
Lab Results: Results Reviewed
Medications: Active Meds Reviewed
Chest X-Ray: Report Reviewed and Image Reviewed
ECG: Report Reviewed and Image Reviewed
[2023-08-21 04:15] LABS: Hematocrit 24.2 % (39.0-52.0); Hemoglobin 8.4 g/dL (13.0-18.0); Ionized Calcium 1.17 mMOL/L (1.15-1.33); Mean Corp Hgb Conc. 34.7 g/dL (33.0-37.0); Mean Corpuscular Hgb 31.7 pg (27.0-31.0); Mean Corpuscular Volume 91.3 fL (80.0-94.0); Mean Platelet Volume 9.6 fL (7.4-10.4); Platelet Count 192 10^3/uL (130-400); Red Blood Cell Count 2.65 10^6/uL (4.70-6.10); Red Cell Dist. Width 14.8 % (11.5-14.5)
--- NOTE | 2023-08-21 04:30 | PTCARENOTE ---
Patient reassessed. BP somewhat low this AM MAP 63 CT PA notified. AM labs obtained. Low iCa ordered additional calcium gluconate awaiting medication from pharmacy. Patient attempting to sleep in recliner reports discomfort in the bed. Ultram and
tyenol administered for neck pain somewhat effective. Patient is stable.
[2023-08-21 04:57] LABS: Blood Urea Nitrogen 17 mg/dl (9-20); Carbon Dioxide 25 mmol/L (22-30); Chloride 95 mmol/L (98-107); Estimated Creatinine Clearance 82 ml/min; Glucose 129 mg/dl (70-99); Potassium 4.3 mmol/L (3.5-5.1); Sodium 128 mmol/L (135-145); eGFR > 60.00
[2023-08-21] MEDS: CALCIUM GLUCONATE 130 MG IV (04:59)
[2023-08-21 05:54] LABS: Magnesium 2.2 mg/dl (1.6-2.3)
--- NOTE | 2023-08-21 07:00 | PTCARENOTE ---
Bedside walking rounds report received. Patient seen on rounds oob in chair. Room air. IS to 1500 Awake alert and oriented x 3. Slightly anxious. Denies ligheadedness or dizziness at rest. Denies significant pain. SB to NSR on monitor once awake
and up for day. EPicardial v wire remains insulated and secured. See flowrecord for remaining assessments.
[2023-08-21] MEDS: LOW STRENGTH ASPIRIN 81 MG PO (08:28)
[2023-08-21] MEDS: MUCINEX 600 MG PO (08:28)
[2023-08-21] MEDS: PROTONIX 40 MG PO (08:28)
[2023-08-21] MEDS: DILANTIN 200 MG PO (08:29)
[2023-08-21] MEDS: CRESTOR 20 MG PO (08:29)
[2023-08-21] MEDS: FEOSOL 325 MG PO (08:29)
[2023-08-21] MEDS: MAGNESIUM OXIDE 500 MG PO (08:29)
[2023-08-21] MEDS: PLAVIX 75 MG PO (08:29)
[2023-08-21] MEDS: SENOKOT-S PO (08:29)
[2023-08-21] MEDS: VALIUM 2 MG PO (08:36)
--- NOTE | 2023-08-21 10:15 | PTCARENOTE ---
Orthostatic BP's as documented: CT surgery aware of approx 17 pt systolic bp drop with standing and approx 10bpm increase in HR to 110's. Plan: observe, increase ambulation and recheck orthostatic later this afternoon and possible dc home late this
afternoon
--- NOTE | 2023-08-21 13:15 | PTCARENOTE ---
Orthostatic BP's repeated: no change in BP lying to sitting to standing and no lightheadedness with standing. Sinus tach while standing with rates in the low 100's. JET Amezquita, aware and aware that patient has ambulated 3x since this am in hallway
without difficulty: patient is eager to go home today. OK per cardiology to resume low dose beta rhys tonight and dc home this afternoon.
--- NOTE | 2023-08-21 13:50 | W.DCSUMMARY ---
Discharge Summary
Discharge Data
Date of Admission: 08/09/23
Date of Discharge: 08/21/23
-
Pending Results: No
Hospital Course
Primary care physician: Josefa Stewart
Outpatient cell reliner: Yazmin Coombs
Inpatient consultants: [facility]
Procedures:
1. coronary artery bypass grafting/MAZE/ left atrial appendage excision
Primary Diagnosis:
1. Coronary artery disease
Secondary Diagnoses:
1. Paroxysmal atrial fibrillation
2. Hypertension
3. Hyperlipidemia
4. Benign prostatic hypertrophy
5. Cervical stenosis
6. Remote seizure disorder
HPI: Mr. Stewart is a 73-year-old male that was admitted from the cardiothoracic surgery surgery office to the emergency room on 124 for acute shortness of breath.
Hospital course: Patient ruled out for myocardial infarction and heart failure. Patient was admitted for Eliquis washout and last dose was 08/09/2023. Heparin was initiated and amiodarone was discontinued as patient reported chest pain after
receiving dose. Troponin and EKG remained negative. On 08/15, patient underwent CABG x 4 with MACDONALD to LAD, saphenous vein graft to diagonal 1 and Y graft to OM 2, saphenous vein graft to PDA, maze procedure, left atrial appendage # 45mm Atricure
clip with Dr. Brown. Patient returned to the CVICU on Levophed, Precedex, and insulin. Patient did have a vagal episode upon awakening and biting his endotracheal tube. Patient received albumin and was started on epinephrine. Hemoglobin was 8.1
and patient received a total of 2 units of packed red blood cells. The epinephrine and Levophed were weaned off on postoperative day #1. Keller was removed and patient resumed Flomax. Aspirin and Plavix were started. Patient had a near syncopal
event when out of bed to the chair with hypotension. Patient was assisted back to bed and repeat hemoglobin was 8.5. Patient received no further blood products. Levophed was restarted. Flomax, Skelaxin, and amiodarone were held. On
post-operative day #2, the Levophed was weaned off and chest drains were removed. Patient received 1 packed red blood cell for hemoglobin of 7.5. On postoperative day #3 the patient resumed beta-rhys and was diuresed. Plavix was resumed.
Transient thrombocytopenia resolved. Postoperative day #4 patient was hyponatremic and further diuretics held. On postoperative day #5 the patient had orthostatic blood pressures and morning dose of beta-rhys was held. Blood pressure
stabilized by afternoon and Toprol 12.5 mg was given with resultant systolic blood pressure in the 70s. Blood pressure improved with administration of 25% albumin. On postoperative day #6, blood pressure systolic was 120s with heart rate in the
90s and sinus rhythm. Patient ambulated in halls with without dizziness. Orthostatic vital signs were checked and reported normal. Patient evaluated by Dr. Suarez and deemed stable for discharge. Upon discharge, Plavix was discontinued and
patient will continue home dose of Eliquis and low dose aspirin. Temporary epicardial pacemaker wires were clipped at the skin. Case reviewed with Dr. Pride and patient will be discharged on metoprolol succinate 12.5 mg daily (dose in PM).
Transitional nurses alerted for need for follow-up BMP in 1 week to assess asymptomatic hyponatremia.
Home medication changes:
see below
Discharge Plan
-
Patient Disposition: Home (Routine Discharge)
Discharge Diagnosis/Procedures: CAD/CABG
Condition: Fair
Diet: Low Fat and Low Sodium
Activity: As tolerated
Driving Restrictions: Not until seen by your Dr
Bathing Restrictions: OK to Shower
Blood Work: BMP in 1 week
Other Services: Cardiac Rehab
Specialty Instructions: Weigh Daily- Call MD for wt gain/loss 3 lbs overnight/5 lbs in 1 week
Stop these medications:: tamsulosin
metoprolol tartrate
metoprolol succinate dose changed to new lower dose
Activity Restrictions/Additional Instructions:
ACTIVITY:
-No strenuous activity: no heavy lifting, pushing, pulling anything over 15 pounds for one month
-continue to use stairs as tolerated
DRIVING RESTRICTIONS:
-No driving for one month or until approved by your surgeon
WOUND CARE:
-Shower daily. Use soap & water.
-No lotions, creams or powders on incision area.
DIET:
-continue a low fat/low cholesterol diet.
-IF you are diabetic, continue carb controlled diet.
CARDIAC REHAB:
-Please make appointment to start in 5-6 weeks with your local hospital program. (See Cardiac Rehabilitation Discharge Booklet).
SPECIALTY INSTRUCTIONS:
-Weigh yourself daily. Call your physician for any weight gain/loss of 3 lbs overnight or 5 lbs in one week.
-REPORT any clicking noise or uneven appearance of your sternum to your surgeon immediately.
-If you smoke, you are instructed to quit. The [place] smoking hotline phone number is [phone]
Referrals:
CT Transitional Care Nurse [Outside] (The Cardiothoracic Transitional Care Nurse will call you to set up a visit in 1-2 days.)
Josefa Stewart DO [Family Provider] -
Yazmin Coombs MD [Non-Admitting Privileges] - 09/29/23 2:40 pm (*Your previous appointment with Dr. Coombs on 08/22 was cancelled and changed to this one*)
Omega Brown MD [Active] - 09/20/23 2:00 pm
Prescriptions:
New
aspirin [Children's Aspirin] 81 mg Tablet,Chewable
81 mg PO DAILY Qty: 0 3RF
sennosides-docusate sodium [Stool Softener-Stimulant Laxat] 8.6-50 mg Tablet
1 tab PO Q12 Qty: 20 1RF
pantoprazole 40 mg Tablet,Delayed Release (Dr/Ec)
40 mg PO DAILY Qty: 30 0RF
acetaminophen 325 mg Tablet
650 mg PO Q4HPRN PRN (Reason: mild pain,headache,temp >101F ) Qty: 0 0RF
metoprolol succinate 25 mg tablet extended release 24 hr
12.5 mg PO HS Qty: 30 0RF
tramadol 50 mg tablet
50 mg PO Q6H PRN (Reason: severe pain) Qty: 20 0RF
Continued
phenytoin sodium extended 100 MG capsule
200 mg PO BID
Eliquis 5 MG tablet
5 mg PO BID
diazepam 5 mg Tablet
5 mg PO HS PRN (Reason: muscle spasms/sleep)
Patient Comments:
08/09/2023, pt. filled this med. on 07/14/2023 for 90 tablets according to PDMP.
rosuvastatin 20 mg Tablet
20 mg PO DAILY
Calm Supplement
1 dose PO DAILY
Patient Comments:
08/09/2023, powder.
Trace Minerals Supplement
1 cap PO NOON
Discontinued
metoprolol succinate [Toprol XL] 50 MG tablet extended release 24 hr
100 mg PO DAILY
metoprolol succinate 50 mg Tablet Extended Release 24 Hr
75 mg PO QPM
tamsulosin 0.4 mg Capsule
0.4 mg PO NOON
metoprolol tartrate 25 mg Tablet
25 mg PO DAILY PRN (Reason: rapid heart rates)
Discharge Orders:
Discharge Patient (As Directed); Ordered 08/21/23
Ordered By: Bia Still
Care Plan Goals
Care Plan Goals:
Problem: Readiness for enhanced knowledge related to diagnosis and treatment plan
Goal: Understand your diagnosis and treatment plan needs, including medications if applicable.
Instructions: Know your diagnosis, underlying causes and treatment plan options, including medications if applicable. Consult with your health care team to learn about your diagnosis and treatment plan, including medications if applicable.
--- NOTE | 2023-08-21 14:00 | PTCARENOTE ---
Assisted patent back to bed: epicardial v wire suture swabbed with chg and epicardial v wire cut and retracted under skin with assist of 2 commissioner of internal revenue 's as per protocol. Patient tolerated well. Sternal aquacell removed. Sternal incision cdi and well
approximated with sternal adhesive present. Chest tube sites swabbed with chg and cdi. Showered and cleard for discharge to home.
[2023-08-21] MEDS: PREVNAR 20 0.5 ML IM (14:35)
== END 2023-08-21 15:45 | disposition home or self-care (01) | DRG 233 ==
LOC: CVICU 14:44
PROVIDERS: Anesthesiology; Clinical Nurse Specialist Acute Care; Internal Medicine; Nurse Practitioner; Physician Assistant; Physician Assistant Medical; Physician Assistant Surgical; Thoracic Surgery (Cardiothoracic Vascular Surgery); ADMITTING PHYSICIAN Internal Medicine; ATTENDING PHYSICIAN Thoracic Surgery (Cardiothoracic Vascular Surgery); CONSULT PHYSICIAN Nuclear Medicine Nuclear Cardiology; EMERGENCY PHYSICIAN Emergency Medicine; FAMILY PHYSICIAN Family Medicine; OTHER PHYSICIAN Internal Medicine Pulmonary Disease
PROC: 02100ZC Bypass Coronary Artery, One Artery from Thoracic Artery, Open Approach (ICD-10-PCS; 2023-08-15)
PROC: 02L70CK Occlusion of Left Atrial Appendage with Extraluminal Device, Open Approach (ICD-10-PCS; 2023-08-15)
PROC: 021209W Bypass Coronary Artery, Three Arteries from Aorta with Autologous Venous Tissue, Open Approach (ICD-10-PCS; 2023-08-15)
PROC: 06BQ4ZZ Excision of Left Saphenous Vein, Percutaneous Endoscopic Approach (ICD-10-PCS; 2023-08-15)
PROC: 30233N1 Transfusion of Nonautologous Red Blood Cells into Peripheral Vein, Percutaneous Approach (ICD-10-PCS; 2023-08-15)
PROC: [UNRECOGNIZED PROCEDURE] (2023-08-15)
PROC: 02580ZZ Destruction of Conduction Mechanism, Open Approach (ICD-10-PCS; 2023-08-15)
PROC: B24BZZ4 Ultrasonography of Heart with Aorta, Transesophageal (ICD-10-PCS; 2023-08-15)
PROC: 5A1221Z Performance of Cardiac Output, Continuous (ICD-10-PCS; 2023-08-15)
PROC: 3E0234Z Introduction of Serum, Toxoid and Vaccine into Muscle, Percutaneous Approach (ICD-10-PCS; 2023-08-21)
DX: I25.110 Atherosclerotic heart disease of native coronary artery with unstable angina pectoris (principal); J95.1 Acute pulmonary insufficiency following thoracic surgery; T81.19XA Other postprocedural shock, initial encounter; E87.1 Hypo-osmolality and hyponatremia; D62 Acute posthemorrhagic anemia; J98.11 Atelectasis; J90 Pleural effusion, not elsewhere classified; I30.9 Acute pericarditis, unspecified; I47.19 Other supraventricular tachycardia; R73.9 Hyperglycemia, unspecified; R00.1 Bradycardia, unspecified; I95.81 Postprocedural hypotension; I44.1 Atrioventricular block, second degree; D69.59 Other secondary thrombocytopenia; E87.70 Fluid overload, unspecified; Y83.8 Other surgical procedures as the cause of abnormal reaction of the patient, or of later complication, without mention of misadventure at the time of the procedure; I48.0 Paroxysmal atrial fibrillation; I10 Essential (primary) hypertension; E78.5 Hyperlipidemia, unspecified; N40.0 Benign prostatic hyperplasia without lower urinary tract symptoms; M48.02 Spinal stenosis, cervical region; G40.909 Epilepsy, unspecified, not intractable, without status epilepticus; I45.10 Unspecified right bundle-branch block; Z23 Encounter for immunization; Z87.891 Personal history of nicotine dependence; Z82.49 Family history of ischemic heart disease and other diseases of the circulatory system; Z79.01 Long term (current) use of anticoagulants
CPT/HCPCS: 33259; 71045; 71046; 80048; 80053; 80185; 81003; 82330; 82565; 82805; 82810; 82947; 82962; 83036; 83735; 83880; 84132; 84302; 84484; 84520; 85014; 85018; 85025; 85027; 85049; 85347; 85384; 85576; 85610; 85730; 86850; 86900; 86901; 86920; 90677; 93005; 93306; 93312; 93320; 93325; 93880; 94002; 94640; 96365; 96366; 99285; G0009; P9016; P9045; P9047

== ENCOUNTER 2023-09-06 18:19 | Inpatient (IN) | payer MEDICARE, SELFPAY ==
[2023-09-06] VITALS (9 sets, daily range): BP systolic 106–134; BP diastolic 66–79; BMI 24.9; BMI 23.4
--- NOTE | 2023-09-06 16:11 | ED.GENMED ---
History of Present Illness
General
Chief Complaint: Breathing Problem
Source: patient
Exam Limitations: none
Time Seen by Provider: 09/06/23 15:48
Nursing documentation reviewed up to this point in time: agreed with
Travel History
Have you had any contact with someone who has COVID-19?: No
Do you have any symptoms of coronavirus? Fever > 100 degrees, chills, cough, shortness of breath, sore throat, loss of taste or smell, muscle aches, or headache?: No
History of Present Illness
History of Present Illness:
Patient status post coronary bypass surgery 4 weeks ago presents to ED secondary to worsening shortness of breath with exertion over the past 2 weeks. Patient was evaluated by her primary garment patternmaker and had an outpatient x-ray performed
yesterday, which revealed increased pleural effusion. Patient's garment patternmaker spoke with Dr. Brown, CT surgery at [facility], who recommended patient come to ED for an evaluation. Denies chest pain. Denies fever or chills. Denies
coughing. Denies leg pain or swelling. Denies back pain. Denies vomiting or diarrhea. Denies weight gain. Patient states that his shortness of breath is just as worse as prior to his surgery. Pt is currently taking aspirin/Eliquis
Review of Systems
Review of Systems
Allergies reviewed?: Yes
All Other Systems: ROS reviewed and negative except as documented in HPI and ROS
Constitutional: Reports no symptoms
EENT: Reports no symptoms
Respiratory: Reports trouble breathing; Denies cough
Cardiac: Reports no symptoms; Denies chest pain
ABD/GI: Reports no symptoms
: Reports no symptoms
Musculoskeletal: Reports no symptoms
Skin: Reports no symptoms
Neurological: Reports no symptoms
Phy Exam
Physical Exam
Physical Exam:
Physical Exam
General: mild distress, not acutely ill. afebrile.
Head: nc/at. eomi
Neck: supple. no meningeal signs.
Heart: s1/s2 regular rate and rhythm, systolic ejection murmur. equal radial pulses.
Lungs: mild respiratory distress. expiratory wheezing bilaterally
Abdomen: normal bowel sounds. not tender.
Neuro: alert and oriented. no focal neurological deficits
Skin: no rash
Psychiatric: well kept. interactive and cooperative
Extremities: no edema. no calf tenderness.
Scores
Heart Failure Risk
Heart Failure Risk Score: Not Applicable
Course
Orders/Labs/Results
Orders:
Orders
09/06/23 14:34
Electrocardiogram (*1) Urgent
Reason for Study: Shortness of Breath
09/06/23 14:35
EKG- Treatment ONCE
09/06/23 Dinner
Regular
At Your Request: Full Participation
09/06/23 16:05
CR Chest - 2 Views Urgent
Comment:
Reason For Exam: sob with exertion
09/06/23 16:26
COVID-19 Antigen Urgent
Source: Nasal Swab
Complete Blood Count/With Diff Urgent
Comprehensive Metabolic Panel Urgent
Magnesium Urgent
NT-proBNP Urgent
Troponin I Urgent
09/06/23 17:42
Dexamethasone Sod Phosphate [Decadron] 6 mg IV NOW STA
Ipratropium/Albuterol Sulfate [Duoneb] 3 ml INH R NOW ONE
09/06/23 18:11
Admit/Transfer Patient As Directed
Co-Sign Provider:
Level of Care: Inpatient admission
Assign to:: Telemetry
Physician / Group: mathew
Diagnosis: pleural effusion
Reason for Telemetry: Arrhythmia
Date to Stop Telemetry: 09/09/23
Time to Stop Telemetry: 11:00
Reason for Hospitalization: pleural effusion
Expected length of stay greater than two midnights?: Yes
ELOS- Estimated Length of Stay in days: 2
I certify the patient meets the requirements for IP care: Yes
09/06/23 18:12
Code Status As Directed
Resuscitation Status: Do not resuscitate
Reached after discussion with pt or family/Healthcare POA: Yes
DNR Bracelet Application ONCE
09/06/23 19:42
Acetaminophen [Tylenol] 1,000 mg PO Q6HPRN PRN
Diazepam [Valium] 5 mg PO HSPRN PRN
09/06/23 19:42
Cardiothoracic Surgery Consult Routine
Consulting Provider: Omega Brown
Was physician already notified: Yes
VTE Contraindication Routine
VTE Mechanical Device Contraindication: Medical Contraindication
Pharmocologic Contraindication: Medical Contraindication
Activity As Directed
Activity Level: As Tolerated
Vital Signs As Directed
Frequency: Per unit guidelines
09/06/23 20:00
Apixaban [Eliquis] 5 mg PO BID
Metoprolol Xl [Toprol Xl] 12.5 mg PO DAILY@1999
Phenytoin [Dilantin] 200 mg PO BID
09/07/23 06:00
Complete Blood Count/With Diff IN AM
Comprehensive Metabolic Panel IN AM
09/07/23 08:00
Aspirin Low Dose EC [Aspir Low (Enteric Coated)] 81 mg PO DAILY
Docusate Sodium [Colace] 100 mg PO DAILY
Ferrous Sulfate [Feosol] 325 mg PO DAILY
Pantoprazole [Protonix] 40 mg PO DAILY
Rosuvastatin Calcium [Crestor] 20 mg PO DAILY
Tamsulosin [Flomax] 0.4 mg PO DAILY
09/09/23 11:00
DC Protocol for Telemetry ONCE
Abnormal Lab Results
09/06/23
16:26
WBC 11.4 H 10^3/uL
(4.8-10.8)
RBC 3.24 L 10^6/uL
(4.70-6.10)
Hgb 10.4 L g/dL
(13.0-18.0)
Hct 30.8 L %
(39.0-52.0)
MCV 95.1 H fL
(80.0-94.0)
MCH 32.1 H pg
(27.0-31.0)
RDW 15.1 H %
(11.5-14.5)
Absolute Neuts (auto) 7.0 H 10^3/uL
(1.4-6.5)
Absolute Monos (auto) 1.0 H 10^3/uL
(0.1-0.6)
Absolute Eos (auto) 1.5 H 10^3/uL
(0-0.7)
Lymphocytes % 15.0 L %
(20.5-51.1)
Eosinophils % 13.4 H %
(0-6)
Sodium 130 L mmol/L
(135-145)
Glucose 107 H mg/dl
(70-99)
09/06/23 16:26
09/06/23 16:26
Vital Signs
Initial and Last Documented VS:
Initial Vital Signs
Temp Pulse Resp BP Pulse Ox
97.6 F 98 26 106/66 96
09/06/23 14:38 09/06/23 14:38 09/06/23 14:38 09/06/23 14:38 09/06/23 14:38
Last Documented Vital Signs
Temp Pulse Resp BP Pulse Ox
98.9 F 102 18 134/79 99
09/06/23 20:00 09/06/23 20:14 09/06/23 20:00 09/06/23 20:14 09/06/23 20:00
MDM/Problems Addressed
MDM/Problems Addressed:
During short ambulation ED, patient noted to become extremely dyspneic without hypoxia during short ambulation.
Chest x-ray: Left pleural effusion noted, unchanged from previous x-ray.
Patient with wheezing on exam, which may be contributing to his presenting symptoms. As such, patient given nebulizer treatment along with Decadron IV. Patient will be admitted for further evaluation and treatment.
*EKG
Interpreted by ED Provider?: Yes
EKG Intrepretation Date: 09/06/23
Heart Rate: 99
Rate: normal
Rhythm: sinus
[place]: normal axis
Interval: normal interval
*Critical Care Note
Total Time (30-74mins, 75-104mins- exclusive of procedures): Not Applicable
ED Attending Note
-
Portions of this chart may have been created with voice recognition software.� Occasional wrong word or��sound alike� substitutions may have occurred due to the inherent limitations of voice recognition software.
Discharge Plan
Departure
Patient Disposition: Admit
Date of Disposition: 09/06/23
Time of Disposition: 17:48
Admit to: Telemetry
Presentation/result/management discussed w/ accepting MD/DO: Hospitalist
Condition: Fair
Covid-19: Negative COVID-19
Discharge Problem:
BAUM (dyspnea on exertion), COPD (chronic obstructive pulmonary disease)
Interventions
Interventions:
*Risk Screen - Suicide Last Done: 09/06/23 14:38
*General Assessment Last Done: 09/06/23 14:38
*Neglect/Abuse Screening Last Done: 09/06/23 14:38
ED- Fall Risk Assessment Last Done: 09/06/23 19:40
*ED COVID-19 Vaccine History Last Done: 09/06/23 19:51
*Nursing Disposition Last Done: 09/06/23 19:40
ED- Cardiac Assessment Last Done: 09/06/23 15:49
ED- Pulmonary Assessment Last Done: 09/06/23 15:49
Discharge Date and Time
Discharge Date/Time: 09/06/23 19:41
[2023-09-06 16:37] LABS: % Basophils 0.4 % (0-2); % Eosinophils 13.4 % (0-6); % Immature Granulocytes 0.4 % (0-0.5); % Monocytes 9.1 % (1.7-9.3); % Neutrophils 61.7 % (42.2-75.2); Absolute Basophils 0.1 10^3/uL (0-0.2); Absolute Eosinophils 1.5 10^3/uL (0-0.7); Absolute Lymphocytes 1.7 10^3/uL (1.2-3.4); Hematocrit 30.8 % (39.0-52.0); Hemoglobin 10.4 g/dL (13.0-18.0); Mean Corp Hgb Conc. 33.8 g/dL (33.0-37.0); Mean Corpuscular Hgb 32.1 pg (27.0-31.0); Mean Corpuscular Volume 95.1 fL (80.0-94.0); Mean Platelet Volume 8.4 fL (7.4-10.4); Nucleated Red Blood Cells % 0 % (-); Platelet Count 393 10^3/uL (130-400); Red Blood Cell Count 3.24 10^6/uL (4.70-6.10); Red Cell Dist. Width 15.1 % (11.5-14.5); White Blood Cell Count 11.4 10^3/uL (4.8-10.8)
[2023-09-06 16:47] LABS: COVID-19 Antigen Negative (Negative)
[2023-09-06 16:51] LABS: ALT (SGPT) 38 U/L (0-50); AST (SGOT) 35 U/L (17-59); Albumin 3.8 g/dl (3.5-5.0); Alkaline Phosphatase 122 U/L (38-126); Blood Urea Nitrogen 16 mg/dl (9-20); Carbon Dioxide 25 mmol/L (22-30); Chloride 99 mmol/L (98-107); Estimated Creatinine Clearance 82 ml/min; Glucose 107 mg/dl (70-99); Magnesium 2.2 mg/dl (1.6-2.3); Potassium 4.4 mmol/L (3.5-5.1); Sodium 130 mmol/L (135-145); Total Bilirubin 0.5 mg/dl (0.2-1.3); Total Protein 7.1 g/dl (6.3-8.2); eGFR > 60.00
[2023-09-06 16:58] LABS: NT-proBNP 744 pg/ml; Troponin I 0.016 ng/ml
[2023-09-06] MEDS: DUONEB 3 ML INH (17:52)
[2023-09-06] MEDS: DECADRON 6 MG IV (17:53)
--- NOTE | 2023-09-06 18:18 | HPS.HSE ---
Family Physician
-
Family Physician: Josefa Stewart
Chief Complaint
-
shortness of breath
History of Present Illness
73-year-old male past medical history of CAD status post CABG 4 weeks ago, paroxysmal atrial fibrillation, hypertension, hyperlipidemia, BPH, cervical stenosis, remote seizure disorder presenting with worsening shortness of breath with exertion over
the past month since having CABG surgery a month ago.
Patient was seen by his manufacturing technology analyst and had outpatient x-ray yesterday which revealed increased pleural effusion. Hospital Admitting Clerk spoke with Dr. Brown who recommended patient come to the hospital. Patient denies any chest pain or fevers or chills
or cough. He has occasional dizziness. Denies any leg pain or swelling. Denies any back pain. Denies vomiting or diarrhea. Denies any weight gain.
Patient had been having shortness of breath prior to the surgery and negative testing for pulmonary pathology. He underwent cardiac catheterization showed triple-vessel disease prompting CABG.
Denies smoking or alcohol use.
Medical History
Past Medical History
Past Medical History: Reports Other (CAD status post CABG 4 weeks ago, paroxysmal atrial fibrillation, hypertension, hyperlipidemia, BPH, cervical stenosis, remote seizure disorder)
Past Surgical History: Reports Other (CABG )
Social History
Tobacco: Non-smoker
Alcohol: None
Drug: None
Family History
Family History: Not pertinent
Allergies / Home Medications
Allergies reflects when Allergies were last updated in [employer].
Home Medications with original date entered in [employer] [facility]
Allergy/Medication List:
Allergies
Allergy/AdvReac Type Severity Reaction Status Date / Time
No Known Allergies Allergy Verified 12/10/21 09:01
Home Medications
apixaban 5 mg tablet (Eliquis) 5 mg PO BID Blood Clot Prevention/Tx 04/03/21
phenytoin sodium extended 100 mg capsule 200 mg PO BID Seizures 04/03/21
Calm Supplement 1 tsp PO DAILY Supplement 08/09/23
Trace Minerals Supplement 1 cap PO NOON Supplement 08/09/23
diazepam 5 mg tablet 5 mg PO HS PRN muscle spasms/sleep 08/09/23
rosuvastatin 20 mg tablet 20 mg PO DAILY High Cholesterol 08/09/23
pantoprazole 40 mg tablet,delayed release 40 mg PO DAILY GI prophylaxis #30 tabs 08/19/23
acetaminophen 500 mg tablet (Tylenol Extra Strength) 1,000 mg PO Q6H PRN mild pain 09/06/23
aspirin 81 mg tablet,delayed release 81 mg PO DAILY 09/06/23
docusate sodium 100 mg capsule (Colace) 100 mg PO DAILY 09/06/23
ferrous sulfate 325 mg (65 mg iron) tablet (iron) 325 mg PO DAILY 09/06/23
metoprolol succinate 25 mg tablet,extended release 24 hr 12.5 mg PO DAILY@199909/06/23
tamsulosin 0.4 mg capsule 0.4 mg PO DAILY 09/06/23
Review of Systems
-
History Source: Patient
A 12 point ROS was completed and negative except as noted: Yes
Constitutional: Reports No Symptoms
EENT: Reports No Symptoms
Respiratory: Reports See HPI
Cardiac: Reports See HPI
Abdomen/GI: Reports No Symptoms
: Reports No Symptoms
Musculoskeletal: Reports No Symptoms
Skin: Reports No Symptoms
Neurological: Reports No Symptoms
Endocrine: Reports No Symptoms
Hematologic/Lymphatic: Reports No Symptoms
Psych: Reports No Symptoms
Physical Exam
Vital Signs
Vital Signs
Temp Pulse Resp BP Pulse Ox
97.6 F 98 22 108/70 92
09/06/23 14:38 09/06/23 17:00 09/06/23 17:00 09/06/23 17:00 09/06/23 16:45
Physical Exam
General: Well Developed, Well Nourished and No Apparent Distress
HEENT: NormoCephalic, Moist mucous membranes and Atraumatic
Respiratory: Clear
Cardiac: S1/S2 and Regular Rhythm; No Murmur or Rub
GI: Soft, Non Tender, Non Distended and Normal Bowel Sounds; No Organomegaly
Rectal: Deferred by Provider
Musculoskeletal: No Clubbing, No Cyanosis and No Edema
Skin: No Rash
Neuro: Nonfocal/grossly intact
Laboratory Results
-
09/06/23 16:26
09/06/23 16:
Laboratory Results
Total Bilirubin 0.5 mg/dl (0.2-1.3) 09/06/23 16:
AST 35 U/L (17-59) 09/06/23 16:
ALT 38 U/L (0-50) 09/06/23 16:
Alkaline Phosphatase 122 U/L (38-126) 09/06/23 16:
Troponin I 0.016 ng/ml 09/06/23 16:
Data Reviewed
-
Lab Data: Labs Reviewed by me
Old Records: Reviewed
Impression/Plan
-
IMPRESSION:
PLAN:
# Exertional dyspnea secondary to left pleural effusion after recent CABG
-Chest x-ray shows relatively stable opacity at the left lung base likely representing combination of residual pleural thickening and pleural effusion
-Cardiac BNP of 700
-Cardiothoracic surgery recommended diagnostic thoracentesis by IR
-IR consulted
-Given DuoNebs and dexamethasone by ER due to respiratory wheezing, however no history of asthma/COPD or smoking
CAD status post CABG
-Continue aspirin
Paroxysmal atrial fibrillation
-Continue Eliquis
Paroxysmal atrial fibrillation
-Continue metoprolol
Essential hypertension
Hyperlipidemia
-Continue statin
BPH
-Continue tamsulosin
Cervical stenosis
Remote seizure history
-Continue phenytoin
GERD
-Continue Protonix
DNR/DNI
DVT prophylaxis-Eliquis
Regular diet
[2023-09-06] MEDS: TOPROL XL 12.5 MG PO (20:14)
[2023-09-06] MEDS: ELIQUIS 5 MG PO (20:15)
[2023-09-06] MEDS: DILANTIN 200 MG PO (20:15)
--- NOTE | 2023-09-06 20:41 | PTCARENOTE ---
Patient received in bed from ED @ 2000, AAOx3, pt ambulated from stretcher to bed. Patient oriented to room and call dominique.
[2023-09-06] MEDS: VALIUM 5 MG PO (22:48)
[2023-09-07] VITALS (9 sets, daily range): BP systolic 90–132; BP diastolic 57–80
--- NOTE | 2023-09-07 04:27 | DOWNTIME ---
There was a Opternative Client Botany Technician Downtime on 09/07/2023 from 0111 to 09/07/2023 at 0405. Downtime documentation of patient's care, including medication administrations, has been reconciled in the electronic record per guidelines. Refer to the
patient's paper chart under the miscellaneous tab to see printed paper medication records and downtime forms.
[2023-09-07] MEDS: DILANTIN 200 MG PO ×2 (07:39→19:14)
[2023-09-07] MEDS: PROTONIX 40 MG PO (07:39)
[2023-09-07] MEDS: FLOMAX 0.400000000000000022 MG PO (07:39)
[2023-09-07] MEDS: COLACE 100 MG PO (07:39)
[2023-09-07] MEDS: ASPIR LOW (ENTERIC COATED) 81 MG PO (07:39)
[2023-09-07] MEDS: CRESTOR 20 MG PO (07:39)
[2023-09-07] MEDS: ELIQUIS 5 MG PO ×2 (07:39→19:15)
[2023-09-07] MEDS: FEOSOL 325 MG PO (07:39)
[2023-09-07 08:00] LABS: % Basophils 0.7 % (0-2); % Eosinophils 7.1 % (0-6); % Immature Granulocytes 0.4 % (0-0.5); % Lymphocytes 18.9 % (20.5-51.1); % Monocytes 8.4 % (1.7-9.3); % Neutrophils 64.5 % (42.2-75.2); Absolute Basophils 0.1 10^3/uL (0-0.2); Absolute Eosinophils 0.7 10^3/uL (0-0.7); Absolute Lymphocytes 1.8 10^3/uL (1.2-3.4); Absolute Monocytes 0.8 10^3/uL (0.1-0.6); Absolute Neutrophils 6.3 10^3/uL (1.4-6.5); Hematocrit 30.3 % (39.0-52.0); Hemoglobin 10.2 g/dL (13.0-18.0); Mean Corp Hgb Conc. 33.7 g/dL (33.0-37.0); Mean Corpuscular Hgb 32.1 pg (27.0-31.0); Mean Corpuscular Volume 95.3 fL (80.0-94.0); Mean Platelet Volume 8.4 fL (7.4-10.4); Nucleated Red Blood Cells % 0 % (-); Platelet Count 366 10^3/uL (130-400); Red Blood Cell Count 3.18 10^6/uL (4.70-6.10); Red Cell Dist. Width 14.9 % (11.5-14.5); White Blood Cell Count 9.8 10^3/uL (4.8-10.8)
[2023-09-07 08:36] LABS: ALT (SGPT) 37 U/L (0-50); AST (SGOT) 35 U/L (17-59); Albumin 3.2 g/dl (3.5-5.0); Alkaline Phosphatase 102 U/L (38-126); Blood Urea Nitrogen 14 mg/dl (9-20); Calcium 9.5 mg/dl (8.4-10.2); Carbon Dioxide 28 mmol/L (22-30); Chloride 97 mmol/L (98-107); Estimated Creatinine Clearance 85 ml/min; Glucose 99 mg/dl (70-99); Potassium 4.7 mmol/L (3.5-5.1); Sodium 133 mmol/L (135-145); Total Bilirubin 0.5 mg/dl (0.2-1.3); Total Protein 6.4 g/dl (6.3-8.2); eGFR > 60.00
--- NOTE | 2023-09-07 08:44 | CONSULT.CT ---
Addendum entered and electronically signed by Omega Brown MD 09/07/23 13:54:
CARDIAC SURGERY ATTENDING:
It was my pleasure to evaluate Mr. Reyes Stewart. He is well known to our service s/p CABG x 4 (ANTONY to LAD, GSV OM2 w/ GSV to D1, GSV to PDA) w/ [facility] MAZE and ELAA. He had 'episodes' preoperatively where he would become acutely tachypneic w/
subjective SOB w/o evidence of desaturation, arrhythmia, or hemodynamic changes. He presented to the ED secondary to ongoing episodes of SOB, profound lethargy, and continued 'episodes'. He relates that he has been 'unable to walk more than 10
feet during the day' but also stated that he is able to walk around the house at night without profound difficulty. He is clearly frustrated w/ his current state of health.
His admission CXR demonstrated a small LEFT pleural effusion, IR kindly performed thoracentesis w/ -400mL serosanguineous fluid removed from his L hemithorax. His CXR demonstrated improvement post thoracentesis. His Hgb and PLT counts are
recovering as expected. He does not have a significant leukocytosis. His CTNI was not inappropriately elevated (0.016). His EKG was NSR w/ resolution of the INGRID previously present in his lateral leads. Currently he is in NSR in the 90s, but on
review of his telemetry he appears to have not infrequent episodes of tachycardia, ?AF.
His intraoperative, post-procedure AGUSTIN assessment had demonstrated LVEF 55-60% w/ Stage 1 DD, mild TR, and [id number] MR.
These 'episodes' are a bit of an enigma at present. I greatly appreciate the expertise of my medical colleagues.
Will closely follow.
- F/U echocardiogram
- Diuresis
- Rate-control/Eliquis for PAF
Original Note:
Consultation
-
Date/Time Consultation Requested: 09/07
Date/Time Consultation Performed: 09/07
Performing Provider: Bia Still for Dr Brown
Reason for Consultation: shortness of breath s/p CABG
Patient History
Physicians
Family Physician: Josefa Stewart
Outpatient [facility]: Leoncio Hall
History of Present Illness
�Mr. Stewart is a 73-year-old male known to ur service from recent CABG x 4 MACDONALD-LAD, SVG-D1 and Y graft to OM 2, SVG-PDA, MAZE procedure, left atrial appendage # 45mm Atricure clip with Dr. Brown on 08/15. He received post-op blood
transfusion for symptomatic anemia and was discharged to home on ASA/Eliquis for paroxysmal atrial fibrillation. Post-op AGUSTIN reported EF 55-60%, stage 1 diastolic dysfunction, mild TR and trivial to mild MR. Mr. Stewart was readmitted 09/06 for
complaint of shortness of breath and increased pleural effusion on CXR. Patient states that this symptom is unchanged since prior to surgery with pre-op negative work-up by pulmonary. He states the feeling is worse in the morning and that he feels
'exhausted' after 10 minutes of activity. He denies fever, cough, PND, othopnea. Admission BNP 744 and small-moderate left pleural effusion noted on CXR.
Past Medical History
Past Medical History: Other
paroxysmal atrial fibrillation
hypertension
hyperlipidemia
BPH
cervical stenosis
remote seizure disorder
Past Surgical History
Past Surgical History: Other
Right retinal surgery
Right total hip arthroplasty 2015
Neck discectomy and fusion surgery 09/2022�����
Appendectomy�����
Loop recorder, [place] 04/21/2023
Family History
Mother: N/A
Father: at Age (59-CAD)
Family Medical History: CAD
Social History
Alcohol: None
Drug: None
Tobacco: Non-Smoker
Personal:
Living: With Spouse
Employment: Retired
Allergies
Allergy/AdvReac Type Severity Reaction Status Date / Time
No Known Allergies Allergy Verified 12/10/21 09:01
Home Medications
Medication Instructions Recorded Confirmed Type
apixaban 5 mg tablet (Eliquis) 5 mg PO BID Blood Clot 04/03/21 09/06/23 History
Prevention/Tx
phenytoin sodium extended 100 mg 200 mg PO BID Seizures 04/03/21 09/06/23 History
capsule
Calm Supplement 1 tsp PO DAILY Supplement 08/09/23 09/06/23 History
Trace Minerals Supplement 1 cap PO NOON Supplement 08/09/23 09/06/23 History
diazepam 5 mg tablet 5 mg PO HS PRN muscle spasms/sleep 08/09/23 09/06/23 History
rosuvastatin 20 mg tablet 20 mg PO DAILY High Cholesterol 08/09/23 09/06/23 History
pantoprazole 40 mg tablet,delayed 40 mg PO DAILY GI prophylaxis #30 08/19/23 09/06/23 Rx
release tabs
acetaminophen 500 mg tablet 1,000 mg PO Q6H PRN mild pain 09/06/23 09/06/23 History
(Tylenol Extra Strength)
aspirin 81 mg tablet,delayed 81 mg PO DAILY 09/06/23 09/06/23 History
release
docusate sodium 100 mg capsule 100 mg PO DAILY 09/06/23 09/06/23 History
(Colace)
ferrous sulfate 325 mg (65 mg 325 mg PO DAILY 09/06/23 09/06/23 History
iron) tablet (iron)
metoprolol succinate 25 mg 12.5 mg PO DAILY@199909/06/23 09/06/23 History
tablet,extended release 24 hr
tamsulosin 0.4 mg capsule 0.4 mg PO DAILY 09/06/23 09/06/23 History
Review of Systems
-
History Source: Patient
HEENT: Reports No Symptoms
Respiratory: Reports SOB and BAUM
Cardiac: Reports No Symptoms
Abdomen/GI: Reports No Symptoms
: Reports No Symptoms
Musculoskeletal: Reports No Symptoms
Skin: Reports No Symptoms
Neurological: Reports No Symptoms
Vascular: Reports No Symptoms
Physical Exam
Vital Signs
Temp 98.7 F 09/07/23 07:15
Temp route: Oral 09/07/23 07:15
Pulse 93 09/07/23 07:15
Rhythm: Normal sinus rhythm 09/06/23 23:00
Resp Rate 18 09/07/23 07:15
Blood pressure 112/65 09/07/23 07:15
Blood pressure extremity used: Right upper arm 09/07/23 07:15
Position: Lying 09/07/23 07:15
MAP (cuff-Matilda Monitor) 81 09/06/23 19:00
SaO2 95 09/07/23 07:15
Oxygen Mode of Delivery Room air 09/07/23 07:15
Can the patient verbally communicate their pain? Yes 09/06/23 23:00
Actual Weight 67.84 kg 09/06/23 19:49
Body Mass Index (BMI) 23.4 09/06/23 19:49
Labs
09/07/23 06:48
09/07/23 06:48
Troponin I 0.016 ng/ml 09/06/23 16:26
Zyh-G-Zlmvbhpnvkj Pept 744 pg/ml 09/06/23 16:26
Exam
General: Well Developed, Well Nourished and No Apparent Distress
HEENT: Normocephalic, Anicteric, Moist Mucous Membranes and PERRLA
Respiratory: Other (decrease breath sounds left base)
Cardiac: S1/S2 and Regular Rhythm
GI: Soft, Non Tender, Non Distended and Normal Bowel Sounds
Rectal: Deferred by Provider
Skin: Warm and Dry
Neuro: AO x 3, No Motor Deficits and Nonfocal/Grossly Intact
Extremities: Pulses (+2/4 DP pulses B/L)
Lymph: No Lymphadenopathy
Psych: Calm
Assessment / Plan
-
73 year old male readmitted with shortness of breath, left pleural effusion and elevated BNP
- Interventional radiology to evaluated for thoracentesis
- t/c repeat echo and diuresis
- rest of management per primary team
Data Reviewed
-
EKG: Report Reviewed by me and Discussed with Physician
Radiology: Report Reviewed by me and Discussed with Physician
Labs: Labs Reviewed by me and Discussed with Physician
--- NOTE | 2023-09-07 11:17 | CM ---
Addendum entered by Bia Norman 09/07/23 14:48:
Pharmacy: [facility] in [place]
PCP Viktor Stewart
Plan: Home no needs anticiapted.
Original Note:
Patient seen bedside.
IA completed.
Patient lives with spouse in a 2 storyu home with no steps to enter.
Patient does drive but not recently.
Patient independent prior to admission without assistive devices.
Does have a RW available at home from prior hip surgery.
Patient has had [facility] in the past.
[2023-09-07 11:39] LABS: Body Fluid Protein 5.4 g/dl
[2023-09-07 11:40] LABS: Body Fluid Triglycerides < 30 mg/dl
--- NOTE | 2023-09-07 11:40 | W.PN.HOSP.TC ---
Today's Communication/Plan
-
see bold
Assessment / Plan
Assessment / Plan
Gen: NAD, Awake and alert
Eyes: EOMI, PERRLA, no scleral icterus.
Neck: supple.
CV: RRR, +S1/S2, no m/r/g.
Resp: CTAB anteriorly, no rales, wheezes, or rhonchi.
Abd: +BS, soft, NT, ND
Skin: No rashes.
Neuro: CN 2-12 intact, non-focal.
Psych: Normal mood and affect.
Exertional dyspnea secondary to left pleural effusion after recent CABG:
-Given DuoNebs and dexamethasone by ER due to respiratory wheezing, however no history of asthma/COPD or smoking
-Chest x-ray shows relatively stable opacity at the left lung base likely representing combination of residual pleural thickening and pleural effusion
-Cardiac BNP of 700
-Cardiothoracic surgery recommended diagnostic thoracentesis by IR. Pt had 500cc removed (by his report), pH 7.4, WBC 5297, Prot 5.4, LDH pending
-afebrile, minimal leukocytosis on admission has resolved
-c/s pulm
CAD status post CABG: cont BB/ASA/statin
Paroxysmal atrial fibrillation: Continue metoprolol/Eliquis
Essential hypertension: Cont BB
Hyperlipidemia: Continue statin
BPH: Continue tamsulosin
Cervical stenosis
Remote seizure history: Continue phenytoin
GERD: Continue Protonix
DNR/DNI/Eliquis
Anticipated Discharge: Within 24 hours
Subjective/Interval History
-
Date of Service: September 07, 2023
Denies CP/SOB.
Objective Data
-
Labs:
Laboratory Results
09/07/23
06:48
WBC 9.8
Hgb 10.2 L
Hct 30.3 L
Plt Count 366
Sodium 133 L
Potassium 4.7
Chloride 97 L
Carbon Dioxide 28
BUN 14
Creatinine 0.7
Glucose 99
Calcium 9.5
Total Bilirubin 0.5
AST 35
ALT 37
Alkaline Phosphatase 102
Vital Signs:
Vital Signs
Temp Pulse Resp BP Pulse Ox
98.4 F 92 19 111/68 96
09/07/23 11:23 09/07/23 11:23 09/07/23 11:23 09/07/23 11:23 09/07/23 11:23
I&O
09/06/23 09/07/23 09/08/23
06:59 06:59 06:59
Intake Total 480 / 480
Balance 480 / 480
[2023-09-07 11:55] LABS: Body Fluid Mononuclear 60.1 %; Body Fluid Polymorphonuclear 39.9 %; Body Fluid WBC 5297 /CUMM
[2023-09-07 11:57] LABS: Body Fluid Second Tech SD
[2023-09-07] MEDS: TYLENOL 1000 MG PO (11:58)
--- NOTE | 2023-09-07 14:12 | CON.CAR ---
Consultation
Consultation Request
Date/Time Consultation Requested: 09/07/23
Date/Time Consultation Performed: 09/07/23
Requesting Provider: Dr. Stewart
Performing Provider: Dr. Patel
Reason for Consultation: Pleural effusion, Afib
Medical History
-
History of Present Illness:
Patient came to [facility] yesterday with increasing BAUM and was admtited with a left sided pleural effusion. Patient follows with Dr. Coombs and was seen at for an evaluation for CABG after a cath at [facility] 08/03/23 showed MV CAD. Patient was admtited
through [facility] 08/09/23 and then had CABG, MAZE and RANDA clip 08/15/23. He was discharged to home 08/21/23. Patient has had increasing BAUM at home. Patient was being followed by the transitional care nurse and then the CT surgery office as an outpatient,
he had an outpatient CXR performed yesterday that showed increased pleural effusion and he was referred to ER for evaluation. Patient then had a left-sided thoracentesis performed in IR today where they removed 400 mL of serosanguineous fluid.
The patient's reports that he initially felt much improved upon returning to his room, but then later felt as though his heart was racing and became discouraged. He is tearful at times as he feels he is not improving on an appropriate time
scale. Patient has a history of paroxysmal atrial fibrillation and atrial tachycardia. He had a PVI 04/22/2021, repeat PVI 11/20/2021 and then finally had an ablation with Dr. Mijares at [place] on 05/01/2023. Interspersed he has had cardioversions and
was also at one point treated with propafenone. Patient was in sinus rhythm at time of discharge 08/19/2023. ECG upon admission yesterday, 09/06/2023 as read by me showed sinus rhythm. Telemetry is reviewed by me shows evidence of sinus tachycardia
while sitting up on the edge of the bed earlier today.
PMH:
CAD s/p CABG x 4 (MACDONALD-LAD, SVG-D1 Y graft to OM2, SVG-PDA) MAZE, and RANDA clip 08/15/2023
Paroxysmal atrial fibrillation/atrial tachycardia
Previously treated with propafenone
Status post PVI ablation 04/22/2021
Status post repeat PVI 12/10/2021
Cardioversion 03/2023
s/p repeat Ablation at [place] w/ Dr. Mijares 05/01/23
Implantable long-term library monitor performed at [place]
Chronic anticoagulation with Eliquis
Hypertension
Hyperlipidemia
BPH
Past Medical History
Past Medical History: Other (in HPI)
Past Surgical History: Appendectomy, Cardiac and Orthopedic
Social History
Tobacco: Non-Smoker
Alcohol: None
Drug: None
Personal:
Living: With Family
Family History
Family History: CAD
Allergies / Home Medications
Allergy/AdvReac Type Severity Reaction Status Date / Time
No Known Allergies Allergy Verified 12/10/21 09:01
Medication Instructions Recorded Confirmed Type
apixaban 5 mg tablet (Eliquis) 5 mg PO BID Blood Clot 04/03/21 09/06/23 History
Prevention/Tx
phenytoin sodium extended 100 mg 200 mg PO BID Seizures 04/03/21 09/06/23 History
capsule
Calm Supplement 1 tsp PO DAILY Supplement 08/09/23 09/06/23 History
Trace Minerals Supplement 1 cap PO NOON Supplement 08/09/23 09/06/23 History
diazepam 5 mg tablet 5 mg PO HS PRN muscle spasms/sleep 08/09/23 09/06/23 History
rosuvastatin 20 mg tablet 20 mg PO DAILY High Cholesterol 08/09/23 09/06/23 History
pantoprazole 40 mg tablet,delayed 40 mg PO DAILY GI prophylaxis #30 08/19/23 09/06/23 Rx
release tabs
acetaminophen 500 mg tablet 1,000 mg PO Q6H PRN mild pain 09/06/23 09/06/23 History
(Tylenol Extra Strength)
aspirin 81 mg tablet,delayed 81 mg PO DAILY 09/06/23 09/06/23 History
release
docusate sodium 100 mg capsule 100 mg PO DAILY 09/06/23 09/06/23 History
(Colace)
ferrous sulfate 325 mg (65 mg 325 mg PO DAILY 09/06/23 09/06/23 History
iron) tablet (iron)
metoprolol succinate 25 mg 12.5 mg PO DAILY@199909/06/23 09/06/23 History
tablet,extended release 24 hr
tamsulosin 0.4 mg capsule 0.4 mg PO DAILY 09/06/23 09/06/23 History
Review of Systems
-
History Source: Patient and Family (talked with his in the room)
All other systems: Negative unless noted
Physical Exam
Vital Signs
Temp Pulse Resp BP Pulse Ox
98.4 F 99 20 101/62 98
09/07/23 11:23 09/07/23 12:47 09/07/23 12:47 09/07/23 12:47 09/07/23 12:47
General: Well developed, well nourished in NAD.
HEENT; EOMI, MMM
Heart: Reg, no murmurs
Lungs: Decreased BS left worse than right base
Extremities: No clubbing, cyanosis, lesions or edema B/L
Neuro: Grossly nonfocal
Lab Results
09/07/23 06:48
09/07/23 06:48
Troponin I 0.016 ng/ml 09/06/23 16:26
Svv-V-Ayogrnpwntl Pept 744 pg/ml 09/06/23 16:26
Impression / Plan
-
Family Physician:� Josefa Stewart
Wood Drill Operator: Dr. Coombs
Impression:
BAUM
Left sided pleural effusion
s/p left-sided thoracentesis for 400 ml serosanguineous fluid 09/07/23
CAD s/p CABG x 4 (MACDONALD-LAD, SVG-D1 Y graft to OM2, SVG-PDA) MAZE, and RANDA clip 08/15/2023
Paroxysmal atrial fibrillation/atrial tachycardia
Previously treated with propafenone
Status post PVI ablation 04/22/2021
Status post repeat PVI 12/10/2021
Cardioversion 03/2023
s/p repeat Ablation at [place] w/ Dr. Mijares 05/01/23
Implantable long-term library monitor performed at [place]
Chronic anticoagulation with Eliquis
Hypertension
Hyperlipidemia
BPH
Left heart cath 08/03/2023 ([facility]):�LM: LI.� LAD: 99% ostial.� D1 99% mid. LCX: Moderately calcified.� 50% OM1.� RCA 90% mid
Echocardiogram 08/09/2023:�EF 55 to 60%.� Mild concentric LVH.� Mild MR, mild TR with PAP 30 to 35 mmHg
Plan:
-Patient came to [facility] yesterday with increasing BAUM and was admtited with a left sided pleural effusion. Patient follows with Dr. Coombs and was seen at for an evaluation for CABG after a cath at [facility] 08/03/23 showed MV CAD. Patient was [facility] 08/[facility] and then had CABG, MAZE and RANDA clip 08/15/23. He was discharged to home 08/21/23. Patient has had increasing BAUM at home. Patient was being followed by the transitional care nurse and then the CT surgery office as an outpatient,
he had an outpatient CXR performed yesterday that showed increased pleural effusion and he was referred to ER for evaluation. Patient then had a left-sided thoracentesis performed in IR today where they removed 400 mL of serosanguineous fluid.
The patient's reports that he initially felt much improved upon returning to his room, but then later felt as though his heart was racing and became discouraged. He is tearful at times as he feels he is not improving on an appropriate time
scale. Patient has a history of paroxysmal atrial fibrillation and atrial tachycardia. He had a PVI 04/22/2021, repeat PVI 11/20/2021 and then finally had an ablation with Dr. Mijares at [place] on 05/01/2023. Interspersed he has had cardioversions and
was also at one point treated with propafenone. Patient was in sinus rhythm at time of discharge 08/19/2023. ECG upon admission yesterday, 09/06/2023 as read by me showed sinus rhythm. Telemetry is reviewed by me shows evidence of sinus tachycardia
while sitting up on the edge of the bed earlier today.
-Telemetry and ECGs reviewed. It looks like he had artifact and sinus tachycardia while sitting up on the edge of the bed earlier today, but it also sounds as though he was symptomatic with this and had palpitations. Patient has been continued on
his usual dose of Toprol XL 12.5 mg daily. Will try to increase to Toprol-XL 12.5 mg twice daily for improved heart rate control.
-His usual dose of Eliquis 5 mg twice daily has been continued. Of note he had left atrial appendage clip on 08/15/2023, no comment in intraoperative AGUSTIN report about clip.
-The patient is also taking aspirin 81 mg daily after recent CABG
[2023-09-07 14:28] LABS: Body Fluid LDH 801 U/L
--- NOTE | 2023-09-07 15:21 | CON.PUL ---
Consultation
Consultation Request
Date/Time Consultation Requested: 09-07-23
Date/Time Consultation Performed: 09-07-23
Requesting Provider: Hospitalist
Performing Provider: Dr Melchor
Reason for Consultation: L pleural effusion
Medical History
-
Chief Complaint: dyspnea
History of Present Illness:
Mr Reyes Stewart is a 73/M readm 09-06 with increasing dyspnea, found to have a small but increasing post CABG L pleural effusion.
Known to our service from recent CABG and MAZE procedure on 08-15 at .
Seen by CTSx this adm, IRad did L thoracentesis of 400 mL serosanguineous fluid 09-07
Denies cough, wheezing, CP, fever, n/v/reflux/PND
Past Medical History
Past Medical History: Other (see A&P for PMH/PSH)
Social History
Tobacco: Non-smoker
Alcohol: None
Drug: None
Personal:
Living: With Family
Employment: Retired
Family History
Family History: CAD
Allergies / Home Medications
Allergies
Allergy/AdvReac Type Severity Reaction Status Date / Time
No Known Allergies Allergy Verified 12/10/21 09:01
Home Medications
Medication Instructions Recorded Confirmed Last Taken Type
apixaban 5 mg tablet (Eliquis) 5 mg PO BID Blood Clot 04/03/21 09/06/23 09/06/23 History
Prevention/Tx
phenytoin sodium extended 100 mg 200 mg PO BID Seizures 04/03/21 09/06/23 09/06/23 History
capsule
Calm Supplement 1 tsp PO DAILY Supplement 08/09/23 09/06/23 09/06/23 History
Trace Minerals Supplement 1 cap PO NOON Supplement 08/09/23 09/06/23 09/06/23 History
diazepam 5 mg tablet 5 mg PO HS PRN muscle spasms/sleep 08/09/23 09/06/23 09/05/23 History
rosuvastatin 20 mg tablet 20 mg PO DAILY High Cholesterol 08/09/23 09/06/23 09/06/23 History
pantoprazole 40 mg tablet,delayed 40 mg PO DAILY GI prophylaxis #30 08/19/23 09/06/23 09/06/23 Rx
release tabs
acetaminophen 500 mg tablet 1,000 mg PO Q6H PRN mild pain 09/06/23 09/06/23 Unknown History
(Tylenol Extra Strength)
aspirin 81 mg tablet,delayed 81 mg PO DAILY 09/06/23 09/06/23 09/06/23 History
release
docusate sodium 100 mg capsule 100 mg PO DAILY 09/06/23 09/06/23 09/06/23 History
(Colace)
ferrous sulfate 325 mg (65 mg 325 mg PO DAILY 09/06/23 09/06/23 09/06/23 History
iron) tablet (iron)
metoprolol succinate 25 mg 12.5 mg PO DAILY@199909/06/23 09/06/23 09/05/23 History
tablet,extended release 24 hr
tamsulosin 0.4 mg capsule 0.4 mg PO DAILY 09/06/23 09/06/23 09/06/23 History
Review of Systems
-
History Source: Patient
All other systems: Negative unless noted
Respiratory: Trouble Breathing
Vitals / Labs / Diagnostic Testing
Vital Signs
Temp Pulse Resp BP Pulse Ox
98.4 F 99 20 101/62 98
09/07/23 11:23 09/07/23 12:47 09/07/23 12:47 09/07/23 12:47 09/07/23 12:47
Lab Data
09/07/23 06:48
09/07/23 06:48
Microbiology
09/07/23 10:45 Pleural Fluid Gram Stain - Preliminary
09/07/23 10:45 Pleural Fluid Fungal Culture - Preliminary
Culture in progress.
Positive cultures are reported as soon as detected.
Final report to follow in four to five weeks.
Diagnostic Testing:
Physical Exam
-
HEENT: Normocephalic and Moist Mucous Membranes
Cardiovascular: Regular Rhythm, Murmur (n) and Peripheral Edema
Respiratory: Clear and Non-Labored Respirations
GI: Non Distended and Non Tender
Neurology: Awake, AO x 3 and No Motor Deficits
Skin: Dry
General: Respiratory Distress (n)
Assessment
-
Assessment:
Mr Reyes Stewart is a 73/M readm 09-06 with increasing dyspnea, found to have a small but increasing post CABG L pleural effusion. Known to our service from recent CABG and MAZE procedure on 08-15 at . Seen by [facility]TSx this adm, IRad did L thoracentesis
of 400 mL serosanguineous fluid 09-07
Denies fever, NS, cough, wheezing. Not on home O2 or BDs
Impression:
L pleural effusion
Post CABG
Small but enlarging
S/p 400 mL thoracentesis (serosanguineous) 09-07, exudative, G negative
Conditions PERSONNEL MANAGER:
Multivessel CAD
[place], multivessel CAD
S/p CABGx4, MAZE procedure 08-15-23
PAFib/AT
Implantable long-term campus monitor
HTN
HLD
BPH
Sz disorder, on phenytoin
Nonsmoker
Plan:
Resp cade stable on RA at rest, POx 96-98%
Follow L PF results
Post CABG small but enlarging L PF
Exudate, G stain negative
Follow cx and cytology
Agree with observation off atbs, BDs, CSs
Doubt the relative small volume of PF will explain his intermittent dyspnea
Noted no h/o smoking
IS
Continue AC
TTE pending results
Disposition efforts
Diagnostic tests:
CXR 09-06-23 c/w 02-04: small but enlarging L PF
CXR 08-16-23: extubated. [facility], med/chest tubes. Cervical plate
CXR 08-15-22: postop film, ETT, [facility], bilateral chest tubes, small R PF
CXR 08-09-23: no previous films for comparison. No infiltrates. Implanted campus monitor overlying the cardiac silhouette
TTE 08-09-23: LVEF 55-605, mild LVH, mild MR. Normal RV
[2023-09-07] MEDS: TOPROL XL 12.5 MG PO ×2 (19:15→20:12)
[2023-09-07] MEDS: VALIUM 5 MG PO (23:07)
[2023-09-08 03:00] VITALS: BP 92/54
[2023-09-08 07:56] VITALS: BP 105/66
[2023-09-08] MEDS: CRESTOR 20 MG PO (08:34)
[2023-09-08] MEDS: DILANTIN 200 MG PO (08:34)
[2023-09-08] MEDS: PROTONIX 40 MG PO (08:35)
[2023-09-08] MEDS: ELIQUIS 5 MG PO (08:35)
[2023-09-08] MEDS: FEOSOL 325 MG PO (08:35)
[2023-09-08] MEDS: TOPROL XL 25 MG PO (08:35)
[2023-09-08] MEDS: COLACE 100 MG PO (08:35)
[2023-09-08] MEDS: FLOMAX 0.400000000000000022 MG PO (08:35)
[2023-09-08] MEDS: ASPIR LOW (ENTERIC COATED) 81 MG PO (08:35)
[2023-09-08 08:43] LABS: TSH Reflex To Free T4 3.55 uIU/ml (0.47-4.68)
--- NOTE | 2023-09-08 08:44 | W.PN.HOSP.TC ---
Addendum entered and electronically signed by Rohith Stewart MD 09/08/23 13:57:
Hyponatremia
Addendum entered and electronically signed by Rohith Stewart MD 09/08/23 10:59:
Case discussed with Dr. Melchor and he has cleared the pt for discharge.
Total time spent on d/c = 31 min. This included today's physical exam, progress note, review of laboratory and diagnostic data, preparation of discharge documents and prescriptions, and discussions about the pt's hospital course and discharge plan
with the patient and other medical apparatus model maker involved in the patient's care.
Original Note:
Today's Communication/Plan
-
likely d/c today after discharge discussed with pulmonary
Assessment / Plan
Assessment / Plan
Gen: NAD, Awake and alert
Eyes: EOMI, PERRLA, no scleral icterus.
Neck: supple.
CV: RRR, +S1/S2, no m/r/g.
Resp: Slightly decreased breath sounds in the left base, no rales, wheezes, or rhonchi.
Abd: +BS, soft, NT, ND
Skin: No rashes.
Neuro: CN 2-12 intact, non-focal.
Psych: Normal mood and affect.
09/07/23 10:45 Pleural Fluid Gram Stain - Preliminary
09/07/23 10:45 Pleural Fluid Fungal Culture - Preliminary
Culture in progress.
Positive cultures are reported as soon as detected.
Final report to follow in four to five weeks.
Exertional dyspnea secondary to left pleural effusion after recent CABG:
-Given DuoNebs and dexamethasone by ER due to respiratory wheezing, however no history of asthma/COPD or smoking
-Chest x-ray shows relatively stable opacity at the left lung base likely representing combination of residual pleural thickening and pleural effusion
-Cardiac BNP of 700
-Cardiothoracic surgery recommended diagnostic thoracentesis by IR. Pt had 400cc removed, exudative, pH 7.4, WBC 5297, Prot 5.4, LDH 801. Cytology pending.
-afebrile, minimal leukocytosis on admission has resolved
-tele with sinus tachycardia and artifact, BB increased
-pulm and cardiology following. Case discussed with Dr. To and he has cleared the pt for discharge.
Other problems:
CAD s/p CABG, MAZE and RANDA clip 08/15/23: cont BB/ASA/statin
Paroxysmal atrial fibrillation s/p MAZE and RANDA clip 08/15/23: Continue Toprol XL (increased dose)/Eliquis
Essential hypertension: Cont Toprol XL (increased dose)
Hyperlipidemia: Continue statin
BPH: Continue tamsulosin
Cervical stenosis
Remote seizure history: Continue phenytoin
GERD: Continue Protonix
DNR/DNI/Eliquis
Anticipated Discharge: Today
Subjective/Interval History
-
Date of Service: September 08, 2023
Patient states he feels well and wants to go home.
Objective Data
-
Vital Signs:
Vital Signs
Temp Pulse Resp BP Pulse Ox
98.0 F 67 16 92/54 95
09/08/23 03:00 09/08/23 03:00 09/08/23 03:00 09/08/23 03:00 09/08/23 03:00
I&O
09/07/23 09/08/23 09/09/23
06:59 06:59 06:59
Intake Total 480 / 480 360 / 360
Balance 480 / 480 360 / 360
[2023-09-08 11:57] VITALS: BP 101/61
--- NOTE | 2023-09-08 12:36 | W.PN.PUL3 ---
Today's Communication / Plan
-
D/c
Assessment
-
Assessment:
Mr Reyes Stewart is a 73/M readm 09-06 with increasing dyspnea, found to have a small but increasing post CABG L pleural effusion. Known to our service from recent CABG and MAZE procedure on 08-15 at . Seen by CTSx this adm, IRad did L thoracentesis
of 400 mL serosanguineous fluid 09-07
Denies fever, NS, cough, wheezing. Not on home O2 or BDs
Impression:
L pleural effusion
Post CABG
Small but enlarging
S/p 400 mL thoracentesis (serosanguineous) 09-07, exudative, G negative
Conditions COILER:
Multivessel CAD
[place], multivessel CAD
S/p CABGx4, MAZE procedure 08-15-23
PAFib/AT
Implantable long-term cafeteria monitor
HTN
HLD
BPH
Sz disorder, on phenytoin
Nonsmoker
Plan:
Resp cade stable on RA at rest, POx 95-99%
Remains afebrile and hemodyn stable
Post CABG small but enlarging L PF
Exudate, G stain negative, cx so far negative, AFB/fungi pending
Follow cx and cytology
Agree with observation off atbs, BDs, CSs
Doubt the relative small volume of PF will explain his intermittent dyspnea
Noted no h/o smoking
IS
Continue AC
TTE 09-07: normal biventricular function, mild MR/AR
Disposition efforts
Pulm cade stable for d/c, follows CTSx
Reconsult prn
Diagnostic tests:
CXR 09-06-23 c/w 08-21: small but enlarging L PF
CXR 08-16-23: extubated. [facility], med/chest tubes. Cervical plate
CXR 08-15-22: postop film, ETT, [facility], bilateral chest tubes, small R PF
CXR 08-09-23: no previous films for comparison. No infiltrates. Implanted cafeteria monitor overlying the cardiac silhouette
TTE 08-09-23: LVEF 55-605, mild LVH, mild MR. Normal RV
Subjective Data
-
Date of Service:
Date of Service: September 08, 2023
Chief Complaint: Pulmonary Follow Up
Subjective:
No major events reported
Remains afebrile, on RA, hemodyn stable
Review of Systems
General: Fever (n), Sweats (n), Chills (n) and Satisfactory Appetite
Cardiopulmonary: Dyspnea (n), Cough (n) and Chest Pain (n)
GI: Abdominal Pain (n), Nausea (n) and Vomiting (n)
Neuro: Weakness
Objective Data
Data Reviewed
Vital Signs / I&O / Oxygen:
Vital Signs
Temp Pulse Resp BP Pulse Ox
98.0 F 84 20 101/61 95
09/08/23 11:57 09/08/23 11:57 09/08/23 11:57 09/08/23 11:57 09/08/23 11:57
Intake and Output
09/07/23 09/08/23 09/09/23
06:59 06:59 06:59
Intake Total 480 / 480 360 / 360
Balance 480 / 480 360 / 360
SaO2 95
Physical Exam
General: Comfortable
HEENT: Normocephalic and Moist Mucous Membranes
Cardiovascular: Regular Rhythm, Murmur (n) and Peripheral Edema (n)
Respiratory: Clear, Non-Labored Respirations and Stridor (n)
GI: Soft, Non Distended and Non Tender
Neurology: Awake, AO x 3 and No Motor Deficits
Skin: Dry
Labs/Micro/Reports
Lab Data
09/07/23 06:48
09/07/23 06:48
Microbiology
09/07/23 10:45 Pleural Fluid Body Fluid Culture - Preliminary
No Growth After 18-24 Hours
09/07/23 10:45 Pleural Fluid Gram Stain - Preliminary
09/07/23 10:45 Pleural Fluid Fungal Culture - Preliminary
Culture in progress.
Positive cultures are reported as soon as detected.
Final report to follow in four to five weeks.
--- NOTE | 2023-09-08 12:38 | PN.CDI ---
CDI
- -
CDI:
Physician Documentation Request
Admit Date: 09/06/23 18:19
Dear Doctor Pat,
Patient admitted with pleural effusion.
Na levels documented below:
Selected Entries
Laboratory Tests
09/06/23 09/07/23
16:26 06:48
Sodium 130 L 133 L
Based on the above, please clarify in the progress notes, the appropriate diagnosis, if significant, that supports the above abnormalities and additional evaluation, monitoring and/or treatment rendered:
Hyponatremia
Insignificant abnormal lab findings
Other
Use of terms such as suspected, likely, concern for, or probable (associated with a specific diagnosis that is being evaluated, monitored, or treated as if it exists) are acceptable and can be coded in the inpatient setting, when documented at the
time of discharge.
Thank you,
Brianna GIRONN,RN,CCDS
CDI Specialist
Available via tiger text
Please use your independent medical judgment in providing your response.
--- NOTE | 2023-09-08 14:52 | CM ---
Patient for d/c home today.
Denies VN needs.
IMM completed.
Plan: home no needs.
--- NOTE | 2023-09-08 15:15 | W.DCSUMMARY ---
Discharge Summary
Discharge Data
Date of Admission: 09/06/23
Date of Discharge: 09/08/23
-
Pending Results: Yes
Additional Pending Results:
Left pleural fluid pathology/flow cytometry
Hospital Course
Primary diagnoses:
Exertional dyspnea secondary to left pleural effusion after recent coronary artery bypass grafting
Secondary diagnoses:
Hyponatremia
Coronary disease s/p coronary artery bypass grafting, MAZE and left atrial appendage clip 08/15/23
Paroxysmal atrial fibrillation
Essential hypertension
Hyperlipidemia
Benign prostatic hypertrophy
Cervical stenosis
Remote seizure history
Gastroesophageal reflux disease
Consultants:
Pulmonary
Cardiology
Cardiothoracic surgery
Imaging:
CXR 09/06/23: Relatively stable opacity at the left lung base, likely representing a combination of residual pleural thickening and pleural effusion with probable adjacent atelectasis.
CXR 09/07/23: Status post left thoracentesis. No evidence for pneumothorax.
Hospital course: 73-year-old male who presented with a chief complaint of shortness of breath as outlined in the H&P done on admission. Chest x-ray on admission above, notable for left pleural effusion. The patient was given DuoNebs and
dexamethasone by ER due to respiratory wheezing, however no history of asthma/COPD or smoking. Cardiothoracic surgery recommended diagnostic thoracentesis by IR. The patient had a left-sided thoracentesis and had 400cc of fluid removed, exudative,
pH 7.4, WBC 5297, Prot 5.4, LDH 801.� Flow cytometry was pending at the time of discharge. Patient was afebrile. He had a minimal leukocytosis on admission that resolved. Of note the patient had sinus tachycardia and artifact on telemetry. He
was seen by cardiology and his beta-rhys was increased. On the day of discharge pulmonary and cardiology cleared the patient for discharge.
Discharge Plan
-
Patient Disposition: Home (Routine Discharge)
Discharge Diagnosis/Procedures: Left pleural effusion status post thoracentesis
Condition: Good
Diet: Other diet
Additional Diets: Heart healthy
Activity: As tolerated
Driving Restrictions: As prior to admission
Referrals:
Josefa Stewart DO [Family Provider] -
Prescriptions:
New
metoprolol succinate 25 mg Tablet Extended Release 24 Hr
25 mg PO BID Qty: 30 0RF
Continued
phenytoin sodium extended 100 MG capsule
200 mg PO BID
Eliquis 5 MG tablet
5 mg PO BID
diazepam 5 mg Tablet
5 mg PO HS PRN (Reason: muscle spasms/sleep)
Patient Comments:
09/06/2023, pt. filled this med. on 07/14/2023 for 90 tablets according to PDMP.
rosuvastatin 20 mg Tablet
20 mg PO DAILY
Calm Supplement powder
1 tsp PO DAILY
Trace Minerals Supplement liquid
1 cap PO NOON
Patient Comments:
09/06/2023, 1 capful.
pantoprazole 40 mg Tablet,Delayed Release (Dr/Ec)
40 mg PO DAILY Qty: 30 0RF
aspirin 81 mg Tablet,Delayed Release (Dr/Ec)
81 mg PO DAILY
acetaminophen [Tylenol Extra Strength] 500 mg Tablet
1,000 mg PO Q6H PRN (Reason: mild pain)
tamsulosin 0.4 mg Capsule
0.4 mg PO DAILY
docusate sodium [Colace] 100 mg Capsule
100 mg PO DAILY
ferrous sulfate [iron] 325 mg (65 mg iron) Tablet
325 mg PO DAILY
Discontinued
metoprolol succinate 25 mg tablet extended release 24 hr
12.5 mg PO DAILY@1999
Discharge Orders:
Discharge Patient (As Directed); Ordered 09/08/23
Ordered By: Rohith Stewart
Discharge Date and Time
Discharge Date/Time: 09/08/23 15:07
--- NOTE | 2023-09-08 16:43 | W.PN.CARDCBS ---
Addendum entered and electronically signed by Wilbert To MD 09/08/23 16:50:
I saw and examined the patient.
The Heat Sealing Machine Operator's note was reviewed and I agree with the note.
Comment:
GEN: No distress, awake, Ox3
HEENT: supple, anicteric, mmm
LUNGS: CTA, no wheezes/rales
CV: Reg, S1/S2, / syst LSB, no gallop
ABD: soft, BS+, NT/ND
EXT: No edema
NEURO: Gross non-focal
SKIN: No rash
Plan:
Overall doing better. Telemetry with some sinus tachycardia but no significant atrial events.
Continue Toprol 25 mg p.o. twice daily.
Echo with preserved ejection fraction and mild valve disease.
Okay for discharge.
Original Note:
Today's Communication / Plan
-
Patient seen earlier today, this is a late entry note
Higher dose Toprol XL 25 mg BID upon discharge
Impression / Plan
-
Family Physician:� Josefa Stewart
Logistics Program Manager: Dr. Coombs
Impression:
BAUM
Left sided pleural effusion
s/p left-sided thoracentesis for 400 ml serosanguineous fluid 09/07/23
CAD s/p CABG x 4 (MACDONALD-LAD, SVG-D1 Y graft to OM2, SVG-PDA) MAZE, and RANDA clip 08/15/2023
Paroxysmal atrial fibrillation/atrial tachycardia
Previously treated with propafenone
Status post PVI ablation 04/22/2021
Status post repeat PVI 12/10/2021
Cardioversion 03/2023
s/p repeat Ablation at [facility] w/ Dr. Mijares 05/01/23
Implantable long-term shellfish weigher performed at [facility]
Chronic anticoagulation with Eliquis
Hypertension
Hyperlipidemia
BPH
Left heart cath 08/03/2023 ([facility]):�LM: LI.� LAD: 99% ostial.� D1 99% mid. LCX: Moderately calcified.� 50% OM1.� RCA 90% mid
Echo08/09/23:�EF 55 to 60%.� Mild concentric LVH.� Mild MR, mild TR with PAP 30 to 35 mmHg
Echo 09/07/23: EF 65 to 70%, mild aortic regurgitation, mild TR, normal regional wall motion although paradoxical septal motion consistent with postoperative status
Plan:
-Patient seen earlier today prior to discharge
-Echo stable
-Toprol XL dose increased to 25 mg BID this admission
-His usual dose of Eliquis 5 mg twice daily has been continued. Of note he had left atrial appendage clip on 08/15/2023, no comment in intraoperative AGUSTIN report about clip.
-The patient is also taking aspirin 81 mg daily after recent CABG
-D/C to home and he will follow up with Dr. Coombs
HPI: Patient came to [facility] yesterday with increasing BAUM and was admtited with a left sided pleural effusion. Patient follows with Dr. Coombs and was seen at for an evaluation for CABG after a cath at [facility] 08/03/23 showed MV CAD. Patient was admtited
through [facility] 08/09/23 and then had CABG, MAZE and RANDA clip 08/15/23. He was discharged to home 08/21/23. Patient has had increasing BAUM at home. Patient was being followed by the transitional care nurse and then the CT surgery office as an outpatient,
he had an outpatient CXR performed yesterday that showed increased pleural effusion and he was referred to ER for evaluation. Patient then had a left-sided thoracentesis performed in IR today where they removed 400 mL of serosanguineous fluid.
The patient's reports that he initially felt much improved upon returning to his room, but then later felt as though his heart was racing and became discouraged. He is tearful at times as he feels he is not improving on an appropriate time
scale. Patient has a history of paroxysmal atrial fibrillation and atrial tachycardia. He had a PVI 04/22/2021, repeat PVI 11/20/2021 and then finally had an ablation with Dr. Mijares at [facility] on 05/01/2023. Interspersed he has had cardioversions and
was also at one point treated with propafenone. Patient was in sinus rhythm at time of discharge 08/19/2023. ECG upon admission yesterday, 09/06/2023 as read by me showed sinus rhythm. Telemetry is reviewed by me shows evidence of sinus tachycardia
while sitting up on the edge of the bed earlier today.
Progress Note - Logistics Program Manager
Subjective
Date of Service: September 08, 2023
He's feeling better
Objective
Labs:
09/07/23 06:48
09/07/23 06:48
Labs
Hgb 10.2 g/dL (13.0-18.0) L 09/07/23 06:48
Hct 30.3 % (39.0-52.0) L 09/07/23 06:48
Plt Count 366 10^3/uL (130-400) 09/07/23 06:48
Sodium 133 mmol/L (135-145) L 09/07/23 06:48
Potassium 4.7 mmol/L (3.5-5.1) 09/07/23 06:48
BUN 14 mg/dl (9-20) 09/07/23 06:48
Creatinine 0.7 mg/dL (0.7-1.3) 09/07/23 06:48
Glucose 99 mg/dl (70-99) 09/07/23 06:48
Troponins
09/06/23
16:26
Troponin I 0.016
Vital Signs and I&O:
Vital Signs
Temp Pulse Resp BP Pulse Ox
98.0 F 84 20 101/61 95
09/08/23 11:57 09/08/23 11:57 09/08/23 11:57 09/08/23 11:57 09/08/23 11:57
Vital Signs
Temp Pulse Resp BP Pulse Ox
98.0 F 84 20 101/61 95
09/08/23 11:57 09/08/23 11:57 09/08/23 11:57 09/08/23 11:57 09/08/23 11:57
Intake & Output
09/06/23 09/07/23 09/08/23 09/09/23
06:59 06:59 06:59 06:59
Intake Total 480 / 480 360 / 360
Balance 480 / 480 360 / 360
Physical Exam
Physical Exam
General: Well developed, well nourished in NAD.
HEENT; EOMI, MMM
Heart: Reg, no murmurs
Lungs: Mostly clear
Extremities: No clubbing, cyanosis, lesions or edema B/L
Neuro: Grossly nonfocal
== END 2023-09-08 15:07 | disposition home or self-care (01) | DRG 187 ==
LOC: 4 WEST ACU 18:19
PROVIDERS: Radiology Vascular & Interventional Radiology; ADMITTING PHYSICIAN Hospitalist; ATTENDING PHYSICIAN Internal Medicine; CONSULT PHYSICIAN Internal Medicine Cardiovascular Disease; CONSULT PHYSICIAN Thoracic Surgery (Cardiothoracic Vascular Surgery); EMERGENCY PHYSICIAN Emergency Medicine; FAMILY PHYSICIAN Family Medicine; OTHER PHYSICIAN Internal Medicine Pulmonary Disease
PROC: 0W9B3ZX Drainage of Left Pleural Cavity, Percutaneous Approach, Diagnostic (ICD-10-PCS; 2023-09-07)
DX: J90 Pleural effusion, not elsewhere classified (principal); E87.1 Hypo-osmolality and hyponatremia; I47.19 Other supraventricular tachycardia; J44.9 Chronic obstructive pulmonary disease, unspecified; I48.0 Paroxysmal atrial fibrillation; I11.0 Hypertensive heart disease with heart failure; E78.00 Pure hypercholesterolemia, unspecified; N40.0 Benign prostatic hyperplasia without lower urinary tract symptoms; M48.02 Spinal stenosis, cervical region; G40.909 Epilepsy, unspecified, not intractable, without status epilepticus; D72.829 Elevated white blood cell count, unspecified; I25.10 Atherosclerotic heart disease of native coronary artery without angina pectoris; K21.9 Gastro-esophageal reflux disease without esophagitis; Z79.82 Long term (current) use of aspirin; Z79.01 Long term (current) use of anticoagulants; Z66 Do not resuscitate; Z11.52 Encounter for screening for COVID-19; Z95.1 Presence of aortocoronary bypass graft; Z96.641 Presence of right artificial hip joint; Z82.49 Family history of ischemic heart disease and other diseases of the circulatory system
CPT/HCPCS: 88305; 32555; 71045; 71046; 80053; 83615; 83735; 83880; 83986; 84157; 84443; 84478; 84484; 85025; 87015; 87070; 87102; 87116; 87205; 87811; 88112; 89051; 93005; 93306; 94640; 96374; 99285

== ENCOUNTER → 2023-10-10 14:09 | Outpatient (REF) | payer MEDICARE, SELFPAY | LOC: RAD 14:09 | PROVIDERS: ATTENDING PHYSICIAN Thoracic Surgery (Cardiothoracic Vascular Surgery); FAMILY PHYSICIAN Family Medicine | DX: Z95.1 Presence of aortocoronary bypass graft (principal); L76.82 Other postprocedural complications of skin and subcutaneous tissue | CPT/HCPCS: 71250 ==

== ENCOUNTER → 2023-10-11 12:27 | Outpatient (REF) | payer MEDICARE, SELFPAY | LOC: WOUND 12:27 | PROVIDERS: ATTENDING PHYSICIAN Surgery; FAMILY PHYSICIAN Family Medicine | DX: T81.41XA Infection following a procedure, superficial incisional surgical site, initial encounter (principal); S21.109A Unspecified open wound of unspecified front wall of thorax without penetration into thoracic cavity, initial encounter; Z95.1 Presence of aortocoronary bypass graft; X58.XXXA Exposure to other specified factors, initial encounter | CPT/HCPCS: 17250; 87070; 87075; 87205; 99204 ==

== ENCOUNTER → 2023-10-20 14:25 | Outpatient (REF) | payer MEDICARE, SELFPAY | LOC: WOUND 14:25 | PROVIDERS: ATTENDING PHYSICIAN Surgery; FAMILY PHYSICIAN Thoracic Surgery (Cardiothoracic Vascular Surgery) | DX: T81.41XA Infection following a procedure, superficial incisional surgical site, initial encounter (principal); Y83.8 Other surgical procedures as the cause of abnormal reaction of the patient, or of later complication, without mention of misadventure at the time of the procedure; S21.109A Unspecified open wound of unspecified front wall of thorax without penetration into thoracic cavity, initial encounter; X58.XXXA Exposure to other specified factors, initial encounter | CPT/HCPCS: 99212 ==